=== PATIENT | female | born 1950 | race African-American/Black ===

== ENCOUNTER → 2016-03-17 | Outpatient (CLI) | payer MEDICARE, OTHER | LOC: RAD 07:44 | PROVIDERS: ATTEND Internal Medicine Gastroenterology | DX: R10.11 Right upper quadrant pain (principal) | CPT/HCPCS: 78226; A9537; Q9969 ==

== ENCOUNTER → 2016-07-04 | Outpatient (CLI) | payer MEDICARE, OTHER | LOC: OD 14:34 | PROVIDERS: ATTEND Internal Medicine | DX: M79.604 Pain in right leg (principal) ==

== ENCOUNTER → 2016-07-10 | Day surgery (SDC) | payer MEDICARE, OTHER | LOC: RAD 13:38 | PROVIDERS: ATTEND Orthopaedic Surgery | PROC: BP08ZZZ Plain Radiography of Right Shoulder (ICD-10-PCS; principal; 2016-07-10) | DX: M19.111 Post-traumatic osteoarthritis, right shoulder (principal) | CPT/HCPCS: 23350; 77002 ==

== ENCOUNTER → 2016-08-20 | Outpatient (CLI) | payer MEDICARE, OTHER ==
--- NOTE | 2016-08-20 12:54 | RADIOLOGY REPORT (SQ) ---
EXAM DESCRIPTION: CERV SP 4 OR 5 VIEWS COMPLETED DATE/TIME: 08/20/2016 12:23 pm REASON FOR STUDY: CERVICALGIA COMPARISON: 09/20/2008 NUMBER OF VIEWS: Five views. TECHNIQUE: AP, lateral, obliques and odontoid radiographic images acquired of the cervical spine. LIMITATIONS: None. FINDINGS: MINERALIZATION: Normal. ALIGNMENT: Anatomic. VERTEBRAE: Vertebral bodies of normal height. Diffuse bulky anterior osteophyte formation at C5-6, C 6-7, and C7-T1. DISCS: Mild disc space loss of height at C4-5. FORAMINA: High-grade right C3-4 and C4-5 foraminal narrowing, moderate left C4-5 foraminal narrowing from facet and uncovertebral hypertrophy LATERAL AND POSTERIOR ELEMENTS: Facets, lateral masses and spinous processes without significant find ings. HARDWARE: None in the spine. SOFT TISSUES: No masses or calcifications. Lung apices clear. OTHER: No other significant finding. IMPRESSION: Bony foraminal stenosis on the right at C3-4 and bilaterally at C4-5. Degenerative disc space loss of height at C4-5 TECHNICAL DOCUMENTATION: JOB ID: [id number]- All Rights Reserved
== END ==
LOC: RAD 11:48
PROVIDERS: ATTEND Internal Medicine
DX: M54.2 Cervicalgia (principal); M48.02 Spinal stenosis, cervical region
CPT/HCPCS: 72050

== ENCOUNTER → 2016-08-21 | Outpatient (CLI) | payer MEDICARE, OTHER ==
--- NOTE | 2016-08-21 15:28 | RADIOLOGY REPORT (SQ) ---
EXAM DESCRIPTION: KUB/ABDOMEN (SINGLE VIEW) COMPLETED DATE/TIME: 08/21/2016 2:57 pm REASON FOR STUDY: SPINAL CORD STIMULATOR GENERATOR VERIFICATION M54.12 RADICULOPATHY, CERVICAL MIAH ON M54.16 RADICULOPATHY, LUMBAR REGION COMPARISON: CT abdomen pelvis 06/05/2015 Abdominal films 01/20/2011, 12/18/2006 NUMBER OF VIEWS: One view. TECHNIQUE: Supine radiographic image of the abdomen acquired. LIMITATIONS: None. FINDINGS: BOWEL GAS PATTERN: Normal bowel gas pattern. No dilated loops. CALCIFICATIONS: No suspicious calcifications. SOFT TISSUES: No gross mass or suggestion of organomegaly. HARDWARE: clips right upper quadrant post cholecystectomy. old lower lumbar fusion hardware at l4-5. battery pack for dorsal column stimulator, leads over the t11 and t12 level. BONES: Lower lumbar fusion. OTHER: No other significant finding. IMPRESSION: Moderate stool in the colon. Spinal cord stimulator battery pack over the left gluteal region. Adjacent to the battery pack, lead s are coiled. TECHNICAL DOCUMENTATION: JOB ID: [id number] [employer]- All Rights Reserved
== END ==
LOC: RAD 13:27
PROVIDERS: ATTEND Internal Medicine
DX: M54.2 Cervicalgia (principal); M54.12 Radiculopathy, cervical region; M54.16 Radiculopathy, lumbar region
CPT/HCPCS: 74000

== ENCOUNTER → 2016-09-17 | Outpatient (CLI) | payer MEDICARE, OTHER ==
--- NOTE | 2016-09-17 13:43 | RADIOLOGY REPORT (SQ) ---
EXAM DESCRIPTION: MRI CERVICAL SPINE WITHOUT COMPLETED DATE/TIME: 09/17/2016 12:34 pm REASON FOR STUDY: RADICULOPATHY, CERVICAL REGION, RADICULOPATHY, LUMBAR REGION M54.12 RADICULOPATHY , CERVICAL REGION M54.2 CERVICALGIA COMPARISON: 03/28/2014. TECHNIQUE: Sagittal and Axial imaging includes T1, T2, STIR and gradient echo sequences. LIMITATIONS: None. FINDINGS: ALIGNMENT: Normal. VERTEBRAE: Intact. BONE MARROW: Normal. No marrow replacement or reactive changes. DISCS: Normal. No significant abnormal signal or loss of height. HARDWARE: None in the spine. CORD AND BASE OF BRAIN: Normal in size and signal intensity. SOFT TISSUES: No soft tissue masses. C1-C2: No significant spinal stenosis. C2-C3: No significant spinal stenosis or exit foraminal stenosis. C3-C4: No significant spinal stenosis or exit foraminal stenosis. C4-C5: Mild posterior disc and osteophyte and uncovertebral spurring. Facet arthropathy. No signifi cant spinal stenosis. Moderate to severe bilateral exit foraminal stenosis. C5-C6: No significant spinal stenosis or exit foraminal stenosis. C6-C7: No significant spinal stenosis or exit foraminal stenosis. C7-T1: No significant spinal stenosis or exit foraminal stenosis. UPPER THORACIC: Incompletely imaged. No significant spinal stenosis or exit foraminal stenosis. OTHER: No other significant finding. IMPRESSION: CHRONIC DEGENERATIVE CHANGES AT C4-C5 WITH MODERATE TO SEVERE BILATERAL EXIT FORAMINAL S TENOSIS. NO SIGNIFICANT SPINAL STENOSIS. SIMILAR APPEARANCE TO THE PRIOR STUDY. NO OTHER SIGNIFICA NT FINDINGS. TECHNICAL DOCUMENTATION: JOB ID: [id number] [employer]- All Rights Reserved
== END ==
LOC: RAD 10:33
PROVIDERS: ATTEND Internal Medicine
DX: M54.12 Radiculopathy, cervical region (principal); M54.2 Cervicalgia; M48.02 Spinal stenosis, cervical region
CPT/HCPCS: 72141

== ENCOUNTER → 2017-01-06 | Outpatient (CLI) | payer MEDICARE, OTHER ==
--- NOTE | 2017-01-06 18:22 | RADIOLOGY REPORT (SQ) ---
EXAM DESCRIPTION: NM LUNG VENT/PERF SCAN COMPLETED DATE/TIME: 01/06/2017 6:13 pm REASON FOR STUDY: PLEURISY R09.1 PLEURISY COMPARISON: None. RADIONUCLIDE AND DOSE: 5.4 millicuries TC-99m MAA Intravenous 30.4 millicuries TC-99m DTPA Inhaled aerosol TECHNIQUE: Eight views of the lungs acquired post ventilation of DTPA aerosol. Eight matching views of the lungs acquired following injection of MAA. LIMITATIONS: None. FINDINGS: VENTILATION: Symmetric and homogeneous distribution of DTPA aerosol during ventilatory pha se. No significant areas of photopenia. PERFUSION: Perfusion images with normal homogenous activity and no wedge-shaped or segmental defects. No ventilation-perfusion mismatches. OTHER: No other significant finding. IMPRESSION: NORMAL VENTILATION-PERFUSION LUNG SCAN. NEGATIVE FOR PULMONARY EMBOLI. TECHNICAL DOCUMENTATION: JOB ID: [id number] [employer]- All Rights Reserved
--- NOTE | 2017-01-06 18:31 | RADIOLOGY REPORT (SQ) ---
EXAM DESCRIPTION: CHEST PA/LAT COMPLETED DATE/TIME: 01/06/2017 6:19 pm REASON FOR STUDY: PLEURISY COMPARISON: 03/09/2013 EXAM PARAMETERS: NUMBER OF VIEWS: two views TECHNIQUE: Digital Frontal and Lateral radiographic views of the chest acquired. RADIATION DOSE: NA LIMITATIONS: none FINDINGS: LUNGS AND PLEURA: No opacities, masses or pneumothorax. No pleural effusion. MEDIASTINUM AND HILAR STRUCTURES: No masses or contour abnormalities. HEART AND VASCULAR STRUCTURES: Heart normal size. No evidence for failure. BONES: No acute findings. HARDWARE: Neural stimulator electrodes. OTHER: No other significant finding. IMPRESSION: NO SIGNIFICANT RADIOGRAPHIC FINDING IN THE CHEST. TECHNICAL DOCUMENTATION: JOB ID: [id number] [employer]- All Rights Reserved
== END ==
LOC: RAD 15:59
PROVIDERS: ATTEND Internal Medicine
DX: R09.1 Pleurisy (principal)
CPT/HCPCS: 71020; 78582; A9540; A9567; Q9969

== ENCOUNTER → 2017-01-08 | Outpatient (CLI) | payer MEDICARE, OTHER ==
--- NOTE | 2017-01-08 16:49 | RADIOLOGY REPORT (SQ) ---
EXAM DESCRIPTION: CT THORACIC SPINE WITHOUT COMPLETED DATE/TIME: 01/08/2017 4:06 pm REASON FOR STUDY: M54.14 THORACIC RADICULOPATHY M54.14 RADICULOPATHY, THORACIC REGION COMPARISON: MRI cervical spine 09/17/2016 PA and lateral chest 01/06/2017 TECHNIQUE: Axial images acquired through the thoracic spine without intravenous contrast. Images re viewed with lung, soft tissue and bone windows. Reconstructed coronal and sagittal MPR images review ed. Images stored on PACS. All CT scanners at this facility use dose modulation, iterative reconstruction, and/or weight based d osing when appropriate to reduce radiation dose to as low as reasonably achievable (ALARA). [facility]: Dose Right [facility]: CareDose [facility]: Dose Right [facility]: Teradose 4D [facility]: Smart [employer] RADIATION DOSE: Up-to-date CT equipment and radiation dose reduction techniques were employed. CTDIv ol: 26.4 mGy. DLP: 821 mGy-cm. mGy. LIMITATIONS: None. FINDINGS: VISUALIZED LUNGS: No acute opacities. No pneumothorax. SOFT TISSUES: No soft tissue swelling. No masses. VERTEBRAL BODIES: No fractures. No dislocation. No acute findings. DISCS: There is diffuse multilevel disc space loss of height, with anterior osteophyte formation from T2-3 through T11-12. The study was performed without intrathecal contrast. No large thoracic disc herniation is identified on soft tissue windows. ALIGNMENT: Normal. TRANSVERSE PROCESSES, POSTERIOR ELEMENTS: No fractures. No dislocation. No acute findings. HARDWARE: Neurostimulator electrodes are present dorsal epidural space from the T11 through the L1 le samuel VISUALIZED RIBS: No fractures. OTHER: Patient is likely post pain management procedure. There is air in the dorsal epidural space a t the T3 level extending out the left C3-4 neural foramen. There is air in the soft tissues between the T4 and T5 spinous processes. A small amount of contrast is present in the dorsal epidural space from the T2-3 level down to the T8-9 level. IMPRESSION: Post pain management injection with air and contrast in the dorsal thoracic epidural spa ce Multilevel disc space loss of height with anterior osteophyte formation. No high-grade bony central or foraminal encroachment. TECHNICAL DOCUMENTATION: JOB ID: [id number] Quality ID # [id number]: Final reports with documentation of one or more dose reduction techniques (e.g., Au tomated exposure control, adjustment of the mA and/or kV according to patient size, use of iterative reconstruction technique) 2010 [employer]- All Rights Reserved
== END ==
LOC: RAD 16:01
PROVIDERS: ATTEND Pain Medicine Pain Medicine
DX: M54.14 Radiculopathy, thoracic region (principal)
CPT/HCPCS: 72128

== ENCOUNTER → 2017-02-11 | Outpatient (CLI) | payer MEDICARE, OTHER ==
--- NOTE | 2017-02-11 16:20 | RADIOLOGY REPORT (SQ) ---
EXAM DESCRIPTION: PHYSIO ARTERIAL LTD COMPLETED DATE/TIME: 02/11/2017 3:19 pm REASON FOR STUDY: PVD M79.609 PAIN IN UNSPECIFIED LIMB I73.9 PERIPHERAL VASCULAR DISEASE, UNSPECIF IED COMPARISON: None. TECHNIQUE: Brachial blood pressure obtained. Pressures obtained of the peripheral vessels at the lev el of the ankle. Ankle brachial indices calculated. Continuous waveforms of the posterior tibial arteries were obtained for ABIs. Toe plethysmography was performed bilaterally. LIMITATIONS: None. FINDINGS: RIGHT MONIKA: Normal, greater than 1.0. LEFT MONIKA: Normal, greater than 1.0. Continuous waveforms along the right posterior tibial artery at the ankle are multiphasic. Continuous waveforms along the left posterior tibial artery are monophasic. On the right side, toe plethysmography demonstrates decreased amplitude and delayed upstroke of the w aveforms in the 1st through 5th digits. On the left side, plethysmography demonstrates normal amplitude and minimal if any delay in the upstr juwan of the waveforms throughout the digits. IMPRESSION: NORMAL BILATERAL ABIS. Other findings as above COMMENT: [facility] NORMAL: Greater than 1.0 MINIMAL DISEASE: 0.9 to 1.0 CLAUDICATION: 0.5 to 0.9 SEVERE ARTERIAL DISEASE: Less than 0.5 [facility] NORMAL: Greater than 1.0 (1.2 If Heavy Calcifications) NORMAL TO MILD ISCHEMIA: 0.8 to 1.0 MODERATE ISCHEMIA: 0.4 to 0.8 SEVERE ISCHEMIA: Less than 0.4 TECHNICAL DOCUMENTATION: JOB ID: [id number] [employer]- All Rights Reserved
== END ==
LOC: SP 13:49
PROVIDERS: ATTEND Podiatrist Foot Surgery
DX: I73.9 Peripheral vascular disease, unspecified (principal)
CPT/HCPCS: 93922

== ENCOUNTER 2017-02-18 22:45 | Emergency (ER) | payer MEDICARE, OTHER ==
[2017-02-18 23:15] VITALS: BP 146/66
--- NOTE | 2017-02-19 00:32 | RADIOLOGY REPORT (SQ) ---
EXAM DESCRIPTION: CHEST PA/LAT CLINICAL HISTORY: pneumonia COMPARISON: None. FINDINGS: Frontal and lateral views of the chest. The cardiomediastinal silhouette has normal size and contour. No consolidation, pneumothorax, or pleural effusion. Degenerative change of the thoracic spine. Upper abdominal soft tissues are unremarkable. Dorsal generator leads. IMPRESSION: 1. No acute pulmonary process identified.
[2017-02-19 00:59] LABS: ABSOLUTE EOSINOPHILS # (AUTO) 0.2 10^3/uL (0.0-0.6); ABSOLUTE MONOCYTES (AUTO) 1.1 10^3/uL (0.1-1.4); ABSOLUTE NEUT (AUTO) 3.2 10^3/uL (1.7-8.2); BASOPHILS % (AUTO) 0.2 % (0-2); EOSINOPHILS % (AUTO) 3.1 % (0-6); HEMATOCRIT 37.3 % (36.0-47.0); HEMOGLOBIN 12.2 g/dL (12.0-15.5); LYMPHOCYTES % (AUTO) 31.4 % (13-45); MEAN CORPUSCULAR HEMOGLOBIN 27.5 pg (27.0-33.4); MEAN CORPUSCULAR HGB CONC 32.6 g/dL (32.0-36.0); MEAN CORPUSCULAR VOLUME 84 fl (80-97); MONOCYTES % (AUTO) 16.5 % (3-13); PLATELET COUNT 227 10^3/uL (150-450); RED BLOOD COUNT 4.43 10^6/uL (3.72-5.28); RED CELL DISTRIBUTION WIDTH 15.6 % (11.5-14.0); SEGMENTED NEUTROPHILS % (AUTO) 48.8 % (42-78); TOTAL CELLS COUNTED % (AUTO) 100 %; WHITE BLOOD COUNT 6.5 10^3/uL (4.0-10.5)
[2017-02-19 01:18] LABS: ANION GAP 11 (5-19); BLOOD UREA NITROGEN 12 mg/dL (7-20); CALCIUM 9.8 mg/dL (8.4-10.2); CARBON DIOXIDE 30 mmol/L (22-30); CHLORIDE 106 mmol/L (98-107); GLUCOSE 90 mg/dL (75-110); POTASSIUM 3.9 mmol/L (3.6-5.0); SODIUM 147.3 mmol/L (137-145)
[2017-02-19] MEDS ORDERED: BENZONATATE 100 MG CAPSULE PO ONE (01:40)
--- NOTE | 2017-02-19 01:44 | ER Document Report ---
ED General - General Chief Complaint: Shortness Of Breath Stated Complaint: POSSIBLE PNEUMONIA Time Seen by Provider: 02/18/17 23:58 Notes: Patient is a 66-year-old female who presents with 3 days of cough, sputum production, loss of voice, sinus pressure, body aches, and feeling generally unwell. She saw her primary care physician today and was started on Tamiflu as well as levofloxacin for presumptive diagnosis of influenza as well as a possible pneumonia. She states that she started both these medications but has not had improvement of her symptoms. She states that she came to the emergency department because she was concerned that no chest x-ray had been performed during her office visit today. She states that the symptoms have been constant since onset, unchanged. Nothing seems to improve or worsen her symptoms. She notes multiple sick contacts over the holiday season with the same symptoms. She denies any dyspnea, syncope, but does note that her chest wall and back hurt when she coughs. TRAVEL OUTSIDE OF THE [place] IN LAST 30 DAYS: No - Related Data Allergies/Adverse Reactions: morphine [Morphine] Allergy (Mild, Verified 06/05/15 06:35) Abscess at injection site oxycodone HCl [From Percocet] Allergy (Verified 06/05/15 06:35) aspirin [Aspirin] Adverse Reaction (Unknown, Verified 06/05/15 06:35) abdominal pain Past Medical History - General Information source: Patient - Social History Smoking Status: Never Smoker Chew tobacco use (# tins/day): No Frequency of alcohol use: None Drug Abuse: None Lives with: Spouse/Significant other Family History: Reviewed & Not Pertinent Patient has suicidal ideation: No Patient has homicidal ideation: No - Past Medical History Cardiac Medical History: Reports: Hx Hypercholesterolemia, Hx Hypertension Denies: Hx Coronary Artery Disease, Hx Heart Attack Pulmonary Medical History: Reports: Hx Pneumonia Denies: Hx Asthma, Hx Bronchitis, Hx COPD, Hx Tuberculosis Neurological Medical History: Reports: Hx Migraine. Denies: Hx Cerebrovascular Accident, Hx Seizures Renal/ Medical History: Denies: Hx Peritoneal Dialysis GI Medical History: Reports: Hx Gastroesophageal Reflux Disease Musculoskeltal Medical History: Reports Hx Arthritis Psychiatric Medical History: Denies: Hx Depression Past Surgical History: Reports: Hx Appendectomy, Hx Cholecystectomy, Hx Hysterectomy, Hx Orthopedic Surgery - FOOT SURGERY, KNEE SURGERY, HIP REPLACEMENT, SHOULDER SURGERY, Hx Tonsillectomy, Hx Tubal Ligation. Denies: Hx Pacemaker - Immunizations Hx Diphtheria, Pertussis, Tetanus Vaccination: No Hx Pneumococcal Vaccination: 12/24/12 Review of Systems - Review of Systems Notes: Constitutional: Negative for fever. HENT: Negative for sore throat. Eyes: Negative for visual changes. Cardiovascular: Negative for chest pain. Respiratory: Positive for cough Gastrointestinal: Negative for abdominal pain, vomiting or diarrhea. Genitourinary: Negative for dysuria. Musculoskeletal: Negative for back pain. Skin: Negative for rash. Neurological: Negative for headaches, weakness or numbness. 10 point ROS negative except as marked above and in HPI. Physical Exam - Vital signs Vitals: Temp Pulse Resp BP Pulse Ox 98.8 F 68 22 H 146/66 H 98 02/18/17 23:14 02/18/17 23:14 02/18/17 23:14 02/18/17 23:14 02/18/17 23:14 Interpretation: Normal Notes: PHYSICAL EXAMINATION: GENERAL: Mildly uncomfortable in appearance but in no acute distress HEAD: Atraumatic, normocephalic. EYES: Pupils equal round and reactive to light, extraocular movements intact, sclera anicteric, conjunctiva are normal. ENT: nares patent, oropharynx clear without exudates. Moderately dry mucous membranes. NECK: Normal range of motion, supple without lymphadenopathy LUNGS: Breath sounds clear to auscultation bilaterally and equal. Faint expiratory wheezing in all lung jarvis. HEART: Regular rate and rhythm without murmurs ABDOMEN: Soft, nontender, normoactive bowel sounds. No guarding, no rebound. No masses appreciated. EXTREMITIES: Normal range of motion, no pitting or edema. No cyanosis. NEUROLOGICAL: No focal neurological deficits. Moves all extremities spontaneously and on command. PSYCH: Normal mood, normal affect. SKIN: Warm, Dry, normal turgor, no rashes or lesions noted. Course - Re-evaluation Re-evalutation: 02/19/17 01:39 Patient presents with a clinical history and exam most consistent with an acute viral bronchitis. Patient is overall well in appearance without tachypnea, hypoxemia, tachycardia, or difficulty with ambulation. Breath sounds are clear bilaterally. No fever. Patient does have additional signs of upper respiratory infection including nasal congestion, sore throat, and sinus pressure. Chest x-ray does not show any evidence of a pneumonia and her labs are also unremarkable without any evidence of leukocytosis or significant dehydration. Patient was placed on both levofloxacin as well as Tamiflu by her primary care doctor earlier today. I have encouraged her to discontinue Tamiflu as her symptoms have been present for more than 3 days making the effectiveness of this drug extremely low in the initial benefit of this drug is already very questionable. She will continue levofloxacin as I do not wish to dramatically alter her primary care doctor's approach. At this time will discharge with return precautions and follow-up recommendations. Verbal discharge instructions given a the bedside and opportunity for questions given. Medication warnings reviewed. Patient is in agreement with this plan and has verbalized understanding of return precautions and the need for primary care follow-up in the next 24-72 hours. - Vital Signs Vital signs: Temp Pulse Resp BP Pulse Ox 98.7 F 77 20 146/66 H 98 02/19/17 01:57 02/19/17 01:57 02/19/17 01:57 02/18/17 23:14 02/19/17 01:57 - Laboratory Result Diagrams: 02/19/17 00:46 02/19/17 00:46 Laboratory results interpreted by me: 02/19/17 02/19/17 00:46 00:46 RDW 15.6 H Monocytes % 16.5 H Sodium 147.3 H - Diagnostic Test Radiology reviewed: Image reviewed, Reports reviewed Radiology results interpreted by me: 02/19/17 01:40 Chest x-ray: No evidence for pneumonia Discharge - Discharge Clinical Impression: Bronchitis, Chest wall pain Condition: Good Disposition: HOME, SELF-CARE Additional Instructions: You were seen for symptoms most consistent with bronchitis. This can take up to 12 weeks to fully resolve. This is generally due to a viral infection. Please follow-up with your primary doctor in the next 2-3 days. Return if you develop worsening cough, vomiting, fever >100.4, pass out, begin coughing blood, or have any other symptoms that are concerning to you. Please use the medications prescribed today as directed. Prescriptions: Benzonatate [Tessalon Perles 100 mg Capsule] 100 mg PO Q8HP PRN #40 capsule PRN Reason:
== END 2017-02-19 01:57 | disposition home or self-care (01) ==
LOC: ER 22:45
DX: J40 Bronchitis, not specified as acute or chronic (principal); J02.9 Acute pharyngitis, unspecified; R09.81 Nasal congestion; R05 Cough; R07.89 Other chest pain; J34.89 Other specified disorders of nose and nasal sinuses; M54.9 Dorsalgia, unspecified; I10 Essential (primary) hypertension; Z87.01 Personal history of pneumonia (recurrent); Z88.5 Allergy status to narcotic agent
CPT/HCPCS: 99285; 36415; 85025; 80048; 71020; A9270

== ENCOUNTER → 2017-02-24 | Outpatient (CLI) | payer MEDICARE, OTHER ==
--- NOTE | 2017-02-24 13:50 | WOMENS IMAGING REPORT ---
EXAM DESCRIPTION: 3D SCREENING MAMMO BILAT COMPLETED DATE/TIME: 02/24/2017 11:21 am REASON FOR STUDY: ROUTINE SCREENING; Z12.31 Z12.31 ENCNTR SCREEN MAMMOGRAM FOR MALIGNANT NEOPLASM O F SKYLER COMPARISON: 02/21/2016 and 02/19/2015. TECHNIQUE: Standard craniocaudal and mediolateral oblique views of each breast recorded using digita l acquisition and breast tomosynthesis. LIMITATIONS: None. FINDINGS: No masses, calcifications or architectural distortion. No areas of suspicion. Read with the assistance of CAD. .[facility] R2 Cenova Version 1.3 .[facility] - R2 Cenova Version 1.3 .[facility] - R2 Cenova Version 2.4 .[facility] - R2 Cenova Version 2.4 .[facility] - R2 [employer] Mechanic Version 9.2 IMPRESSION: NORMAL MAMMOGRAM. BIRADS 1. BREAST DENSITY: b. There are scattered areas of fibroglandular density. BIRAD: 1 NEGATIVE RECOMMENDATION: ROUTINE SCREENING COMMENT: The patient has been notified of the results by letter per MQSA requirements. Additional no tification policies are in place for contacting patient with suspicious or incomplete findings. Quality ID #225: The [employer] recommends an annual screening mammogram for women aged 40 years or over. This facility utilizes a reminder system to ensure that all patients receive reminder letters, and/or direct phone calls for appointments. This includes reminders for routine scr eening mammograms, diagnostic mammograms, or other Breast Imaging Interventions when appropriate. Th is patient will be placed in the appropriate reminder system. The [employer] (ACR) has developed recommendations for screening MRI of the breast s in certain patient populations, to be used in conjunction with mammography. Breast MRI surveillanc e may be appropriate for women with more than 20% lifetime risk of developing breast cancer as deter mined by genetic testing, significant family history of the disease, or history of mantle radiation f or Hodgkins Disease. ACR Practice Guidelines 2008. DBT Technology DBT is a type of tomographic mammography. With conventional mammography, overlapping breast tissue ma y make lesions difficult to detect, even with good compression. DBT uses an x-ray tube that rotates a round the breast, taking images at different angles. These images are then combined to create thin sl ices of the breast that the radiologist can view as a 3D reconstruction. The [employer]YMEY unit can perform full-field digital mammograms (2D imaging); or DBT (3D imaging); or both, in a combination mode that quickly performs both the mammogram and the tomosynthesis scan while the breast is still compressed. PQRS 6045F: Fluoroscopic imaging is not utilized for breast tomosynthesis. TECHNICAL DOCUMENTATION: FINDING NUMBER: (1) ASSESSMENT: (1) JOB ID: [id number] [employer]- All Rights Reserved
== END ==
LOC: WI 10:03
PROVIDERS: ATTEND Obstetrics & Gynecology Gynecology
DX: Z12.31 Encounter for screening mammogram for malignant neoplasm of breast (principal)
CPT/HCPCS: 77063; G0202; 77067

== ENCOUNTER → 2017-03-24 | Outpatient (CLI) | payer MEDICARE, OTHER ==
--- NOTE | 2017-03-24 17:05 | RADIOLOGY REPORT (SQ) ---
EXAM DESCRIPTION: CT CERVICAL SPINE WITHOUT COMPLETED DATE/TIME: 03/24/2017 1:17 pm REASON FOR STUDY: M54.12 RADICULOPATHY, CERVICAL REGION M54.12 RADICULOPATHY, CERVICAL REGION COMPARISON: None. TECHNIQUE: Axial images acquired through the cervical spine without intravenous contrast. Images re viewed with lung, soft tissue and bone windows. Reconstructed coronal and sagittal MPR images review ed. Images stored on PACS. All CT scanners at this facility use dose modulation, iterative reconstruction, and/or weight based d osing when appropriate to reduce radiation dose to as low as reasonably achievable (ALARA). [facility]: Dose Right [facility]: CareDose [facility]: Dose Right [facility]: Teradose 4D [facility]: [place] RADIATION DOSE: CT Rad equipment meets quality standard of care and radiation dose reduction techniq ues were employed. CTDIvol: 20.3 mGy. DLP: 455 mGy-cm. mGy. LIMITATIONS: None. FINDINGS: ALIGNMENT: Anatomic. MINERALIZATION: Normal. VERTEBRAL BODIES: No fractures or dislocation. DISCS: Mild disc space narrowing at several levels. Most conspicuous at C4-5. Associated uncoverteb ral spurring with at least moderate foraminal narrowing bilaterally at this level. Neural foramina a re otherwise generally patent as is the central canal. FACETS, LATERAL MASSES, POSTERIOR ELEMENTS: Generally intact without bulky degenerative overgrowth. No fracture or lesion. HARDWARE: None in the spine. VISUALIZED RIBS: No fractures. LUNG APICES AND SOFT TISSUES: No significant or acute findings. OTHER: No other significant finding. IMPRESSION: 1. Cervical spondylosis, most pronounced at C4-5. TECHNICAL DOCUMENTATION: JOB ID: [id number] Quality ID # [id number]: Final reports with documentation of one or more dose reduction techniques (e.g., Au tomated exposure control, adjustment of the mA and/or kV according to patient size, use of iterative reconstruction technique) 2010 [employer]- All Rights Reserved
== END ==
LOC: RAD 13:21
PROVIDERS: ATTEND Internal Medicine
DX: M54.12 Radiculopathy, cervical region (principal); M47.892 Other spondylosis, cervical region
CPT/HCPCS: 72125

== ENCOUNTER → 2017-04-06 | Outpatient (CLI) | payer MEDICARE, OTHER ==
--- NOTE | 2017-04-06 17:01 | RADIOLOGY REPORT (SQ) ---
EXAM DESCRIPTION: HAND LEFT 2 VIEWS COMPLETED DATE/TIME: 04/06/2017 2:15 pm REASON FOR STUDY: PAIN IN LEFT HAND M79.642 PAIN IN LEFT HAND COMPARISON: None. EXAM PARAMETERS: NUMBER OF VIEWS: Three views. TECHNIQUE: AP, lateral and oblique radiographic images acquired of the left hand. LIMITATIONS: None. FINDINGS: MINERALIZATION: Normal. BONES: No acute fracture or dislocation. No worrisome bone lesions. Distal osteoarthritis of the DIP joints of the seconds 3rd and 5th digits. 1st metacarpal carpal osteoarthritis. JOINTS: No erosions. No axel-articular osteopenia. No chondrocalcinosis. SOFT TISSUES: No swelling. No calcifications. OTHER: No other significant finding. IMPRESSION: Distal osteoarthritis. 1st metacarpal carpal osteoarthritis. TECHNICAL DOCUMENTATION: JOB ID: [id number] [employer]- All Rights Reserved
== END ==
LOC: OD 13:55
PROVIDERS: ATTEND Internal Medicine
DX: M79.642 Pain in left hand (principal); M19.042 Primary osteoarthritis, left hand

== ENCOUNTER 2017-04-15 07:17 | Day surgery (SDC) | payer MEDICARE, OTHER ==
[~2017-04-15 07:17] MED LIST: CEFAZOLIN 1 GM/D5W RTU 0 GM/0 ML RTUPB IV ONE; DIPHENHYDRAMINE HCL 50 MG/ML VIAL ONE; FENTANYL CITRATE INJ/PF 100 MCG/2 ML AMPUL ONE; KETOROLAC TROMETHAMINE 60 MG/2 ML SDV ONE; LIDOCAINE 2% INJ (20 MG/ML) 20 ML MDV ONE; LIDOCAINE 2% INJ-PF (20 MG/ML) 10 ML AMPUL ONE; MIDAZOLAM 2 MG/2 ML INJ ONE; PROPOFOL INJ 200 MG/20 ML VIAL IV ONE
[2017-04-15] MEDS ORDERED: CEFAZOLIN 1 GM/D5W RTU 1 GM/50 ML RTUPB IV PRN (07:50)
[2017-04-15] MEDS ORDERED: CEFAZOLIN 1 GM/D5W RTU 1 GM/50 ML RTUPB IV ONE (07:51)
[2017-04-15] MEDS: BUPIVACAINE HCL 0.5 % INJ/PF 30 ML SDV ONE ×2 (08:07)
[2017-04-15] MEDS: POLYMYXIN B SULFATE INJ 500000 UNIT VIAL ONE ×2 (08:07)
[2017-04-15] MEDS: BACITRACIN INJ 50,000 UNIT VIAL ONE ×2 (08:07)
[2017-04-15] MEDS: NORMAL SALINE INJ/PF 0.9% 10 ML SDV ONE ×2 (08:07)
--- NOTE | 2017-04-15 10:18 | SURGICARE OPERATIVE REPORT E ---
[facility] Operative Report NAME: ADRI GARCIA AGE: 66Y DATE OF SURGERY: 04/15/2017 ROOM: PREOPERATIVE DIAGNOSES: 1. Hammertoe deformity fifth digit, right foot. 2. Contracted fifth metatarsophalangeal joint, right foot. POSTOPERATIVE DIAGNOSES: 1. Hammertoe deformity fifth digit, right foot. 2. Contracted fifth metatarsophalangeal joint, right foot. SURGICAL PROCEDURES: 1. Arthroplasty at the proximal interphalangeal joint fifth digit right foot. 2. Capsulotomy fifth metatarsophalangeal joint, right foot. SURGEON: KATIA CHURCH DPM PROCEDURE: Following induction of IV regional and local anesthesia, the right foot and leg were prepped and draped in the usual sterile manner. A pneumatic tourniquet was placed around the right ankle and inflated to 250 mmHg via Esmarch bandage. The following surgical procedures were then performed: 1. Arthroplasty at the proximal interphalangeal joint fifth digit right foot. Attention was directed to the dorsal aspect of the fifth digit of the right foot where an approximately 1.5 cm dorsal linear incision was made. The incision was deep and via sharp dissection. The extensor longus tendon was incised transversely and reflected proximally from the bone. The head of the proximal phalanx was freed from its soft tissue attachments via sharp dissection. Utilizing a double-action bone cutting forceps, the head of the proximal phalanx was osteotomized perpendicular to the long axis of the bone and removed en toto from the wound. Attention was directed to the plantar aspect of the wound where the plantar plate was isolated and sharply excised. Attention was then directed to the lateral aspect of the middle phalanx. The lateral aspect of the middle phalanx was freed from its soft tissue attachments via sharp dissection. The extensor longus tendon was freed from the dorsal aspect of the base of the middle phalanx. Utilizing a rongeur, the hypertrophied bone on the lateral aspect of the middle phalanx was removed. The area was then rasped smooth utilizing a handheld horizontal rasp. The area was then flushed with copious amounts of an antibacterial saline solution. The extensor digitorum longus tendon was sutured to the flexor tendon utilizing a simple interrupted suture of 3-0 Vicryl. The extensor digitorum longus tendon was then sutured distally and proximal and distal sections were sutured back together utilizing simple interrupted sutures of 3-0 Vicryl. The skin was then coapted and maintained utilizing horizontal mattress sutures of 5-0 nylon. 2. Capsulotomy fifth metatarsophalangeal joint right foot. An x-ray was taken to identify the location of the fifth metatarsophalangeal joint, which was then marked. An incision was made approximately 1 cm in length on the dorsal aspect of the fifth metatarsophalangeal joint. The extensor digitorum longus tendon was identified and retracted laterally. A dorsal capsulotomy was then performed via sharp dissection. This allowed the proximal phalanx to take on a more anatomically correct position. The short extensor tendon was then sharply incised, but the longus tendon was left in place. The area was then flushed with copious amounts of an antibacterial saline solution. The skin was then coapted and maintained utilizing horizontal mattress sutures of 5-0 nylon. The foot was then cleansed utilizing alcohol foam. A dry sterile dressing was then applied consisting of Jose silk, 4 x 4s, Conform, Kerlix, and Coban. The pneumatic tourniquet was released. It was noted that all digits were warm and viable. The patient was then transferred to the recovery room. DICTATING PHYSICIAN: KATIA CHURCH D.P.M. [id number] PHY#: [id number] ID: [id number] JOB#: [id number] ACCT: [id number] cc:KATIA CHURCH DPM > TOMMY
--- NOTE | 2017-04-15 10:18 | SURGICARE DISCHARGE SUMMARY E ---
[facility], [place] Discharge Summary NAME: ADRI GARCIA AGE: 66Y ADMITTED: 04/15/2017 DISCHARGED: 04/15/2017 SURGICAL PROCEDURE: 1. Arthroplasty at the proximal interphalangeal joint, 5th digit, right foot. 2. Capsulotomy 5th metatarsophalangeal joint right foot. POSTOPERATIVE DIAGNOSES: 1. Hammer toe 5th digit right foot. 2. Contracted 5th metatarsophalangeal joint, right foot. SURGEON: Conchita Braga DPM HISTORY OF PRESENT ILLNESS: Patient was admitted to [facility] with a chief complaint of a painful corn that would ulcerate, as it kept hitting on her right 5th toe. The patient desired to have this problem surgically corrected to relieve the pain and the corn that would form on her toe. She underwent the above surgical procedures without any complication and was transferred to the recovery room. DISCHARGE INSTRUCTIONS: She was discharged with an ice pack and postoperative instruction. She was discharged from [facility], [place] and given a followup appointment in the doctor's office in 1 week. DICTATING PHYSICIAN: CONCHITA BRAGA D.P.M. [id number] PHY#: [id number] ID: [id number] JOB#: [id number] ACCT: [id number] cc:CONCHITA BRAGA DPM >
--- NOTE | 2017-04-15 15:38 | RADIOLOGY REPORT (SQ) ---
EXAM DESCRIPTION: NO CHG FLUORO; FOOT RIGHT 2 VIEWS COMPLETED DATE/TIME: 04/15/2017 3:17 pm REASON FOR STUDY: RT FOOT HAMMER TOE M20.41 OTHER HAMMER TOE(S) (ACQUIRED), RIGHT FOOT COMPARISON: None. FLUOROSCOPY TIME: 1 second 2 images saved to PACS. TECHNIQUE: Intra-operative images acquired during surgical procedure to evaluate progress. NUMBER OF IMAGES: 2 LIMITATIONS: Motion artifact. FINDINGS: Images centered over lateral distal metatarsals. Surgical probe overlying 5th metatarsoph alangeal joint. IMPRESSION: IMAGE(S) OBTAINED DURING PROCEDURE. COMMENT: Quality ID [id number]: Final reports for procedures using fluoroscopy that document radiation exp osure indices, or exposure time and number of fluorographic images (if radiation exposure indices are not available) Please consult full operative report of the attending physician for description of the procedure. TECHNICAL DOCUMENTATION: JOB ID: [id number] [employer]- All Rights Reserved
== END 2017-04-15 10:01 | disposition home or self-care (01) ==
LOC: SC 07:17
PROVIDERS: ATTEND Podiatrist Foot Surgery
PROC: 0SNM0ZZ Release Right Metatarsal-Phalangeal Joint, Open Approach (ICD-10-PCS; 2017-04-15)
PROC: 0SQP0ZZ Repair Right Toe Phalangeal Joint, Open Approach (ICD-10-PCS; principal; 2017-04-15 07:30)
DX: M20.41 Other hammer toe(s) (acquired), right foot (principal); M24.574 Contracture, right foot; E78.00 Pure hypercholesterolemia, unspecified; I10 Essential (primary) hypertension; G62.9 Polyneuropathy, unspecified; Z96.653 Presence of artificial knee joint, bilateral; Z96.643 Presence of artificial hip joint, bilateral; Z88.6 Allergy status to analgesic agent
CPT/HCPCS: 73620; 28285; 28270; J2250; J3490 ×6; J0690; J1200; J1885; J3010; J2704; 01480

== ENCOUNTER 2017-04-17 18:12 | Emergency (ER) | payer MEDICARE, OTHER ==
[2017-04-17] MEDS ORDERED: HYDROCODONE/ACETAMINOPHEN 5-325 MG TABLET PO ONE (18:44)
[2017-04-17] MEDS ORDERED: HYDROMORPHONE HCL INJ/PF 2 MG/ML AMPULE IM ONE (18:47)
--- NOTE | 2017-04-17 18:48 | ER Document Report ---
ED Medical Screen (RME) - General Chief Complaint: Post Surgical Pain Stated Complaint: FOOT PAIN Time Seen by Provider: 04/17/17 18:43 Mode of Arrival: Wheelchair Information source: Patient TRAVEL OUTSIDE OF THE [place] IN LAST 30 DAYS: No - HPI Patient complains to provider of: post-op pain Onset: This morning - pt. is s/p hammer toe surgery on R foot [address] Farmer. states went back to see her earlier today due to increased pain in foot. Pain has gotten worse - Related Data Allergies/Adverse Reactions: morphine [Morphine] Allergy (Severe, Verified 04/15/17 06:58) blisters at insertion site of iv,severe nausea acetaminophen [From Percocet] Allergy (Mild, Verified 04/17/17 18:15) Generalized Itching oxycodone [From Percocet] Allergy (Mild, Verified 04/17/17 18:15) Generalized Itching aspirin [Aspirin] Adverse Reaction (Intermediate, Verified 04/15/17 06:58) abdominal pain Past Medical History - Social History Chew tobacco use (# tins/day): No Frequency of alcohol use: None Drug Abuse: None - Past Medical History Cardiac Medical History: Reports: Hx Hypercholesterolemia, Hx Hypertension - medicated Denies: Hx Coronary Artery Disease, Hx Heart Attack Pulmonary Medical History: Reports: Hx Pneumonia Denies: Hx Asthma, Hx Bronchitis, Hx COPD, Hx Tuberculosis Neurological Medical History: Reports: Hx Migraine. Denies: Hx Cerebrovascular Accident, Hx Seizures Renal/ Medical History: Denies: Hx Peritoneal Dialysis GI Medical History: Reports: Hx Gastroesophageal Reflux Disease. Denies: Hx Hepatitis, Hx Hiatal Hernia, Hx Ulcer Musculoskeltal Medical History: Reports Hx Arthritis Psychiatric Medical History: Denies: Hx Depression Infectious Medical History: Denies: Hx Hepatitis Past Surgical History: Reports: Hx Appendectomy, Hx Cholecystectomy, Hx Hysterectomy, Hx Orthopedic Surgery - FOOT SURGERY, KNEE SURGERY, HIP REPLACEMENT, SHOULDER SURGERY, Hx Tonsillectomy, Hx Tubal Ligation. Denies: Hx Mastectomy, Hx Open Heart Surgery, Hx Pacemaker - Immunizations Hx Diphtheria, Pertussis, Tetanus Vaccination: No Physical Exam - Vital signs Vitals: Temp Pulse Resp BP Pulse Ox 97.9 F 87 22 H 190/88 H 100 04/17/17 18:19 04/17/17 18:19 04/17/17 18:19 04/17/17 18:19 04/17/17 18:19 Course - Vital Signs Vital signs: Temp Pulse Resp BP Pulse Ox 97.9 F 87 22 H 190/88 H 100 04/17/17 18:19 04/17/17 18:19 04/17/17 18:19 04/17/17 18:19 04/17/17 18:19
--- NOTE | 2017-04-17 19:23 | ER Document Report ---
ED Extremity Problem, Lower - General Chief Complaint: Post Surgical Pain Stated Complaint: POST SURGICAL PAIN Time Seen by Provider: 04/17/17 18:43 Mode of Arrival: Wheelchair Notes: The patient is a 66-year-old female, past medical history hypertension, presents with pain from her postsurgical wound. She had a hammertoe removed 2 days ago by her coremaker experimental and was taking Percocet and Levasy without much relief of her symptoms. She saw her coremaker experimental this afternoon and was switched to Demerol with only mild relief of her symptoms. During the appointment this afternoon, she had a hematoma evacuated. Patient denies fevers, discharge out of the wound, numbness or tingling. TRAVEL OUTSIDE OF THE [place] IN LAST 30 DAYS: No - Related Data Allergies/Adverse Reactions: morphine [Morphine] Allergy (Severe, Verified 04/15/17 06:58) blisters at insertion site of iv,severe nausea acetaminophen [From Percocet] Allergy (Mild, Verified 04/17/17 18:15) Generalized Itching oxycodone [From Percocet] Allergy (Mild, Verified 04/17/17 18:15) Generalized Itching aspirin [Aspirin] Adverse Reaction (Intermediate, Verified 04/15/17 06:58) abdominal pain Past Medical History - General Information source: Patient - Social History Smoking Status: Former Smoker Chew tobacco use (# tins/day): No Frequency of alcohol use: None Drug Abuse: None Family History: Reviewed & Not Pertinent Patient has suicidal ideation: No Patient has homicidal ideation: No - Past Medical History Cardiac Medical History: Reports: Hx Hypercholesterolemia, Hx Hypertension - medicated Denies: Hx Coronary Artery Disease, Hx Heart Attack Pulmonary Medical History: Reports: Hx Pneumonia Denies: Hx Asthma, Hx Bronchitis, Hx COPD, Hx Tuberculosis Neurological Medical History: Reports: Hx Migraine. Denies: Hx Cerebrovascular Accident, Hx Seizures Renal/ Medical History: Denies: Hx Peritoneal Dialysis GI Medical History: Reports: Hx Gastroesophageal Reflux Disease. Denies: Hx Hepatitis, Hx Hiatal Hernia, Hx Ulcer Musculoskeltal Medical History: Reports Hx Arthritis Psychiatric Medical History: Denies: Hx Depression Infectious Medical History: Denies: Hx Hepatitis Past Surgical History: Reports: Hx Appendectomy, Hx Cholecystectomy, Hx Hysterectomy, Hx Orthopedic Surgery - FOOT SURGERY, KNEE SURGERY, HIP REPLACEMENT, SHOULDER SURGERY, Hx Tonsillectomy, Hx Tubal Ligation. Denies: Hx Mastectomy, Hx Open Heart Surgery, Hx Pacemaker - Immunizations Hx Diphtheria, Pertussis, Tetanus Vaccination: No Hx Pneumococcal Vaccination: 12/24/12 Review of Systems - Review of Systems Notes: REVIEW OF SYSTEMS: CONSTITUTIONAL: -fevers, -chills EENT: -eye pain, -difficulty swallowing, -nasal congestion CARDIOVASCULAR: -chest pain, -syncope. RESPIRATORY: -cough, -SOB GASTROINTESTINAL: -abdominal pain, -nausea, -vomiting, -diarrhea GENITOURINARY: -dysuria, -hematuria MUSCULOSKELETAL: +5th right toe pain, -back pain, -neck pain SKIN: -rash or skin lesions. HEMATOLOGIC: -easy bruising or bleeding. LYMPHATIC: -swollen, enlarged glands. NEUROLOGICAL: -altered mental status or loss of consciousness, -headache, - neurologic symptoms PSYCHIATRIC: -anxiety, -depression. ALL OTHER SYSTEMS REVIEWED AND NEGATIVE. Physical Exam - Vital signs Vitals: Temp Pulse Resp BP Pulse Ox 97.9 F 87 22 H 190/88 H 100 04/17/17 18:19 04/17/17 18:19 04/17/17 18:19 04/17/17 18:19 04/17/17 18:19 - Notes Notes: PHYSICAL EXAMINATION: GENERAL: Well-appearing, well-nourished and in no acute distress. HEAD: Atraumatic, normocephalic. EYES: Pupils equal round and reactive to light, extraocular movements intact, sclera anicteric, conjunctiva are normal. ENT: nares patent, oropharynx clear without exudates. Moist mucous membranes. NECK: Normal range of motion, supple without lymphadenopathy LUNGS: Breath sounds clear to auscultation bilaterally and equal. No wheezes rales or rhonchi. HEART: Regular rate and rhythm without murmurs ABDOMEN: Soft, nontender, normoactive bowel sounds. No guarding, no rebound. No masses appreciated. EXTREMITIES: Right 5th surgical toe wound without redness, discharge or swelling. NEUROLOGICAL: Cranial nerves grossly intact. Normal speech, normal gait. Normal sensory and motor exams. PSYCH: Normal mood, normal affect. SKIN: Warm, Dry, normal turgor, no rashes or lesions noted. Course - Re-evaluation Re-evalutation: Patient surgical wound appears well and there are no signs of a recurring hematoma or infection. X-ray did not show any concerning abnormalities. Patient already on Demerol. Instructed her to add anti-inflammatories and Tylenol. 04/17/17 20:51 PROCEDURE NOTE: Base of 5th metatarsal infiltrated with 3 mL 0.5 % Bupivicaine with complete numbness of her surgical site and relief of her pain. This was done under sterile procedure. - Vital Signs Vital signs: Temp Pulse Resp BP Pulse Ox 97.9 F 87 22 H 190/88 H 100 04/17/17 18:19 04/17/17 18:19 04/17/17 18:19 04/17/17 18:19 04/17/17 18:19 Discharge - Discharge Clinical Impression: Pain following surgery or procedure Condition: Stable Disposition: HOME, SELF-CARE Additional Instructions: There are no signs of infection or recurring hematoma today. Take the next dose of Motrin or Naprosyn tomorrow morning at 8 AM. You may take Tylenol every 4 hours and your Demerol as instructed by your coremaker experimental. Follow-up with your coremaker experimental for further evaluation and treatment. Forms: Elevated Blood Pressure Referrals: BRANDEN CROWELL MD [Primary Care Provider] - Follow up as needed
--- NOTE | 2017-04-17 19:42 | RADIOLOGY REPORT (SQ) ---
EXAM DESCRIPTION: FOOT RIGHT COMPLETE COMPLETED DATE/TIME: 04/17/2017 7:30 pm REASON FOR STUDY: R foot pain (post-op) COMPARISON: FLUOROSCOPIC IMAGES FROM 04/15/2017 NUMBER OF VIEWS: Three views. TECHNIQUE: AP, lateral and oblique radiographic images acquired of the right foot. LIMITATIONS: None. FINDINGS: MINERALIZATION: Normal. BONES: Chronic posttraumatic/ degenerative change involving the 1st metatarsal and 2nd through 4th me tatarsal bases. Stable postoperative change related to arthroplasty 5th IP joint. No definite proce dural complication identified. Stable appearance of surgical fusion involving the 2nd PIP joint. JOINTS: Stable degenerative change. SOFT TISSUES: Expected soft tissue swelling. OTHER: No other significant finding. IMPRESSION: EXPECTED POSTSURGICAL CHANGE INVOLVING THE IP JOINT OF THE 5TH TOE WITH ADDENDUM STERNAL CHRONIC POSTSURGICAL/POSTTRAUMATIC/DEGENERATIVE CHANGE ABOVE. NO DEFINITE POSTPROCEDURE COMPLICA TION. TECHNICAL DOCUMENTATION: JOB ID: [id number] [employer]- All Rights Reserved Reading location - IP/workstation name: [email or web address]
[2017-04-17] MEDS ORDERED: BUPIVACAINE HCL 0.5 % INJ/PF 30 ML SDV INJ ONE (20:24)
[2017-04-17] MEDS ORDERED: NAPROXEN 250 MG TABLET PO ONE (20:24)
[2017-04-17 21:11] VITALS: BP 137/73
== END 2017-04-17 21:12 | disposition home or self-care (01) ==
LOC: ER 18:12
DX: G89.18 Other acute postprocedural pain (principal); I10 Essential (primary) hypertension; Z98.890 Other specified postprocedural states; Z87.891 Personal history of nicotine dependence
CPT/HCPCS: 99283; 96372; 73630; J3490; A9270; J1170

== ENCOUNTER 2017-04-23 13:38 | Observation (INO) | payer MEDICARE, OTHER ==
[2017-04-23] MEDS: NORMAL SALINE 1000 ML 1,000 ML IV PRN (14:06)
[2017-04-23 15:40] LABS: A TYPE INFLUENZA AG NEGATIVE (NEGATIVE); B INFLUENZA AG NEGATIVE (NEGATIVE)
--- NOTE | 2017-04-23 16:39 | RADIOLOGY REPORT (SQ) ---
EXAM DESCRIPTION: KUB/ABDOMEN (SINGLE VIEW) COMPLETED DATE/TIME: 04/23/2017 4:27 pm REASON FOR STUDY: ABDOMINAL PAIN R10.9 UNSPECIFIED ABDOMINAL PAIN R19.7 DIARRHEA, UNSPECIFIED COMPARISON: None. NUMBER OF VIEWS: One view. TECHNIQUE: Supine radiographic image of the abdomen acquired. LIMITATIONS: None. FINDINGS: BOWEL GAS PATTERN: Normal bowel gas pattern. No dilated loops. CALCIFICATIONS: No suspicious calcifications. SOFT TISSUES: No gross mass or suggestion of organomegaly. HARDWARE: Clips in the upper abdomen. Hardware in the lower lumbar spine. Spinal stimulator device with electrodes. Bilateral hip prosthesis. BONES: No acute fracture. No worrisome bone lesions. OTHER: No other significant finding. IMPRESSION: NO RADIOGRAPHIC EVIDENCE FOR ACUTE ABDOMINAL DISEASE. TECHNICAL DOCUMENTATION: JOB ID: [id number] 1996 [employer]- All Rights Reserved Reading location - IP/workstation name: [email or web address]
--- NOTE | 2017-04-23 16:39 | RADIOLOGY REPORT (SQ) ---
EXAM DESCRIPTION: CHEST PA/LAT COMPLETED DATE/TIME: 04/23/2017 4:27 pm REASON FOR STUDY: FEVER, BODY CHILLS COMPARISON: 02/19/2017. EXAM PARAMETERS: NUMBER OF VIEWS: two views TECHNIQUE: Digital Frontal and Lateral radiographic views of the chest acquired. RADIATION DOSE: NA LIMITATIONS: none FINDINGS: LUNGS AND PLEURA: No opacities, masses or pneumothorax. No pleural effusion. MEDIASTINUM AND HILAR STRUCTURES: No masses or contour abnormalities. HEART AND VASCULAR STRUCTURES: Heart normal size. No evidence for failure. BONES: No acute findings. Degenerative changes in the spine. HARDWARE: None in the chest. Clips in the upper abdomen. Spinal stimulator electrodes. OTHER: No other significant finding. IMPRESSION: NO SIGNIFICANT RADIOGRAPHIC FINDING IN THE CHEST. TECHNICAL DOCUMENTATION: JOB ID: [id number] [employer]- All Rights Reserved Reading location - IP/workstation name: [email or web address]
[2017-04-23 16:42] LABS: HEMATOCRIT 44.6 % (36.0-47.0); HEMOGLOBIN 14.7 g/dL (12.0-15.5); MEAN CORPUSCULAR HEMOGLOBIN 27.8 pg (27.0-33.4); MEAN CORPUSCULAR HGB CONC 33.1 g/dL (32.0-36.0); MEAN CORPUSCULAR VOLUME 84 fl (80-97); PLATELET COUNT 344 10^3/uL (150-450); RED BLOOD COUNT 5.31 10^6/uL (3.72-5.28); WHITE BLOOD COUNT 10.3 10^3/uL (4.0-10.5)
[2017-04-23 17:04] LABS: ALANINE AMINOTRANSFERASE 65 U/L (9-52); ALKALINE PHOSPHATASE 126 U/L (38-126); ANION GAP 15 (5-19); ASPARTATE AMINO TRANSFERASE 25 U/L (14-36); BILIRUBIN,DIRECT 0.4 mg/dL (0.0-0.4); BILIRUBIN,TOTAL 0.5 mg/dL (0.2-1.3); BLOOD UREA NITROGEN 12 mg/dL (7-20); CALCIUM 10.5 mg/dL (8.4-10.2); CARBON DIOXIDE 23 mmol/L (22-30); CHLORIDE 105 mmol/L (98-107); GLUCOSE 96 mg/dL (75-110); POTASSIUM 4.1 mmol/L (3.6-5.0); TOTAL PROTEIN 8.5 g/dL (6.3-8.2)
[2017-04-23 17:19] LABS: FREE T4 (FREE THYROXINE) 1.16 ng/dL (0.78-2.19)
[2017-04-23 17:33] LABS: THYROID STIMULATING HORMONE 0.79 uIU/mL (0.47-4.68)
[2017-04-23] MEDS ORDERED: MECLIZINE HCL 25 MG TABLET PO PRN (19:13)
[2017-04-23] MEDS ORDERED: HYDROXYZINE PAMOATE 25 MG CAPSULE PO PRN (19:13)
[2017-04-23] MEDS ORDERED: (PENDING PHARMACY ID) (Linaclotide 145 MCG) PO SCH (20:00)
[2017-04-23] MEDS ORDERED: (PENDING PHARMACY ID) (Zaleplon [Sonata] 10 MG) PO SCH ×2 (20:00→22:00)
[2017-04-23] MEDS ORDERED: (PENDING PHARMACY ID) (Tapentadol Hcl [Nucynta] 100 MG) PO SCH (20:00)
[2017-04-23] MEDS: OXYCODONE-ACETAMINOPHEN 5-325 MG TABLET PO PRN (21:36)
[2017-04-23] MEDS: DIPHENHYDRAMINE HCL 50 MG CAPSULE PO PRN (21:37)
[2017-04-24] MEDS: DIPHENHYDRAMINE HCL 50 MG CAPSULE PO PRN ×2 (05:41→21:42)
[2017-04-24] MEDS: OXYCODONE-ACETAMINOPHEN 5-325 MG TABLET PO PRN ×2 (05:41→21:42)
[2017-04-24] MEDS: NORMAL SALINE 1000 ML 1,000 ML IV PRN ×3 (05:43→21:42)
[2017-04-24] MEDS: LANSOPRAZOLE 30 MG TAB.RAP.DR PO SCH (05:44)
[2017-04-24] MEDS: LOSARTAN POTASSIUM 50 MG TABLET PO SCH (09:13)
[2017-04-24] MEDS: PREGABALIN 50 MG CAPSULE PO SCH (09:14)
[2017-04-24] MEDS: OMEGA-3 ACID ETHYL ESTERS 1 GM CAPSULE PO SCH (09:22)
[2017-04-24] MEDS ORDERED: (PENDING PHARMACY ID) (Pitavastatin Calcium [Livalo] 2 MG) PO SCH (10:00)
[2017-04-24] MEDS ORDERED: (PENDING PHARMACY ID) (Esomeprazole Mag Trihydrate [Nexium] 40 MG) PO SCH (10:00)
[2017-04-24] MEDS ORDERED: (PENDING PHARMACY ID) (Tapentadol Hcl [Nucynta] 100 MG) PO SCH (10:00)
[2017-04-24] MEDS ORDERED: (PENDING PHARMACY ID) (Telmisartan [Micardis 80 Mg Tablet] 80 MG) PO SCH (10:00)
[2017-04-24] MEDS ORDERED: EPA PO SCH (10:00)
[2017-04-24] MEDS ORDERED: FISH OIL PO SCH (10:00)
[2017-04-24] MEDS ORDERED: DHA PO SCH (10:00)
[2017-04-24] MEDS ORDERED: (PENDING PHARMACY ID) (Linaclotide 145 MCG) PO SCH (10:00)
[2017-04-24] MEDS ORDERED: ATORVASTATIN CALCIUM 10 MG TABLET PO SCH ×2 (10:00→21:00)
[2017-04-24] MEDS ORDERED: ONDANSETRON HCL INJ/PF 4 MG/2 ML SDV IV PRN (12:33)
[2017-04-24] MEDS ORDERED: ONDANSETRON HCL INJ/PF 4 MG/2 ML SDV ONE (13:12)
[2017-04-24] MEDS ORDERED: ZOLPIDEM TARTRATE 5 MG TABLET PO PRN (19:08)
--- NOTE | 2017-04-24 20:30 | PDOC H&P ---
History of Present Illness Admission Date/PCP: 04/23/17 13:38 BRANDEN CROWELL MD History of Present Illness: ADRI GARCIA is a 66 year old female, She came to the office for evaluation of diarrhea vomiting generalized body aches for the last couple of days. She stated that she is not able to keep any food down, she recently had a foot procedure done, she was prescribed Demerol by the diesel engine tester, I thought Demerol is no longer available a prescription because of his potential side effects which includes but not limited to increased body temperature generalized malaise. The apparent cause of her symptoms was not clear in the office ,because she was not able to keep any food in the stomach with the potential for dehydration she was admitted directly from the office to the hospital for evaluation and management of her symptoms. The blood that was done including hemogram, comprehensive metabolic panel was all normal she was admitted essentially for hydration. The most likely proximate cause of her symptom is the medication Demerol that she is presently taking for the control pain. She was advised to stop the medication Past Medical History Cardiac Medical History: Reports: Hyperlipidema, Hypertension - medicated Pulmonary Medical History: Reports: Pneumonia Neurological Medical History: Reports: Migraine GI Medical History: Reports: Gastroesophageal Reflux Disease Musculoskeltal Medical History: Reports: Arthritis Past Surgical History Past Surgical History: Reports: Appendectomy, Cholecystectomy, Hysterectomy, Orthopedic Surgery - FOOT SURGERY, KNEE SURGERY, HIP REPLACEMENT, SHOULDER SURGERY, Tonsillectomy, Tubal Ligation Social History Smoking Status: Never Smoker Frequency of Alcohol Use: None Hx Recreational Drug Use: No Drugs: None Hx Prescription Drug Abuse: No Family History Family History: Reviewed & Not Pertinent Parental Family History Reviewed: Yes Children Family History Reviewed: Yes Sibling(s) Family History Reviewed.: Yes Medication/Allergy Home Medications: Diphenhydramine HCl [Benadryl 50 mg Capsule] 50 mg PO Q6HP PRN 04/23/17 Esomeprazole Mag Trihydrate [Nexium] 40 mg PO DAILY 04/23/17 Fish Oil/Dha/Epa [Fish Oil 1,200 mg Fish Oil] 1 cap PO DAILY 04/23/17 Hydroxyzine Pamoate [Vistaril 25 mg Capsule] 25 mg PO DAILYP PRN 04/23/17 Linaclotide [Linzess 145 Mcg Capsule] 145 mcg PO DAILY 04/23/17 Meclizine HCl [Antivert 25 mg Tablet] 25 mg PO TIDP PRN 04/23/17 Oxycodone HCl/Acetaminophen [Oxycodone-Acetaminophen 5-325] 1 tab PO Q6HP PRN Pantoprazole Sodium [Protonix] 40 mg PO DAILY 04/23/17 Pitavastatin Calcium [Livalo] 2 mg PO DAILY 04/23/17 Pregabalin [Lyrica] 50 mg PO DAILY 04/23/17 Tapentadol HCl [Nucynta] 100 mg PO DAILY 04/23/17 Telmisartan [Micardis 80 mg Tablet] 80 mg PO DAILY 04/23/17 Zaleplon [Sonata] 10 mg PO QHS 04/23/17 Allergies/Adverse Reactions: morphine [Morphine] Allergy (Severe, Verified 04/15/17 06:58) blisters at insertion site of iv,severe nausea acetaminophen [From Percocet] Allergy (Mild, Verified 04/17/17 18:15) Generalized Itching oxycodone [From Percocet] Allergy (Mild, Verified 04/17/17 18:15) Generalized Itching aspirin [Aspirin] Adverse Reaction (Intermediate, Verified 04/15/17 06:58) abdominal pain Review of Systems Constitutional: ABSENT: chills, fever(s), headache(s), weight gain, weight loss Eyes: ABSENT: visual disturbances Ears: ABSENT: hearing changes Cardiovascular: ABSENT: chest pain, dyspnea on exertion, edema, orthropnea, palpitations Respiratory: ABSENT: cough, hemoptysis Gastrointestinal: PRESENT: diarrhea, vomiting Genitourinary: ABSENT: dysuria, hematuria Musculoskeletal: ABSENT: joint swelling Integumentary: ABSENT: rash, wounds Neurological: ABSENT: abnormal gait, abnormal speech, confusion, dizziness, focal weakness, syncope Psychiatric: ABSENT: anxiety, depression, homidical ideation, suicidal ideation Endocrine: ABSENT: cold intolerance, heat intolerance, menstrual abnormalities, polydipsia, polyuria Hematologic/Lymphatic: ABSENT: easy bleeding, easy bruising, lymphadenopathy Physical Exam Vital Signs: Temp Pulse Resp BP Pulse Ox 98.2 F 67 17 148/67 H 99 04/24/17 15:46 04/24/17 15:46 04/24/17 15:46 04/24/17 15:46 04/24/17 15:46 Intake & Output 04/23/17 04/24/17 04/25/17 06:59 06:59 06:59 Intake Total 2229 266 Output Total 650 Balance 2229 -384 Weight 88.451 kg 88.451 kg General appearance: PRESENT: no acute distress, well-developed, well-nourished Head exam: PRESENT: atraumatic, normocephalic Eye exam: PRESENT: conjunctiva pink, EOMI, PERRLA Ear exam: PRESENT: normal external ear exam Neck exam: PRESENT: full ROM Respiratory exam: PRESENT: clear to auscultation uyen Cardiovascular exam: PRESENT: RRR, +S1, +S2 Vascular exam: PRESENT: normal capillary refill GI/Abdominal exam: PRESENT: normal bowel sounds, soft Rectal exam: PRESENT: deferred Neurological exam: PRESENT: alert, awake, oriented to person, oriented to place , oriented to time, oriented to situation, CN II-XII grossly intact Psychiatric exam: PRESENT: appropriate affect, normal mood Skin exam: PRESENT: dry, intact, warm Results Laboratory Results: 04/23/17 16:05 04/23/17 16:05 Impressions: Chest X-Ray 04/23/17 00:00 IMPRESSION: NO SIGNIFICANT RADIOGRAPHIC FINDING IN THE CHEST. KUB X-Ray 04/23/17 00:00 IMPRESSION: NO RADIOGRAPHIC EVIDENCE FOR ACUTE ABDOMINAL DISEASE. Assessment & Plan - Diagnosis (1) Gastroenteritis Is this a current diagnosis for this admission?: Yes Plan: Patient was admitted for observation and management with IV fluid to prevent dehydration because of persistent vomiting and not able to keep any food in the stomach
--- NOTE | 2017-04-24 20:35 | PDOC DISCHARGE SUMMARY ---
General - Admit/Disc Date/PCP Admission Date/Primary Care Provider: 04/23/17 13:38 BRANDEN CROWELL MD Discharge Date: 04/24/17 - Discharge Diagnosis (1) Gastroenteritis Is this a current diagnosis for this admission?: Yes - Additional Information Discharge Activity: Activity As Tolerated Home Medications: Diphenhydramine HCl [Benadryl 50 mg Capsule] 50 mg PO Q6HP PRN 04/23/17 Esomeprazole Mag Trihydrate [Nexium] 40 mg PO DAILY 04/23/17 Fish Oil/Dha/Epa [Fish Oil 1,200 mg Fish Oil] 1 cap PO DAILY 04/23/17 Hydroxyzine Pamoate [Vistaril 25 mg Capsule] 25 mg PO DAILYP PRN 04/23/17 Linaclotide [Linzess 145 Mcg Capsule] 145 mcg PO DAILY 04/23/17 Meclizine HCl [Antivert 25 mg Tablet] 25 mg PO TIDP PRN 04/23/17 Oxycodone HCl/Acetaminophen [Oxycodone-Acetaminophen 5-325] 1 tab PO Q6HP PRN Pantoprazole Sodium [Protonix] 40 mg PO DAILY 04/23/17 Pitavastatin Calcium [Livalo] 2 mg PO DAILY 04/23/17 Pregabalin [Lyrica] 50 mg PO DAILY 04/23/17 Tapentadol HCl [Nucynta] 100 mg PO DAILY 04/23/17 Telmisartan [Micardis 80 mg Tablet] 80 mg PO DAILY 04/23/17 Zaleplon [Sonata] 10 mg PO QHS 04/23/17 History of Present Illness History of Present Illness: ADRI GARCIA is a 66 year old female, She came to the office for evaluation of diarrhea vomiting generalized body aches for the last couple of days. She stated that she is not able to keep any food down, she recently had a foot procedure done, she was prescribed Demerol by the shirrer, I thought Demerol is no longer available a prescription because of his potential side effects which includes but not limited to increased body temperature generalized malaise. The apparent cause of her symptoms was not clear in the office ,because she was not able to keep any food in the stomach with the potential for dehydration she was admitted directly from the office to the hospital for evaluation and management of her symptoms. The blood that was done including hemogram, comprehensive metabolic panel was all normal she was admitted essentially for hydration. The most likely proximate cause of her symptom is the medication Demerol that she is presently taking for the control pain. She was advised to stop the medication Hospital Course Hospital Course: She was admitted for the management of gastroenteritis the potential for dehydration due to inability to keep any food down. She was treated with IV fluid, the blood work was negative there was no diarrhea experienced in the hospital though she said she had diarrhea at home. It was felt that the cause of the gastroenteritis is Demerol, the medication that was prescribed by the shirrer Physical Exam Vital Signs: Temp Pulse Resp BP Pulse Ox 98.2 F 67 17 148/67 H 99 04/24/17 15:46 04/24/17 15:46 04/24/17 15:46 04/24/17 15:46 04/24/17 15:46 Intake & Output 04/23/17 04/24/17 04/25/17 06:59 06:59 06:59 Intake Total 2229 266 Output Total 650 Balance 2229 -384 Weight 88.451 kg 88.451 kg General appearance: PRESENT: no acute distress, well-developed, well-nourished Head exam: PRESENT: atraumatic, normocephalic Eye exam: PRESENT: conjunctiva pink, EOMI, PERRLA. ABSENT: scleral icterus Ear exam: PRESENT: normal external ear exam Mouth exam: PRESENT: moist, tongue midline Neck exam: PRESENT: full ROM Respiratory exam: PRESENT: clear to auscultation uyen Cardiovascular exam: PRESENT: RRR, +S1, +S2 Pulses: PRESENT: normal dorsalis pedis pul, +2 pedal pulses bilateral Vascular exam: PRESENT: normal capillary refill GI/Abdominal exam: PRESENT: normal bowel sounds, soft Rectal exam: PRESENT: deferred Neurological exam: PRESENT: alert, awake, oriented to person, oriented to place , oriented to time, oriented to situation, CN II-XII grossly intact. ABSENT: motor sensory deficit Psychiatric exam: PRESENT: appropriate affect, normal mood Skin exam: PRESENT: dry, intact, warm Results Laboratory Results: 04/23/17 16:05 04/23/17 16:05 Impressions: Chest X-Ray 04/23/17 00:00 IMPRESSION: NO SIGNIFICANT RADIOGRAPHIC FINDING IN THE CHEST. KUB X-Ray 04/23/17 00:00 IMPRESSION: NO RADIOGRAPHIC EVIDENCE FOR ACUTE ABDOMINAL DISEASE. Qualifiers - * PATEINT BEING DISCHARGED WITH ANY OF THE FOLLOWING DIAGNOSIS?: No VTE patient discharged on overlapping Therapy?: Yes
[2017-04-25] MEDS: LANSOPRAZOLE 30 MG TAB.RAP.DR PO SCH (05:36)
[2017-04-25] MEDS: OMEGA-3 ACID ETHYL ESTERS 1 GM CAPSULE PO SCH (10:14)
[2017-04-25] MEDS: PREGABALIN 50 MG CAPSULE PO SCH (10:16)
[2017-04-25] MEDS: LOSARTAN POTASSIUM 50 MG TABLET PO SCH (10:16)
[2017-04-25 10:41] VITALS: BP 107/63
== END 2017-04-25 11:00 | disposition home or self-care (01) ==
LOC: 5 13:38
PROVIDERS: ADMIT Internal Medicine; ATTEND Internal Medicine
DX: K52.9 Noninfective gastroenteritis and colitis, unspecified (principal); K21.9 Gastro-esophageal reflux disease without esophagitis; E78.5 Hyperlipidemia, unspecified; R52 Pain, unspecified; M19.90 Unspecified osteoarthritis, unspecified site; I10 Essential (primary) hypertension; Z90.710 Acquired absence of both cervix and uterus; Z79.899 Other long term (current) drug therapy; Z98.890 Other specified postprocedural states; Z90.49 Acquired absence of other specified parts of digestive tract
CPT/HCPCS: 36415; 84439; 84443; 85027; 80076; 80048; 87804; 71046; 74018; A9270 ×10; J2405; J7030 ×2; J3490

== ENCOUNTER 2017-06-04 14:21 | Emergency (ER) | payer MEDICARE, OTHER ==
--- NOTE | 2017-06-04 15:07 | ER Document Report ---
ED Medical Screen (RME) - General Chief Complaint: Back Pain Stated Complaint: BACK AND HIP PAIN Time Seen by Provider: 06/04/17 14:58 Notes: 66-year-old female patient sees Dr. Villarreal for pain management, has a spinal stimulator. She reports Thursday she was picking up some toddlers which is not unusual for her. Thursday evening she developed pain in her low back and going down the groin bilaterally. She reports it was getting worse so she should went to her pain management doctor yesterday. She saw an assistant general manager and received a shot of Toradol and a shot of steroids. She reports pain is been getting worse since then. I have greeted and performed a rapid initial assessment of this patient. A comprehensive ED assessment and evaluation of the patient, analysis of test results and completion of the medical decision making process will be conducted by additional ED providers. TRAVEL OUTSIDE OF THE [place] IN LAST 30 DAYS: No - Related Data Allergies/Adverse Reactions: morphine [Morphine] Allergy (Severe, Verified 06/04/17 14:22) blisters at insertion site of iv,severe nausea oxycodone [From Percocet] Allergy (Mild, Verified 06/04/17 14:22) Generalized Itching aspirin [Aspirin] Adverse Reaction (Intermediate, Verified 06/04/17 14:22) abdominal pain Past Medical History - Social History Chew tobacco use (# tins/day): No Drug Abuse: None - Past Medical History Cardiac Medical History: Reports: Hx Hypercholesterolemia, Hx Hypertension - medicated Pulmonary Medical History: Reports: Hx Pneumonia Denies: Hx Asthma, Hx Bronchitis, Hx COPD, Hx Tuberculosis Neurological Medical History: Reports: Hx Migraine. Denies: Hx Cerebrovascular Accident, Hx Seizures Renal/ Medical History: Denies: Hx Peritoneal Dialysis GI Medical History: Reports: Hx Gastroesophageal Reflux Disease. Denies: Hx Hepatitis, Hx Hiatal Hernia, Hx Ulcer Musculoskeltal Medical History: Reports Hx Arthritis Psychiatric Medical History: Denies: Hx Depression Infectious Medical History: Denies: Hx Hepatitis Past Surgical History: Reports: Hx Appendectomy, Hx Cholecystectomy, Hx Hysterectomy, Hx Orthopedic Surgery - FOOT SURGERY, KNEE SURGERY, HIP REPLACEMENT, SHOULDER SURGERY, Hx Tonsillectomy, Hx Tubal Ligation. Denies: Hx Mastectomy, Hx Open Heart Surgery, Hx Pacemaker - Immunizations Hx Diphtheria, Pertussis, Tetanus Vaccination: No History of Influenza Vaccine for 11/2016 - 04/2017 Season: Yes Influenza Administration Date for 11/2016 - 04/2017 Season: 12/24/16 Physical Exam - Vital signs Vitals: Temp Pulse Resp BP Pulse Ox 98.0 F 66 16 154/77 H 97 06/04/17 14:25 06/04/17 14:25 06/04/17 14:25 06/04/17 14:25 06/04/17 14:25 Course - Vital Signs Vital signs: Temp Pulse Resp BP Pulse Ox 98.0 F 66 16 154/77 H 97 06/04/17 14:25 06/04/17 14:25 06/04/17 14:51 06/04/17 14:25 06/04/17 14:25 Doctor's Discharge - Discharge Referrals: BRANDEN CROWELL MD [Primary Care Provider] - Follow up as needed
[2017-06-04 15:36] LABS: APPEARANCE,URINE CLEAR; BILIRUBIN,URINE NEGATIVE (NEGATIVE); COLOR,URINE YELLOW; GLUCOSE, URINE NEGATIVE (NEGATIVE); KETONES,URINE NEGATIVE (NEGATIVE); LEUKOCYTE ESTERASE,URINE TRACE (NEGATIVE); NITRITE,URINE NEGATIVE (NEGATIVE); PROTEIN,URINE NEGATIVE (NEGATIVE); URINE SPECIFIC GRAVITY 1.017
--- NOTE | 2017-06-04 16:05 | ER Document Report ---
ED General Pain - General Chief Complaint: Back Pain Stated Complaint: BACK AND HIP PAIN Time Seen by Provider: 06/04/17 14:58 Mode of Arrival: Ambulatory Information source: Patient Notes: 66-year-old female with history of bilateral hip replacements, back surgery, bilateral knee replacements is complaining of exacerbation of her chronic low back pain that radiates to both sides of her groin. The pain is in the same location and the radiation is same as when she has these acute episodes every 6 months. She thought she would be able to see her doctor today to get a pain shot.. The lidocaine patches and Nucynta have not relieved the pain. She did not take hydrocodone. There is no saddle anesthesia or radiculopathy. No nausea vomiting or diarrhea. No chest pain or shortness of breath. No fever or chills. No IV drug use. She saw her chronic pain management yesterday and was given a shot of Toradol and steroids which did not help so she came to the emergency room today to get further treatment for pain. TRAVEL OUTSIDE OF THE [place] IN LAST 30 DAYS: No - Related Data Allergies/Adverse Reactions: morphine [Morphine] Allergy (Severe, Verified 06/04/17 14:22) blisters at insertion site of iv,severe nausea oxycodone [From Percocet] Allergy (Mild, Verified 06/04/17 14:22) Generalized Itching aspirin [Aspirin] Adverse Reaction (Intermediate, Verified 06/04/17 14:22) abdominal pain Past Medical History - General Information source: Patient - Social History Smoking Status: Never Smoker Chew tobacco use (# tins/day): No Frequency of alcohol use: None Drug Abuse: None Lives with: Spouse/Significant other Family History: Reviewed & Not Pertinent Patient has suicidal ideation: No Patient has homicidal ideation: No - Past Medical History Cardiac Medical History: Reports: Hx Hypercholesterolemia, Hx Hypertension - medicated Pulmonary Medical History: Reports: Hx Pneumonia Neurological Medical History: Reports: Hx Migraine Renal/ Medical History: Denies: Hx Peritoneal Dialysis GI Medical History: Reports: Hx Gastroesophageal Reflux Disease Musculoskeltal Medical History: Reports Hx Arthritis Psychiatric Medical History: Denies: Hx Depression Past Surgical History: Reports: Hx Appendectomy, Hx Cholecystectomy, Hx Hysterectomy, Hx Orthopedic Surgery - FOOT SURGERY, KNEE SURGERY, HIP REPLACEMENT, SHOULDER SURGERY, Hx Tonsillectomy, Hx Tubal Ligation - Immunizations Hx Diphtheria, Pertussis, Tetanus Vaccination: No Hx Pneumococcal Vaccination: 12/24/12 Review of Systems - Review of Systems Constitutional: No symptoms reported EENT: No symptoms reported Cardiovascular: No symptoms reported Respiratory: No symptoms reported Gastrointestinal: No symptoms reported Genitourinary: No symptoms reported Female Genitourinary: No symptoms reported Musculoskeletal: See HPI Skin: No symptoms reported Hematologic/Lymphatic: No symptoms reported Neurological/Psychological: No symptoms reported Physical Exam - Vital signs Vitals: Temp Pulse Resp BP Pulse Ox 98.0 F 66 16 154/77 H 97 06/04/17 14:25 06/04/17 14:25 06/04/17 14:25 06/04/17 14:25 06/04/17 14:25 Interpretation: Normal - General General appearance: Appears well, Alert, Anxious Notes: Rocking and rubbing her anterior thighs - HEENT Head: Normocephalic, Atraumatic Eyes: Normal Conjunctiva: Normal Pupils: PERRL Neck: Supple. No: Lymphadenopathy - Respiratory Respiratory status: No respiratory distress Chest status: Nontender Breath sounds: Normal Chest palpation: Normal - Cardiovascular Rhythm: Regular Heart sounds: Normal auscultation Murmur: No - Abdominal Inspection: Normal Distension: No distension Bowel sounds: Normal Tenderness: Nontender. No: Tender Organomegaly: No organomegaly. No: Hepatomegaly, Splenomegaly Notes: point tender bilateral anterior iliac spines muscular insertion locations. - Back Back: Normal, Tender - upper bilateral lumbar paraspianl mucslces. No: Deformity/step-off, CVA tenderness - Extremities General upper extremity: Normal inspection, Nontender, Normal color, Normal ROM , Normal temperature General lower extremity: Normal inspection, Nontender, Normal color, Normal ROM , Normal temperature, Normal weight bearing. No: Kike's sign - Neurological Neuro grossly intact: Yes Cognition: Normal Orientation: AAOx4 Letitia Coma Scale Eye Opening: Spontaneous Camino Coma Scale Verbal: Oriented [place] Coma Scale Motor: Obeys Commands Letitia Coma Scale Total: 15 Speech: Normal Motor strength normal: LUE, RUE, LLE, RLE Sensory: Normal - Psychological Associated symptoms: Normal affect, Normal mood - Skin Skin Temperature: Warm Skin Moisture: Dry Skin Color: Normal Skin irregularity: negative: Rash Course - Re-evaluation Re-evalutation: 06/04/17 18:17 pt does not feel better, squirming in the chair, states that when she presses her upper abdomen now, it hurts through to the back "don't you think I need a scan or something? or at least more pain mediation?" Labs - wbc10.6, chem normal , ua 2 wbc, 1 rbc, no bacteria. 06/04/17 18:[address] Vance we will get a IV contrast the CT of the chest abdomen and pelvis. And I told the patient this. need to start a IV and we need to check a lipase. 06/04/17 20:08 They are unable to get an IV and patient does not want to be attempted for any IV sticks I did verify this with Dr. Vance. He states that is okay to get a noncontrasted CT of the chest abdomen and pelvis, if negative, pt can be discharged home. Lipase is normal. 06/04/17 21:00 CT scan of the chest abdomen and pelvis are negative, the aorta is normal, the hardware is fine. Vitals are stable I will discharge home and she can take her hydrocodone follow-up with her doctor. - Vital Signs Vital signs: Temp Pulse Resp BP Pulse Ox 98.4 F 67 16 149/69 H 98 06/04/17 20:59 06/04/17 20:59 06/04/17 20:59 06/04/17 20:59 06/04/17 20:59 - Laboratory Result Diagrams: 06/04/17 16:20 06/04/17 16:20 Laboratory results interpreted by me: 06/04/17 06/04/17 15:07 16:20 WBC 10.6 H RDW 16.3 H Urine Urobilinogen 2.0 H Ur Leukocyte Esterase TRACE H Discharge - Discharge Clinical Impression: Exacerbation of chronic back pain, bilateral hip pelvis pain, Upper abdominal pain Condition: Good Disposition: HOME, SELF-CARE Instructions: Low Back Pain ([facility]), Pain Medication Injection ([facility]), Warm Packs ([facility]) Additional Instructions: Take your hydrocodone that you have at home 5 mg. IT is an opiate which is similar to the hydromorphone 1mg that I gave you in the ER. When you have this bad flare that is why you have the hydrocodone and it will help with the pain more than the Nucynta. see your pain global engineering manager tomorrow and let them know that you got the injection in the ER Referrals: BRANDEN CROWELL MD [Primary Care Provider] - Follow up as needed ALEN VERNON PA-C [NO LOCAL MD] - Follow up tomorrow
[2017-06-04 16:30] LABS: ABSOLUTE BASOPHILS # (AUTO) 0.1 10^3/uL (0.0-0.2); ABSOLUTE EOSINOPHILS # (AUTO) 0.1 10^3/uL (0.0-0.6); ABSOLUTE LYMPHOCYTES (AUTO) 2.5 10^3/uL (0.5-4.7); ABSOLUTE MONOCYTES (AUTO) 0.7 10^3/uL (0.1-1.4); ABSOLUTE NEUT (AUTO) 7.3 10^3/uL (1.7-8.2); BASOPHILS % (AUTO) 0.7 % (0-2); EOSINOPHILS % (AUTO) 0.6 % (0-6); HEMATOCRIT 39.7 % (36.0-47.0); HEMOGLOBIN 12.8 g/dL (12.0-15.5); LYMPHOCYTES % (AUTO) 23.4 % (13-45); MEAN CORPUSCULAR HEMOGLOBIN 27.5 pg (27.0-33.4); MEAN CORPUSCULAR HGB CONC 32.2 g/dL (32.0-36.0); MEAN CORPUSCULAR VOLUME 86 fl (80-97); MONOCYTES % (AUTO) 6.9 % (3-13); PLATELET COUNT 209 10^3/uL (150-450); RED BLOOD COUNT 4.64 10^6/uL (3.72-5.28); RED CELL DISTRIBUTION WIDTH 16.3 % (11.5-14.0); SEGMENTED NEUTROPHILS % (AUTO) 68.4 % (42-78); TOTAL CELLS COUNTED % (AUTO) 100 %; WHITE BLOOD COUNT 10.6 10^3/uL (4.0-10.5)
[2017-06-04 16:47] LABS: ALANINE AMINOTRANSFERASE 38 U/L (9-52); ALBUMIN 4.3 g/dL (3.5-5.0); ALKALINE PHOSPHATASE 90 U/L (38-126); ANION GAP 11 (5-19); ASPARTATE AMINO TRANSFERASE 22 U/L (14-36); BILIRUBIN,DIRECT 0.3 mg/dL (0.0-0.4); BILIRUBIN,TOTAL 0.3 mg/dL (0.2-1.3); BLOOD UREA NITROGEN 16 mg/dL (7-20); CALCIUM 9.9 mg/dL (8.4-10.2); CARBON DIOXIDE 29 mmol/L (22-30); CHLORIDE 104 mmol/L (98-107); GLUCOSE 88 mg/dL (75-110); SODIUM 143.7 mmol/L (137-145); TOTAL PROTEIN 7.3 g/dL (6.3-8.2)
[2017-06-04] MEDS ORDERED: HYDROMORPHONE HCL INJ/PF 2 MG/ML AMPULE IM ONE ×2 (17:27→20:05)
[2017-06-04] MEDS ORDERED: HYDROMORPHONE HCL INJ/PF 2 MG/ML AMPULE IV ONE (18:17)
[2017-06-04] MEDS ORDERED: ONDANSETRON HCL INJ/PF 4 MG/2 ML SDV IV ONE (18:17)
[2017-06-04] MEDS ORDERED: ONDANSETRON 4 MG TAB.RAPDIS PO ONE (20:06)
--- NOTE | 2017-06-04 20:54 | RADIOLOGY REPORT (SQ) ---
EXAM DESCRIPTION: CT CHEST WITHOUT; CT ABD/PELVIS NO ORAL OR IV COMPLETED DATE/TIME: 06/04/2017 8:33 pm REASON FOR STUDY: abd, back pain, into groin COMPARISON: None. TECHNIQUE: CT scan of the chest performed without intravenous contrast using helical scanning techni que. Images reviewed with lung, soft tissue and bone windows. Reconstructed coronal and sagittal MPR images reviewed. All images stored on PACS. All CT scanners at this facility use dose modulation, iterative reconstruction, and/or weight based d osing when appropriate to reduce radiation dose to as low as reasonably achievable (ALARA). [facility]: Dose Right [facility]: CareDose [facility]: Dose Right [facility]: LumiGrow [facility]: Radius RADIATION DOSE: CT Rad equipment meets quality standard of care and radiation dose reduction techniq ues were employed. CTDIvol: 15.1 mGy. DLP: 954 mGy-cm. mGy. LIMITATIONS: None. FINDINGS: AXILLAE: No adenopathy. CHEST WALL: No masses. No subcutaneous air. LUNGS: No nodules or masses. No pneumothorax. No infiltrates. PLEURA: No effusions. There are a few left anterior pleural calcifications. THYROID: No masses or significant asymmetry. HILAR AND MEDIASTINAL STRUCTURES: No identified masses or abnormal nodes. AORTA AND GREAT VESSELS: No aneurysm. HEART: No pericardial effusion. HARDWARE AND LIFELINES: None. BONES: No acute finding. OTHER: No other significant finding. IMPRESSION: No acute findings. COMPARISON: None. TECHNIQUE: CT scan of the abdomen and pelvis performed without intravenous contrast and withoutoral contrast using helical scanning technique with dynamic intravenous contrast injection. Images review ed with lung, soft tissue and bone windows. Reconstructed coronal and sagittal MPR images reviewed. All images stored on PACS. All CT scanners at this facility use dose modulation, iterative reconstruction, and/or weight based d osing when appropriate to reduce radiation dose to as low as reasonably achievable (ALARA). [facility]: Dose Right [facility]: SureCare [facility]: Dose Right [facility]: Drifty 4D [facility]: Radius RADIATION DOSE: CT Rad equipment meets quality standard of care and radiation dose reduction techniq ues were employed. CTDIvol: 15.1 mGy. DLP: 954 mGy-cm.mGy. LIMITATIONS: None. FINDINGS: LIVER: Normal size. No masses. No dilated ducts. SPLEEN: Normal size. No focal lesions. PANCREAS: No masses. No significant calcifications. No adjacent inflammation or peripancreatic flui d collections. Pancreatic duct not dilated. GALLBLADDER: Surgically absent. ADRENAL GLANDS: No significant masses or asymmetry. RIGHT KIDNEY AND URETER: No solid masses. Assessment limited by lack of IV contrast. No significant c alcification. No hydronephrosis or hydroureter. LEFT KIDNEY AND URETER: No solid masses. Assessment limited by lack of IV contrast. No significant ca lcification. No hydronephrosis or hydroureter. AORTA AND VESSELS: No aneurysm. RETROPERITONEUM: No retroperitoneal adenopathy, hemorrhage or masses. APPENDIX: Normal. LARGE AND SMALL BOWEL: No dilatation. Colonic diverticulosis. No masses. No wall thickening. ABDOMINAL WALL: No hernia or masses. PERITONEAL CAVITY: No free air. No free fluid. No peritoneal implants or masses. PELVIS: No free fluid identified. Metallic scattered artifact limits evaluation. BONES: No acute findings. OTHER: Posterior lumbar fusion hardware and intraspinal nerve stimulator. Bilateral total hip arthro plasty. IMPRESSION: No acute findings. TECHNICAL DOCUMENTATION: JOB ID: [id number] Quality ID # [id number]: Final reports with documentation of one or more dose reduction techniques (e.g., Au tomated exposure control, adjustment of the mA and/or kV according to patient size, use of iterative reconstruction technique) 2010 [employer]- All Rights Reserved Reading location - IP/workstation name: [email or web address]
--- NOTE | 2017-06-04 20:54 | RADIOLOGY REPORT (SQ) ---
EXAM DESCRIPTION: CT CHEST WITHOUT; CT ABD/PELVIS NO ORAL OR IV COMPLETED DATE/TIME: 06/04/2017 8:33 pm REASON FOR STUDY: abd, back pain, into groin COMPARISON: None. TECHNIQUE: CT scan of the chest performed without intravenous contrast using helical scanning techni que. Images reviewed with lung, soft tissue and bone windows. Reconstructed coronal and sagittal MPR images reviewed. All images stored on PACS. All CT scanners at this facility use dose modulation, iterative reconstruction, and/or weight based d osing when appropriate to reduce radiation dose to as low as reasonably achievable (ALARA). [facility]: Dose Right [facility]: CareDose [facility]: Dose Right [facility]: PromoteU [facility]: [place] RADIATION DOSE: CT Rad equipment meets quality standard of care and radiation dose reduction techniq ues were employed. CTDIvol: 15.1 mGy. DLP: 954 mGy-cm. mGy. LIMITATIONS: None. FINDINGS: AXILLAE: No adenopathy. CHEST WALL: No masses. No subcutaneous air. LUNGS: No nodules or masses. No pneumothorax. No infiltrates. PLEURA: No effusions. There are a few left anterior pleural calcifications. THYROID: No masses or significant asymmetry. HILAR AND MEDIASTINAL STRUCTURES: No identified masses or abnormal nodes. AORTA AND GREAT VESSELS: No aneurysm. HEART: No pericardial effusion. HARDWARE AND LIFELINES: None. BONES: No acute finding. OTHER: No other significant finding. IMPRESSION: No acute findings. COMPARISON: None. TECHNIQUE: CT scan of the abdomen and pelvis performed without intravenous contrast and withoutoral contrast using helical scanning technique with dynamic intravenous contrast injection. Images review ed with lung, soft tissue and bone windows. Reconstructed coronal and sagittal MPR images reviewed. All images stored on PACS. All CT scanners at this facility use dose modulation, iterative reconstruction, and/or weight based d osing when appropriate to reduce radiation dose to as low as reasonably achievable (ALARA). [facility]: Dose Right [facility]: SureCare [facility]: Dose Right [facility]: Freeze Tag 4D [facility]: [place] RADIATION DOSE: CT Rad equipment meets quality standard of care and radiation dose reduction techniq ues were employed. CTDIvol: 15.1 mGy. DLP: 954 mGy-cm.mGy. LIMITATIONS: None. FINDINGS: LIVER: Normal size. No masses. No dilated ducts. SPLEEN: Normal size. No focal lesions. PANCREAS: No masses. No significant calcifications. No adjacent inflammation or peripancreatic flui d collections. Pancreatic duct not dilated. GALLBLADDER: Surgically absent. ADRENAL GLANDS: No significant masses or asymmetry. RIGHT KIDNEY AND URETER: No solid masses. Assessment limited by lack of IV contrast. No significant c alcification. No hydronephrosis or hydroureter. LEFT KIDNEY AND URETER: No solid masses. Assessment limited by lack of IV contrast. No significant ca lcification. No hydronephrosis or hydroureter. AORTA AND VESSELS: No aneurysm. RETROPERITONEUM: No retroperitoneal adenopathy, hemorrhage or masses. APPENDIX: Normal. LARGE AND SMALL BOWEL: No dilatation. Colonic diverticulosis. No masses. No wall thickening. ABDOMINAL WALL: No hernia or masses. PERITONEAL CAVITY: No free air. No free fluid. No peritoneal implants or masses. PELVIS: No free fluid identified. Metallic scattered artifact limits evaluation. BONES: No acute findings. OTHER: Posterior lumbar fusion hardware and intraspinal nerve stimulator. Bilateral total hip arthro plasty. IMPRESSION: No acute findings. TECHNICAL DOCUMENTATION: JOB ID: [id number] Quality ID # [id number]: Final reports with documentation of one or more dose reduction techniques (e.g., Au tomated exposure control, adjustment of the mA and/or kV according to patient size, use of iterative reconstruction technique) 2010 [employer]- All Rights Reserved Reading location - IP/workstation name: [email or web address]
[2017-06-04 21:00] VITALS: BP 149/69
== END 2017-06-04 21:10 | disposition home or self-care (01) ==
LOC: ER 14:21
DX: M54.5 Low back pain (principal); M54.9 Dorsalgia, unspecified; G89.29 Other chronic pain; M25.551 Pain in right hip; M25.552 Pain in left hip; R10.2 Pelvic and perineal pain; R10.10 Upper abdominal pain, unspecified; Z96.643 Presence of artificial hip joint, bilateral; Z98.890 Other specified postprocedural states; Z96.653 Presence of artificial knee joint, bilateral; Z79.899 Other long term (current) drug therapy; I10 Essential (primary) hypertension
CPT/HCPCS: 99284; 96372; 36415; 83690; 85025; 80053; 81001; 71250; 74176; A9270; J1170; S0119

== ENCOUNTER 2017-10-08 09:07 | Day surgery (SDC) | payer MEDICARE, OTHER ==
[~2017-10-08 09:07] MED LIST changes: -CEFAZOLIN 1 GM/D5W RTU 0 GM/0 ML RTUPB IV ONE; +CHONDR SU A NA/HYALUR INTRAOC KIT (SURGICARE) ONE; -DIPHENHYDRAMINE HCL 50 MG/ML VIAL ONE; +EPINEPHRINE INJ/PF 1 MG/1 ML AMPULE ONE; -FENTANYL CITRATE INJ/PF 100 MCG/2 ML AMPUL ONE; +KETOROLAC TROMETHAMINE 0.45% 4 DROP/0.4 ML DROPERETTE OD PRN; -KETOROLAC TROMETHAMINE 60 MG/2 ML SDV ONE; +LIDOCAINE 1% INJ-PF (10 MG/ML) 30 ML SDV ONE; -LIDOCAINE 2% INJ (20 MG/ML) 20 ML MDV ONE; -LIDOCAINE 2% INJ-PF (20 MG/ML) 10 ML AMPUL ONE; -MIDAZOLAM 2 MG/2 ML INJ ONE; -PROPOFOL INJ 200 MG/20 ML VIAL IV ONE
[2017-10-08] MEDS: TETRACAINE HCL 0.5% OPH SOLN 2 ML OD PRN ×3 (10:07→10:39)
[2017-10-08] MEDS: TROPICAMIDE 1% OPH SOLN 3 ML OD PRN ×3 (10:07→10:25)
[2017-10-08] MEDS: CYCLOPENTOLATE 0.2%/PHENYLEPHRINE 1% OPH SOLN 2 ML OD PRN ×3 (10:07→10:25)
[2017-10-08] MEDS: BESIFLOXACIN HCL 0.6% OPH SUSP 5 ML BOTTLE OD PRN ×3 (10:08→10:12)
[2017-10-08] MEDS ORDERED: MIDAZOLAM 2 MG/2 ML INJ ONE (10:12)
[2017-10-08] MEDS ORDERED: FENTANYL CITRATE INJ/PF 100 MCG/2 ML AMPUL ONE (10:13)
--- NOTE | 2017-10-08 20:41 | [facility] OPERATIVE REPORT E ---
[facility] Operative Report NAME: ADRI GARCIA AGE: 67Y DATE OF SURGERY: 10/08/2017 ROOM: PREOPERATIVE DIAGNOSIS: CATARACT, RIGHT EYE. POSTOPERATIVE DIAGNOSIS: CATARACT, RIGHT EYE. OPERATION: Cataract extraction with insertion of an IOL of the right eye. SURGEON: MIRYAM CRUZ M.D. ANESTHESIA: Topical. PROCEDURE: After obtaining appropriate consent, the patient's right eye was prepped and draped in sterile fashion as well as the surgeon in a sterile manner and cataract surgery was started. First a paracentesis blade was used to make a side-port incision. Viscoelastic was used to inflate the anterior chamber. Next a 2.4 mm incision was made with a 2.4 mm blade, clear corneal temporally. A continuous capsulorrhexis was made using a cystotome and Utrata forceps. Following this hydrodissection was carried out to make the lens fully loose and mobile and it was rotated 90 degrees. Following this, a [id number]-[id number] technique was used to phacoemulsify the lens with a CDE of 5.29. The remaining cortex was removed with irrigation/aspiration. Provisc was instilled into the capsular bag to inflate the bag. A SN60WF, 22.0 diopter lens was placed. The remaining viscoelastic material was removed with irrigation/aspiration. Following this, the incision was found to be watertight. Besivance was instilled into the eye and a protective shield was placed over the eye. The patient returned to the postoperative recovery in stable condition. DICTATING PHYSICIAN: MIRYAM CRUZ M.D. [id number] PHY#: [id number] ID: [id number] JOB#: [id number] ACCT: [id number] cc:MIRYAM CRUZ M.D. >
--- NOTE | 2017-10-08 20:46 | DISCHARGE SUMMARY E ---
Discharge Summary NAME: ADRI GARCIA : 1950 AGE: 67Y ADMITTED: 10/08/2017 DISCHARGED: 10/08/2017 FINAL DIAGNOSIS: Cataract, right eye. HOSPITAL COURSE: This is a 67-year-old female who underwent cataract extraction of the right eye. She underwent surgery because she was having difficulty seeing words on the television. DISCHARGE INSTRUCTIONS: She should be on a regular diet. No bending at her waist, no heavy lifting. She should use her Besivance, Ilevro and Durezol at 3:00 p.m. and 8:00 p.m. Sleep with a rigid shield. I will see her for a 1-day postoperative tomorrow. DICTATING PHYSICIAN: MIRYAM CRUZ M.D. [id number] PHY#: [id number] ID: [id number] JOB#: [id number] ACCT: [id number] cc:MIRYAM CRUZ M.D. >
== END 2017-10-08 11:40 | disposition home or self-care (01) ==
LOC: SC 09:07
PROVIDERS: ATTEND Internal Medicine
DX: H25.813 Combined forms of age-related cataract, bilateral (principal); H04.123 Dry eye syndrome of bilateral lacrimal glands; H01.002 Unspecified blepharitis right lower eyelid; H01.005 Unspecified blepharitis left lower eyelid; I10 Essential (primary) hypertension; E78.00 Pure hypercholesterolemia, unspecified; M19.90 Unspecified osteoarthritis, unspecified site; Z87.891 Personal history of nicotine dependence; Z88.5 Allergy status to narcotic agent; Z79.899 Other long term (current) drug therapy
CPT/HCPCS: 66984; V2632; J2250; J3490 ×2; A9270; J0171; J3010; 142

== ENCOUNTER 2017-11-11 10:11 | Emergency (ER) | payer MEDICARE, OTHER ==
[2017-11-11 10:16] VITALS: BP 150/69
[2017-11-11] MEDS ORDERED: TETRACAINE HCL 0.5% OPH SOLN 4 ML OD ONE (10:38)
[2017-11-11] MEDS ORDERED: TOBRAMYCIN SULFATE/DEXAMETH OPH OINTMENT 3.5 GM OS ONE (10:46)
[2017-11-11] MEDS ORDERED: HYDROCODONE/ACETAMINOPHEN 5-325 MG TABLET PO ONE (10:47)
--- NOTE | 2017-11-11 10:53 | ER Document Report ---
ED Eye Complaint - General Chief Complaint: Eye Pain Stated Complaint: EYE PAIN Time Seen by Provider: 11/11/17 10:37 Information source: Patient Notes: Chief complaint: Right thigh pain History of complain:( obtained from----patient) 67 years old female with a history of right eye cataract surgery nearly a month ago, presents today with 2 day history of right eye pain and redness and tearing. Has not been taking any medications to the eyes. No fever chills or injuries. Onset: Gradual Duration: 2 days Severity: Moderate to severe Quality: Sharp Context: Unknown Exacerbating factor and relieving factors: Blinking REVIEW OF SYSTEMS: CONSTITUTIONAL : Denies fever, chills, or sweats. Denies recent illness. EENT: Denies eye, ear, throat, or mouth pain or symptoms. Denies nasal or sinus congestion or discharge. Denies throat, tongue, or mouth swelling or difficulty swallowing. CARDIOVASCULAR: Denies chest pain. Denies palpitations or racing or irregular heart beat. Denies ankle edema. RESPIRATORY: Denies cough, cold, or chest congestion. Denies shortness of breath, difficulty breathing, or wheezing. GASTROINTESTINAL: Denies distention. Denies nausea, vomiting, or diarrhea. Denies blood in vomitus, stools, or per rectum. Denies black, tarry stools. Denies constipation. GENITOURINARY: Denies difficulty urinating, painful urination, burning, frequency, blood in urine, or discharge. FEMALE GENITOURINARY: Denies vaginal bleeding, heavy or abnormal periods, irregular periods. Denies vaginal discharge or odor. MUSCULOSKELETAL: Denies back or neck pain or stiffness. Denies joint pain or swelling. SKIN: Denies rash, lesions or sores. HEMATOLOGIC : Denies easy bruising or bleeding. LYMPHATIC: Denies swollen, enlarged glands. NEUROLOGICAL: Denies confusion or altered mental status. Denies passing out or loss of consciousness. Denies dizziness or lightheadedness. Denies headache. Denies weakness or paralysis or loss of use of either side. Denies problems with gait or speech. Denies sensory loss, numbness, or tingling. Denies seizures. PSYCHIATRIC: Denies anxiety or stress. Denies depression, suicidal ideation, or homicidal ideation. ALL OTHER SYSTEMS REVIEWED AND NEGATIVE. PHYSICAL EXAMINATION: GENERAL: Well-appearing, well-nourished and in no acute distress. HEAD: Atraumatic, normocephalic. EYES: Examination of the right eye shows erythema and tearing. Surgical scar on the right side 9:00 noted. Well-healed. Pupils were equal reactive to light. No hyphema noted. No iritis. No redness in the right is noted. Left eye examination is normal ENT: Nares patent, oropharynx clear without exudates. Moist mucous membranes. NECK: Normal range of motion, supple without lymphadenopathy LUNGS: Breath sounds clear to auscultation bilaterally and equal. No wheezes rales or rhonchi. HEART: Regular rate and rhythm without murmurs ABDOMEN: Soft, nontender, nondistended abdomen. No guarding, no rebound. No masses appreciated. Examination of genitals-deferred Musculoskeletal: Normal range of motion, no pitting or edema. No cyanosis. NEUROLOGICAL: Cranial nerves grossly intact. Normal speech, normal gait. Normal sensory, motor exams PSYCH: Normal mood, normal affect. SKIN: Warm, Dry, normal turgor, no rashes or lesions noted. Dictation was performed using [employer] voice recognition software TRAVEL OUTSIDE OF THE [place] IN LAST 30 DAYS: No - HPI Notes: Dictated - Related Data Allergies/Adverse Reactions: morphine [Morphine] Allergy (Severe, Verified 11/11/17 10:12) blisters at insertion site of iv,severe nausea oxycodone [From Percocet] Allergy (Mild, Verified 11/11/17 10:12) Generalized Itching aspirin [Aspirin] Adverse Reaction (Intermediate, Verified 11/11/17 10:12) abdominal pain Past Medical History - Social History Smoking Status: Never Smoker Frequency of alcohol use: Rare Drug Abuse: None Lives with: Family Family History: Reviewed & Not Pertinent Patient has suicidal ideation: No Patient has homicidal ideation: No - Past Medical History Cardiac Medical History: Reports: Hx Hypercholesterolemia, Hx Hypertension - medicated Denies: Hx Heart Attack Pulmonary Medical History: Reports: Hx Pneumonia Denies: Hx Asthma, Hx Bronchitis, Hx COPD, Hx Tuberculosis Neurological Medical History: Reports: Hx Migraine. Denies: Hx Cerebrovascular Accident, Hx Seizures Renal/ Medical History: Denies: Hx Peritoneal Dialysis GI Medical History: Reports: Hx Gastroesophageal Reflux Disease, Hx Hiatal Hernia. Denies: Hx Hepatitis, Hx Ulcer Musculoskeletal Medical History: Reports Hx Arthritis Psychiatric Medical History: Denies: Hx Depression Infectious Medical History: Denies: Hx Hepatitis Past Surgical History: Reports: Hx Appendectomy, Hx Cholecystectomy, Hx Genitourinary Surgery - Bladder tact, Hx Hysterectomy, Hx Neurologic Surgery - Back, Hx Orthopedic Surgery - Bilat foot; Bilat shoulder; Bilat knee; Bilat hip , Hx Tonsillectomy, Hx Tubal Ligation. Denies: Hx Mastectomy, Hx Open Heart Surgery, Hx Pacemaker - Immunizations Hx Diphtheria, Pertussis, Tetanus Vaccination: No Hx Pneumococcal Vaccination: 12/24/12 Review of Systems - Review of Systems Notes: Dictated Physical Exam - Vital signs Vitals: Temp Pulse Resp BP Pulse Ox 98.2 F 71 14 150/69 H 98 11/11/17 10:15 11/11/17 10:15 11/11/17 10:15 11/11/17 10:15 11/11/17 10:15 - Notes Notes: Dictated Course - Vital Signs Vital signs: Temp Pulse Resp BP Pulse Ox 98.2 F 71 14 150/69 H 98 11/11/17 10:15 11/11/17 10:15 11/11/17 10:15 11/11/17 10:15 11/11/17 10:15 Discharge - Discharge Clinical Impression: Conjunctivitis Qualifiers: Conjunctivitis type: acute Acute conjunctivitis type: bacterial Laterality: right Qualified Code(s): H10.31 - Unspecified acute conjunctivitis, right eye Condition: Fair Disposition: HOME, SELF-CARE Instructions: Conjunctivitis ([facility]) Prescriptions: Hydrocodone/Acetaminophen [Hydrocodon-Acetaminophen 5-325] 1 each PO DAILY #20 tablet Tobramycin Sulf/Dexamethasone [Tobradex Eye Drops] 5 ml OP Q4 #1 drops.susp Referrals: BRANDEN CROWELL MD [Primary Care Provider] - Follow up as needed
== END 2017-11-11 11:10 | disposition home or self-care (01) ==
LOC: ER 10:11
DX: H10.31 Unspecified acute conjunctivitis, right eye (principal); H57.11 Ocular pain, right eye
CPT/HCPCS: 99283; J3490 ×2; A9270

== ENCOUNTER → 2017-11-17 | Outpatient (CLI) | payer MEDICARE, OTHER ==
[2017-11-17 13:37] LABS: C-REACTIVE PROTEIN 14.5 mg/L (<10.0); URIC ACID 4.4 mg/dL (2.5-7.5)
[2017-11-19 07:03] LABS: CYCLIC CITRUL PEPTIDE IGG/A AB 5 units (0-19)
== END ==
LOC: LAB 12:39
PROVIDERS: ATTEND Orthopaedic Surgery
DX: M79.645 Pain in left finger(s) (principal)
CPT/HCPCS: 36415; 84550; 85652; 86038; 86140; 86200; 86430

== ENCOUNTER → 2018-02-11 | Outpatient (CLI) | payer MEDICARE, OTHER ==
[2018-02-11 11:26] LABS: ABSOLUTE EOSINOPHILS # (AUTO) 0.1 10^3/uL (0.0-0.6); ABSOLUTE LYMPHOCYTES (AUTO) 2.1 10^3/uL (0.5-4.7); ABSOLUTE MONOCYTES (AUTO) 0.6 10^3/uL (0.1-1.4); ABSOLUTE NEUT (AUTO) 5.3 10^3/uL (1.7-8.2); BASOPHILS % (AUTO) 0.3 % (0-2); EOSINOPHILS % (AUTO) 1.1 % (0-6); HEMATOCRIT 39.9 % (36.0-47.0); HEMOGLOBIN 12.9 g/dL (12.0-15.5); LYMPHOCYTES % (AUTO) 26.2 % (13-45); MEAN CORPUSCULAR HEMOGLOBIN 26.8 pg (27.0-33.4); MEAN CORPUSCULAR HGB CONC 32.4 g/dL (32.0-36.0); MEAN CORPUSCULAR VOLUME 83 fl (80-97); MONOCYTES % (AUTO) 7.7 % (3-13); PLATELET COUNT 288 10^3/uL (150-450); RED BLOOD COUNT 4.81 10^6/uL (3.72-5.28); RED CELL DISTRIBUTION WIDTH 15.8 % (11.5-14.0); SEGMENTED NEUTROPHILS % (AUTO) 64.7 % (42-78); TOTAL CELLS COUNTED % (AUTO) 100 %; WHITE BLOOD COUNT 8.1 10^3/uL (4.0-10.5)
[2018-02-11 11:55] LABS: ALANINE AMINOTRANSFERASE 30 U/L (9-52); ALBUMIN 4.3 g/dL (3.5-5.0); ALKALINE PHOSPHATASE 100 U/L (38-126); ANION GAP 11 (5-19); ASPARTATE AMINO TRANSFERASE 29 U/L (14-36); BILIRUBIN,DIRECT 0.2 mg/dL (0.0-0.4); BILIRUBIN,TOTAL 0.3 mg/dL (0.2-1.3); BLOOD UREA NITROGEN 12 mg/dL (7-20); CALCIUM 10.1 mg/dL (8.4-10.2); CARBON DIOXIDE 29 mmol/L (22-30); CHLORIDE 105 mmol/L (98-107); CHOLESTEROL 123.85 mg/dL (0-200); GLUCOSE 109 mg/dL (75-110); POTASSIUM 4.7 mmol/L (3.6-5.0); SODIUM 144.9 mmol/L (137-145); TOTAL PROTEIN 7.3 g/dL (6.3-8.2); TRIGLYCERIDES 95 mg/dL (<150); URIC ACID 4.4 mg/dL (2.5-7.5)
[2018-02-11 12:06] LABS: FREE T4 (FREE THYROXINE) 1.04 ng/dL (0.78-2.19)
[2018-02-11 12:12] LABS: DIRECT LDL 83 mg/dL (<100)
[2018-02-11 12:20] LABS: THYROID STIMULATING HORMONE 0.68 uIU/mL (0.47-4.68)
== END ==
LOC: OD 10:22
PROVIDERS: ATTEND Internal Medicine
DX: I10 Essential (primary) hypertension (principal)
CPT/HCPCS: 36415; 80053; 80061; 84439; 84443; 84550; 85025

== ENCOUNTER → 2018-03-04 | Outpatient (CLI) | payer MEDICARE, OTHER ==
--- NOTE | 2018-03-04 12:10 | WOMENS IMAGING REPORT ---
EXAM DESCRIPTION: 3D SCREENING MAMMO BILAT COMPLETED DATE/TIME: 03/04/2018 10:56 am REASON FOR STUDY: ROUTINE SCREENING MAMMOGRAM Z12.31 Z12.31 ENCNTR SCREEN MAMMOGRAM FOR MALIGNANT N EOPLASM OF [place]YLER COMPARISON: [id number] TECHNIQUE: Standard craniocaudal and mediolateral oblique views of each breast recorded using digita l acquisition and breast tomosynthesis. LIMITATIONS: None. FINDINGS: Findings present which are benign by mammographic criteria. No suspicious masses, calcifi cations or architectural distortion. Pertinent benign findings: Stable calcifications. Read with the assistance of CAD. .[facility] - R2 Cenova Version 1.3 .[facility] - R2 Cenova Version 1.3 .[facility] - R2 Cenova Version 2.4 .[facility] - R2 Cenova Version 2.4 .[facility] - R2 Ssis [employer] Developer Version 9.2 Benign mammographic findings may include one or more of the following: Smooth masses, popcorn/rim/co arse calcifications, asymmetries, post-procedure changes, and lesions with long-standing stability. IMPRESSION: BENIGN MAMMOGRAPHIC FINDINGS. BIRADS 2 BREAST DENSITY: b. There are scattered areas of fibroglandular density. BIRAD: 2 BENIGN FINDING(S) RECOMMENDATION: RECOMMENDATION: ROUTINE SCREENING COMMENT: The patient has been notified of the results by letter per SA requirements. Additional no tification policies are in place for contacting patient with suspicious or incomplete findings. Quality ID #[id number]: The [employer] recommends an annual screening mammogram for women aged 40 years or over. This facility utilizes a reminder system to ensure that all patients receive reminder letters, and/or direct phone calls for appointments. This includes reminders for routine scr eening mammograms, diagnostic mammograms, or other Breast Imaging Interventions when appropriate. Th is patient will be placed in the appropriate reminder system. The [employer] (ACR) has developed recommendations for screening MRI of the breast s in certain patient populations, to be used in conjunction with mammography. Breast MRI surveillanc e may be appropriate for women with more than 20% lifetime risk of developing breast cancer as deter mined by genetic testing, significant family history of the disease, or history of mantle radiation f or Hodgkins Disease. ACR Practice Guidelines 2008. DBT Technology DBT is a type of tomographic mammography. With conventional mammography, overlapping breast tissue ma y make lesions difficult to detect, even with good compression. DBT uses an x-ray tube that rotates a round the breast, taking images at different angles. These images are then combined to create thin sl ices of the breast that the radiologist can view as a 3D reconstruction. The [employer] unit can perform full-field digital mammograms (2D imaging); or DBT (3D imaging); or both, in a combination mode that quickly performs both the mammogram and the tomosynthesis scan while the breast is still compressed. PQRS 6045F: Fluoroscopic imaging is not utilized for breast tomosynthesis. TECHNICAL DOCUMENTATION: FINDING NUMBER: (1) ASSESSMENT: (1) JOB ID: [id number] [employer]- All Rights Reserved Reading location - IP/workstation name: [email or web address]
== END ==
LOC: WI 10:43
PROVIDERS: ATTEND Obstetrics & Gynecology Gynecology
DX: Z12.31 Encounter for screening mammogram for malignant neoplasm of breast (principal)
CPT/HCPCS: 77063; 77067

== ENCOUNTER 2018-04-07 04:51 | Emergency (ER) | payer MEDICARE, OTHER ==
[2018-04-07] MEDS ORDERED: ONDANSETRON HCL INJ/PF 4 MG/2 ML SDV IV ONE (05:12)
[2018-04-07] MEDS ORDERED: NORMAL SALINE 1000 ML 1,000 ML IV ONE (05:12)
--- NOTE | 2018-04-07 05:13 | ER Document Report ---
ED Medical Screen (RME) - General Chief Complaint: Nausea/Vomiting Stated Complaint: NAUSEA/VOMITING Time Seen by Provider: 04/07/18 05:07 Primary Care Provider: JOSUE CERVANTES MD [Primary Care Provider] - Follow up as needed Notes: 67-year-old female with chief complaint of vomiting multiple times, multiple episodes of diarrhea, and generalized abdominal pain that began at 9 PM. Denies fever, chest pain, difficulty breathing. History includes hysterectomy, appendectomy, irritable bowel, and Costilla use for back pain as needed. TRAVEL OUTSIDE OF THE [place] IN LAST 30 DAYS: No - Related Data Allergies/Adverse Reactions: morphine [Morphine] Allergy (Severe, Verified 11/11/17 10:12) blisters at insertion site of iv,severe nausea oxycodone [From Percocet] Allergy (Mild, Verified 11/11/17 10:12) Generalized Itching aspirin [Aspirin] Adverse Reaction (Intermediate, Verified 11/11/17 10:12) abdominal pain Past Medical History - Past Medical History Cardiac Medical History: Reports: Hx Hypercholesterolemia, Hx Hypertension - medicated Denies: Hx Heart Attack Pulmonary Medical History: Reports: Hx Pneumonia Denies: Hx Asthma, Hx Bronchitis, Hx COPD, Hx Tuberculosis Neurological Medical History: Reports: Hx Migraine. Denies: Hx Cerebrovascular Accident, Hx Seizures Renal/ Medical History: Denies: Hx Peritoneal Dialysis GI Medical History: Reports: Hx Gastroesophageal Reflux Disease, Hx Hiatal Hernia. Denies: Hx Hepatitis, Hx Ulcer Musculoskeltal Medical History: Reports Hx Arthritis Psychiatric Medical History: Denies: Hx Depression Infectious Medical History: Denies: Hx Hepatitis Past Surgical History: Reports: Hx Appendectomy, Hx Cholecystectomy, Hx G enitourinary Surgery - Bladder tact, Hx Hysterectomy, Hx Neurologic Surgery - Back, Hx Orthopedic Surgery - Bilat foot; Bilat shoulder; Bilat knee; Bilat hip, Hx Tonsillectomy, Hx Tubal Ligation. Denies: Hx Mastectomy, Hx Open Heart Surgery, Hx Pacemaker - Immunizations Hx Diphtheria, Pertussis, Tetanus Vaccination: No History of Influenza Vaccine for 11/2016 - 04/2017 Season: Yes Influenza Administration Date for 11/2016 - 04/2017 Season: 12/24/16 Physical Exam - Vital signs Vitals: Temp Pulse Resp BP Pulse Ox 98.7 F 85 14 139/70 H 100 04/07/18 04:52 04/07/18 04:52 04/07/18 04:52 04/07/18 04:52 04/07/18 04:52 - Abdominal Tenderness: Tender - Generalized abdominal tenderness, slightly worse in the general upper abdomen, nonspecific, no guarding Course - Vital Signs Vital signs: Temp Pulse Resp BP Pulse Ox 98.7 F 85 14 139/70 H 100 04/07/18 04:52 04/07/18 04:52 04/07/18 04:52 04/07/18 04:52 04/07/18 04:52 Doctor's Discharge - Discharge Referrals: JOSUE CERVANTES MD [Primary Care Provider] - Follow up as needed
[2018-04-07 05:53] LABS: ABSOLUTE BASOPHILS # (AUTO) 0.1 10^3/uL (0.0-0.2); ABSOLUTE LYMPHOCYTES (AUTO) 0.8 10^3/uL (0.5-4.7); ABSOLUTE MONOCYTES (AUTO) 0.7 10^3/uL (0.1-1.4); ABSOLUTE NEUT (AUTO) 13.1 10^3/uL (1.7-8.2); BASOPHILS % (AUTO) 0.5 % (0-2); EOSINOPHILS % (AUTO) 0.2 % (0-6); HEMATOCRIT 42.1 % (36.0-47.0); HEMOGLOBIN 13.9 g/dL (12.0-15.5); LYMPHOCYTES % (AUTO) 5.6 % (13-45); MEAN CORPUSCULAR HEMOGLOBIN 27.1 pg (27.0-33.4); MEAN CORPUSCULAR HGB CONC 32.9 g/dL (32.0-36.0); MEAN CORPUSCULAR VOLUME 82 fl (80-97); MONOCYTES % (AUTO) 4.6 % (3-13); PLATELET COUNT 258 10^3/uL (150-450); RED BLOOD COUNT 5.12 10^6/uL (3.72-5.28); RED CELL DISTRIBUTION WIDTH 16.4 % (11.5-14.0); SEGMENTED NEUTROPHILS % (AUTO) 89.1 % (42-78); TOTAL CELLS COUNTED % (AUTO) 100 %; WHITE BLOOD COUNT 14.7 10^3/uL (4.0-10.5)
[2018-04-07 06:10] LABS: ALANINE AMINOTRANSFERASE 21 U/L (9-52); ALBUMIN 4.8 g/dL (3.5-5.0); ALKALINE PHOSPHATASE 109 U/L (38-126); ANION GAP 14 (5-19); ASPARTATE AMINO TRANSFERASE 21 U/L (14-36); BILIRUBIN,DIRECT 0.2 mg/dL (0.0-0.4); BILIRUBIN,TOTAL 0.5 mg/dL (0.2-1.3); BLOOD UREA NITROGEN 18 mg/dL (7-20); CALCIUM 9.8 mg/dL (8.4-10.2); CARBON DIOXIDE 27 mmol/L (22-30); CHLORIDE 105 mmol/L (98-107); GLUCOSE 130 mg/dL (75-110); LIPASE 57.5 U/L (23-300); POTASSIUM 4.3 mmol/L (3.6-5.0); SODIUM 145.5 mmol/L (137-145); TOTAL PROTEIN 7.9 g/dL (6.3-8.2)
[2018-04-07] MEDS ORDERED: DICYCLOMINE HCL INJ 20 MG/2 ML AMPULE IM ONE (06:46)
[2018-04-07] MEDS ORDERED: ACETAMINOPHEN 325 MG TABLET PO ONE (06:47)
[2018-04-07] MEDS ORDERED: PROMETHAZINE HCL INJ 25 MG/1 ML VIAL IV ONE (06:47)
--- NOTE | 2018-04-07 06:51 | ER Document Report ---
ED General - General Chief Complaint: Nausea/Vomiting Stated Complaint: NAUSEA/VOMITING Time Seen by Provider: 04/07/18 05:07 Primary Care Provider: JOSUE CERVANTES MD [Primary Care Provider] - Follow up as needed TRAVEL OUTSIDE OF THE [place] IN LAST 30 DAYS: No - HPI Notes: Patient is a 67-year-old female that presents to the emergency department for chief complaint of nausea vomiting and abdominal pain. Patient reports around 9 PM last night she started having vomiting and diarrhea. She states that she has had on comfortable amounts of both since onset. She reports intermittent abdominal cramping that is worse in the left upper quadrant. The cramping is intermittent with no aggravating or relieving factors. She has not taken any medication at home. She denies eating any new foods or having a sick contacts. She denies being on any antibiotic medications. Patient denies any fevers, chills, chest pain, shortness of breath and syncope. Past Medical History: IBS Past Surgical History: Hysterectomy, appendectomy Social History: Denies drugs alcohol and tobacco Family History: Reviewed and noncontributory for presenting illness Allergies: Reviewed, see documented allergy list. REVIEW OF SYSTEMS: CONSTITUTIONAL : No fever No chills No diaphoresis No recent illness EENT: No vision changes No congestion No sore throat CARDIOVASCULAR: No chest pain No palpitations RESPIRATORY: No shortness of breath No cough No difficulty breathing GASTROINTESTINAL: abdominal pain nausea vomiting diarrhea GENITOURINARY: No dysuria No hematuria No difficulty urinating MUSCULOSKELETAL: No back pain No leg pain No arm pain SKIN: No rashes No lesions LYMPHATIC: No swollen, enlarged glands. NEUROLOGICAL: No lightheadedness No headache No weakness No paresthesias PSYCHIATRIC: No anxiety No depression PHYSICAL EXAMINATION: Vital signs reviewed, nursing noted reviewed. GENERAL: Ill-appearing, well-nourished and in no acute distress. HEAD: Atraumatic, normocephalic. EYES: Eyes appear normal, extraocular movements intact, sclera anicteric, conjunctiva are normal. ENT: nares patent, oropharynx clear without exudates. Moist mucous membranes. NECK: Normal range of motion, supple without lymphadenopathy LUNGS: Breath sounds clear to auscultation bilaterally and equal. No wheezes rales or rhonchi. HEART: Regular rate and rhythm without murmurs ABDOMEN: Soft, mild diffuse tenderness, normoactive bowel sounds. No rebound, guarding, or rigidity. No masses appreciated. EXTREMITIES: Nontender, good range of motion, no pitting or edema. NEUROLOGICAL: No focal neurological deficits. Moves all extremities spontaneously Motor and sensory grossly intact on exam. PSYCH: Normal mood, normal affect. SKIN: Warm, Dry, normal turgor, no rashes or lesions noted on exposed skin - Related Data Allergies/Adverse Reactions: morphine [Morphine] Allergy (Severe, Verified 11/11/17 10:12) blisters at insertion site of iv,severe nausea oxycodone [From Percocet] Allergy (Mild, Verified 11/11/17 10:12) Generalized Itching aspirin [Aspirin] Adverse Reaction (Intermediate, Verified 11/11/17 10:12) abdominal pain Past Medical History - Social History Smoking Status: Never Smoker Chew tobacco use (# tins/day): No Frequency of alcohol use: None Drug Abuse: None Family History: Reviewed & Not Pertinent Patient has suicidal ideation: No Patient has homicidal ideation: No - Past Medical History Cardiac Medical History: Reports: Hx Hypercholesterolemia, Hx Hypertension - medicated Denies: Hx Heart Attack Pulmonary Medical History: Reports: Hx Pneumonia Denies: Hx Asthma, Hx Bronchitis, Hx COPD, Hx Tuberculosis Neurological Medical History: Reports: Hx Migraine. Denies: Hx Cerebrovascular Accident, Hx Seizures Renal/ Medical History: Denies: Hx Peritoneal Dialysis GI Medical History: Reports: Hx Gastroesophageal Reflux Disease, Hx Hiatal Hernia. Denies: Hx Hepatitis, Hx Ulcer Musculoskeletal Medical History: Reports Hx Arthritis Psychiatric Medical History: Denies: Hx Depression Infectious Medical History: Denies: Hx Hepatitis Past Surgical History: Reports: Hx Appendectomy, Hx Cholecystectomy, Hx Genitourinary Surgery - Bladder tact, Hx Hysterectomy, Hx Neurologic Surgery - Back, Hx Orthopedic Surgery - Bilat foot; Bilat shoulder; Bilat knee; Bilat hip, Hx Tonsillectomy, Hx Tubal Ligation. Denies: Hx Mastectomy, Hx Open Heart Surgery, Hx Pacemaker - Immunizations Hx Diphtheria, Pertussis, Tetanus Vaccination: No Hx Pneumococcal Vaccination: 12/24/12 Physical Exam - Vital signs Vitals: Temp Pulse Resp BP Pulse Ox 98.7 F 85 14 139/70 H 100 04/07/18 04:52 04/07/18 04:52 04/07/18 04:52 04/07/18 04:52 04/07/18 04:52 Course - Re-evaluation Re-evalutation: 04/07/18 06:49 Vitals reviewed. Nursing notes reviewed. Patient is ill-appearing but hemodyn amically stable. She received Zofran which she states is not helping with her nausea. She denies having any active emesis or diarrhea since being in the emergency room. She will be ordered Tylenol, Bentyl, and Phenergan for further symptomatic management. Her lab work shows a mild leukocytosis but is otherwise unremarkable 04/07/18 08:07 Patient reevaluated and is still having abdominal pain. At this time she was ordered a dose of fentanyl. Patient has not yet received her CT scan because of issues with IV access. I placed an ultrasound-guided peripheral line and patient should be going to CT soon. 04/07/18 09:16 Patient reevaluated and has had some symptomatic improvement. Her CT scan shows fluid-filled colon consistent with her diarrheal illness there is no other acute abnormality found on CT. Patient has not had any diarrhea or vomiting in the ED. She will be discharged home with Zofran and Bentyl for symptomatic management. She will return for any new or worsening symptoms. She is stable at discharge. Laboratory 04/07/18 04/07/18 05:35 05:35 WBC 14.7 H RBC 5.12 Hgb 13.9 Hct 42.1 MCV 82 MCH 27.1 MCHC 32.9 RDW 16.4 H Plt Count 258 Seg Neutrophils % 89.1 H Lymphocytes % 5.6 L Monocytes % 4.6 Eosinophils % 0.2 Basophils % 0.5 Absolute Neutrophils 13.1 H Absolute Lymphocytes 0.8 Absolute Monocytes 0.7 Absolute Eosinophils 0.0 Absolute Basophils 0.1 Sodium 145.5 H Potassium 4.3 Chloride 105 Carbon Dioxide 27 Anion Gap 14 BUN 18 Creatinine 0.51 L Est GFR ( Amer) > 60 Est GFR (Non-Af Amer) > 60 Glucose 130 H Calcium 9.8 Total Bilirubin 0.5 Direct Bilirubin 0.2 Neonat Total Bilirubin Not Reportable Neonat Direct Bilirubin Not Reportable Neonat Indirect Bili Not Reportable AST 21 ALT 21 Alkaline Phosphatase 109 Total Protein 7.9 Albumin 4.8 Lipase 57.5 Abdomen/Pelvis CT 04/07/18 06:51 IMPRESSION: The small bowel and colon are diffusely fluid-filled to the rectum, suggestive of diarrheal illness. No other CT findings to explain left upper quadrant abdominal pain. - Vital Signs Vital signs: Temp Pulse Resp BP Pulse Ox 98.7 F 85 14 139/70 H 100 04/07/18 04:52 04/07/18 04:52 04/07/18 04:52 04/07/18 04:52 04/07/18 04:52 - Laboratory Result Diagrams: 04/07/18 05:35 04/07/18 05:35 Laboratory results interpreted by me: 04/07/18 04/07/18 05:35 05:35 WBC 14.7 H RDW 16.4 H Seg Neutrophils % 89.1 H Lymphocytes % 5.6 L Absolute Neutrophils 13.1 H Sodium 145.5 H Creatinine 0.51 L Glucose 130 H Procedures - Additional Procedures IV insertion Time performed: 08:08 Additional Procedures: IV insertion - Ultrasound assisted peripheral IV placement. Linear ultrasound probe used for visualization. A 20-gauge IV placed just proximal to left AC. Good blood flow and easy flush with normal saline. Secured in place with tape. Patient tolerated well. One attempt. Discharge - Discharge Clinical Impression: Abdominal pain Qualifiers: Abdominal location: generalized Qualified Code(s): R10.84 - Generalized abdominal pain Diarrhea Qualifiers: Diarrhea type: unspecified type Qualified Code(s): R19.7 - Diarrhea, unspecified Nausea and vomiting Qualifiers: Vomiting type: unspecified Vomiting Intractability: non-intractable Qualified Code(s): R11.2 - Nausea with vomiting, unspecified Condition: Stable Disposition: HOME, SELF-CARE Instructions: Abdominal Pain ([facility]), Gastroenteritis (adult) ([facility]) Additional Instructions: Please return to the emergency department if you have any worsening, or concern of your symptoms. Please return to the emergency department if you develop chest pain, difficulty breathing, severe abdominal pain, or ongoing vomiting. Please follow-up with your primary care physician in 2-3 days and any other recommended physicians. If prescribed, take all medications as directed. If you have any questions or concerns do not hesitate to return the emergency department for evaluation. Prescriptions: Dicyclomine HCl [Bentyl 20 mg Tablet] 20 mg PO TID #30 tablet Ondansetron [Zofran Odt 4 mg Tablet] 1 tab PO Q4H PRN #15 tab.rapdis PRN Reason: For Nausea/Vomiting Referrals: CERVANTES,JOSUE, MD [Primary Care Provider] - Follow up in 3-5 days
[2018-04-07] MEDS ORDERED: FENTANYL CITRATE INJ/PF 100 MCG/2 ML AMPUL IV ONE (08:06)
--- NOTE | 2018-04-07 09:07 | RADIOLOGY REPORT (SQ) ---
EXAM DESCRIPTION: CT ABD/PELVIS WITH IV ONLY COMPLETED DATE/TIME: 04/07/2018 8:49 am REASON FOR STUDY: LUQ pain COMPARISON: 06/04/2017 TECHNIQUE: CT scan of the abdomen and pelvis performed using helical scanning technique with dynamic intravenous contrast injection. No oral contrast. Images reviewed with lung, soft tissue, and bone windows. Reconstructed coronal and sagittal MPR images reviewed. Delayed images for evaluation of the urinary system also acquired. All images stored on PACS. All CT scanners at this facility use dose modulation, iterative reconstruction, and/or weight based d osing when appropriate to reduce radiation dose to as low as reasonably achievable (ALARA). [facility]: Dose Right [facility]: CareDose [facility]: Dose Right [facility]: Teradose 4D [facility]: Parachute CONTRAST TYPE AND DOSE: contrast/concentration: Isovue 350.00 mg/ml; Total Contrast Delivered: 100.0 ml; Total Saline Delivered: 70.0 ml RENAL FUNCTION: GFR > 60. RADIATION DOSE: CT Rad equipment meets quality standard of care and radiation dose reduction techniq ues were employed. CTDIvol: NaN - NaN mGy. DLP: 0 mGy-cm.. LIMITATIONS: None. FINDINGS: LOWER CHEST: Redemonstrated calcified pleural plaque of the left upper lobe, partially emily ged on this examination. No nodules or infiltrates. LIVER: Normal size. No masses. No dilated ducts. SPLEEN: Normal size. No focal lesions. PANCREAS: No masses. No significant calcifications. No adjacent inflammation or peripancreatic fluid collections. Pancreatic duct not dilated. GALLBLADDER: Surgically absent. ADRENAL GLANDS: No significant masses or asymmetry. RIGHT KIDNEY AND URETER: No solid masses. No significant calcifications. No hydronephrosis or hyd roureter. LEFT KIDNEY AND URETER: No solid masses. No significant calcifications. No hydronephrosis or hydr oureter. AORTA AND VESSELS: No aneurysm. No dissection. Renal arteries, SMA, celiac without stenosis. RETROPERITONEUM: No retroperitoneal adenopathy, hemorrhage or masses. BOWEL AND PERITONEAL CAVITY: No masses or inflammatory changes. No free fluid or peritoneal masses. The small bowel and colon are diffusely fluid-filled to the rectum. Occasional sigmoid diverticula. APPENDIX: Not clearly visualized. PELVIS: No mass. No free fluid. Normal bladder. ABDOMINAL WALL: No masses. No hernias. BONES: Status post bilateral hip total arthroplasty. Status post posterior lumbar fusion of L5-S1 OTHER: Spinal stimulator. IMPRESSION: The small bowel and colon are diffusely fluid-filled to the rectum, suggestive of diarrh eal illness. No other CT findings to explain left upper quadrant abdominal pain. TECHNICAL DOCUMENTATION: JOB ID: [id number] Quality ID # [id number]: Final reports with documentation of one or more dose reduction techniques (e.g., Au tomated exposure control, adjustment of the mA and/or kV according to patient size, use of iterative reconstruction technique) 2010 [employer]- All Rights Reserved Reading location - IP/workstation name: [email or web address]
[2018-04-07 09:44] VITALS: BP 128/85
== END 2018-04-07 09:44 | disposition home or self-care (01) ==
LOC: ER 04:51
DX: R10.84 Generalized abdominal pain (principal); R11.2 Nausea with vomiting, unspecified; R19.7 Diarrhea, unspecified; R10.9 Unspecified abdominal pain; R10.12 Left upper quadrant pain; I10 Essential (primary) hypertension; Z79.899 Other long term (current) drug therapy
CPT/HCPCS: 99284; 96372; 96361; 96374; 96375; 36415; 83690; 85025; 80053; 74177; A9270; J0500; J3010; J2550; J2405; J7030

== ENCOUNTER 2018-05-18 05:38 | Day surgery (SDC) | payer MEDICARE, OTHER ==
[2018-05-11 10:05] LABS: HEMATOCRIT 40.1 % (36.0-47.0); HEMOGLOBIN 13.3 g/dL (12.0-15.5); MEAN CORPUSCULAR HEMOGLOBIN 27.8 pg (27.0-33.4); MEAN CORPUSCULAR HGB CONC 33.2 g/dL (32.0-36.0); MEAN CORPUSCULAR VOLUME 84 fl (80-97); PLATELET COUNT 244 10^3/uL (150-450); RED BLOOD COUNT 4.79 10^6/uL (3.72-5.28); RED CELL DISTRIBUTION WIDTH 16.2 % (11.5-14.0); WHITE BLOOD COUNT 7.5 10^3/uL (4.0-10.5)
[2018-05-11 10:06] LABS: APPEARANCE,URINE CLEAR; BILIRUBIN,URINE NEGATIVE (NEGATIVE); COLOR,URINE YELLOW; GLUCOSE, URINE NEGATIVE (NEGATIVE); KETONES,URINE NEGATIVE (NEGATIVE); LEUKOCYTE ESTERASE,URINE NEGATIVE (NEGATIVE); NITRITE,URINE NEGATIVE (NEGATIVE); PROTEIN,URINE NEGATIVE (NEGATIVE); URINE SPECIFIC GRAVITY 1.013; UROBILINOGEN,URINE NEGATIVE mg/dL (<2.0)
[2018-05-11 10:33] LABS: ANION GAP 13 (5-19); BLOOD UREA NITROGEN 11 mg/dL (7-20); CALCIUM 10.3 mg/dL (8.4-10.2); CARBON DIOXIDE 29 mmol/L (22-30); CHLORIDE 102 mmol/L (98-107); GLUCOSE 103 mg/dL (75-110); POTASSIUM 4.3 mmol/L (3.6-5.0); SODIUM 143.5 mmol/L (137-145)
--- NOTE | 2018-05-11 10:37 | RADIOLOGY REPORT (SQ) ---
EXAM DESCRIPTION: CHEST PA/LATERAL COMPLETED DATE/TIME: 05/11/2018 10:13 am REASON FOR STUDY: PRE-OP COMPARISON: 04/23/2017 and 02/19/2017 EXAM PARAMETERS: NUMBER OF VIEWS: two views TECHNIQUE: Digital Frontal and Lateral radiographic views of the chest acquired. RADIATION DOSE: NA LIMITATIONS: none FINDINGS: LUNGS AND PLEURA: Stable small calcified nodule left mid lung zone. No acute pulmonary c onsolidation. No pneumothorax or pleural effusion. MEDIASTINUM AND HILAR STRUCTURES: No masses or contour abnormalities. HEART AND VASCULAR STRUCTURES: Heart normal size. No evidence for failure. BONES: The osseous structures are stable in appearance. HARDWARE: Neurostimulator catheter, unchanged finding. OTHER: No other significant finding. IMPRESSION: 1. No significant interval changes since the prior examination dated 04/23/2017. No acut e findings. TECHNICAL DOCUMENTATION: JOB ID: [id number] [employer]- All Rights Reserved Reading location - IP/workstation name: [email or web address]
--- NOTE | 2018-05-11 17:05 | EKG REPORT ---
SEVERITY:- ABNORMAL ECG - SINUS RHYTHM LEFT VENTRICULAR HYPERTROPHY : Confirmed by: Lovely Jack 11-May-2018 17:03:46
[~2018-05-18 05:38] MED LIST changes: +CEFAZOLIN 2 GM/D5W RTU 2 GM/50 ML RTUPB IV PRN; +CEFAZOLIN INJ 1 GM VIAL IV PRN; -CHONDR SU A NA/HYALUR INTRAOC KIT (SURGICARE) ONE; -EPINEPHRINE INJ/PF 1 MG/1 ML AMPULE ONE; -KETOROLAC TROMETHAMINE 0.45% 4 DROP/0.4 ML DROPERETTE OD PRN; +LACTATED RINGERS 1000 ML IV PRN; +LIDOCAINE 0.5% INJ-PF (5 MG/ML) 50 ML SDV SUBCUT PRN; -LIDOCAINE 1% INJ-PF (10 MG/ML) 30 ML SDV ONE
[2018-05-18] MEDS ORDERED: CEFAZOLIN 2 GM/D5W RTU 2 GM/50 ML RTUPB IV ONE (05:43)
[2018-05-18] MEDS ORDERED: FENTANYL CITRATE INJ/PF 100 MCG/2 ML AMPUL ONE ×2 (06:22→09:14)
[2018-05-18] MEDS ORDERED: PROPOFOL INJ 200 MG/20 ML VIAL IV ONE ×2 (06:23→09:14)
[2018-05-18] MEDS ORDERED: MIDAZOLAM 2 MG/2 ML INJ ONE (06:23)
[2018-05-18] MEDS ORDERED: LIDOCAINE 0.5% INJ-PF (5 MG/ML) 50 ML SDV ONE (06:24)
[2018-05-18] MEDS ORDERED: LIDOCAINE 1% INJ-PF (10 MG/ML) 30 ML SDV ONE (07:07)
[2018-05-18] MEDS ORDERED: ONDANSETRON HCL INJ/PF 4 MG/2 ML SDV IV PRN ×2 (07:59→09:00)
[2018-05-18] MEDS ORDERED: MEPERIDINE HCL/PF INJ 25 MG/1 ML DISP.SYRIN IV PRN (07:59)
[2018-05-18] MEDS ORDERED: PROMETHAZINE HCL INJ 25 MG/1 ML VIAL IV PRN ×2 (07:59)
[2018-05-18] MEDS ORDERED: DIPHENHYDRAMINE HCL 50 MG/ML VIAL IV PRN (07:59)
[2018-05-18] MEDS ORDERED: FENTANYL CITRATE INJ/PF 100 MCG/2 ML AMPUL IV PRN ×3 (07:59)
[2018-05-18] MEDS ORDERED: HYDROCODONE/ACETAMINOPHEN 5-325 MG TABLET PO PRN (09:00)
--- NOTE | 2018-05-18 09:02 | Operative Report ---
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 Patient noted deformity and pain at that point we discussed treatment options including operative versus nonoperative intervention after discussing risks and benefits and postoperative outcomes patient verbalized understanding consented for surgical procedure. Procedure In Detail: Patient was seen and evaluated in the preoperative holding area. The LEFT upper extremity was initialized and marked. Patient received 2g of Ancef IV for bacterial prophylaxis. Patient was taken back to the operative room where transferred to the operative table and placed under general anesthesia. Once they were adequately anesthetized a surgical team debriefing was performed ensuring all instrumentation was available, the surgical procedure was discussed with possible concerns reviewed. Digital block was performed with 10 cc of 1% lidocaine without epinephrine. The upper extremity was prepped with chlorhexidine and alcohol and draped in a sterile fashion. A timeout was done identifying correct patient, procedure and extremity everyone in attendance agree with this and verbalized no concerns. Digital tourniquet was placed. Transverse skin incision was made over the DIP joint. Flaps were elevated proximally and distally. Extensor tendon was then incised to expose the DIP joint. Osteophytes dorsally were removed. Eburnated cartilage was debrided until normal-appearing cancellus bone was exposed. Once adequately debrided proximally distally to optimize union of the arthrodesis wound was copiously ir rigated with normal saline. DIP joint was then reduced and a K wire for the micro Acutrak screw was placed along the distal pulp crossing the DIP joint. C-arm fluoroscopy AP and lateral were obtained confirming adequate compression of the arthrodesis site and alignment. The tract for the screw was then drilled and the appropriate size mini Acutrak screw was placed providing compression at the arthrodesis site. C- arm fluoroscopy was obtained confirming appropriate placement of the screw without disruption of the dorsal cortex. Adequate alignment on AP and lateral views were noted on radiographs. Wound was then copiously irrigated with normal saline. Any any remaining defect was then packed with residual cancellus bone. Extensor mechanism was closed with 3-0 Vicryl suture. Skin was closed with interrupted 4-0 nylon suture. Wound was dressed with Xeroform 4 x 4's and patient placed in a volar splint involving the DIP joint leaving the PIP joint free. Sponge counts, instrument counts, needle counts were correct. Patient was then awoken from anesthesia. Transferred from the operating room table to the operating room stretcher. There was no intraoperative complications patient tolerated procedure well stable to PACU. Postop plan: Patient will follow in the office in 2 weeks at which point we will obtain radiographs and set her up for occupational therapy to be fitted for a thermoplastic splint protecting the DIP joint.
[2018-05-18] MEDS: FENTANYL CITRATE INJ/PF 100 MCG/2 ML AMPUL ONE ×2 (09:13→09:18)
[2018-05-18] MEDS: HYDROMORPHONE HCL INJ/PF 2 MG/ML AMPULE ONE ×2 (09:21→10:10)
--- NOTE | 2018-05-18 09:26 | RADIOLOGY REPORT (SQ) ---
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 FLUOROSCOPY TIME: 1 minutes 34 seconds Spot images saved to PACS. TECHNIQUE: Intra-operative images acquired during surgical procedure to evaluate progress. NUMBER OF IMAGES: 4 LIMITATIONS: None. FINDINGS: Fluoroscopy was provided for intraoperative procedure. Please refer to the operative repo rt for further discussion. IMPRESSION: IMAGE(S) OBTAINED DURING PROCEDURE. COMMENT: Quality ID 145: Final reports for procedures using fluoroscopy that document radiation exp osure indices, or exposure time and number of fluorographic images (if radiation exposure indices are not available) Please consult full operative report of the attending physician for description of the procedure. TECHNICAL DOCUMENTATION: JOB ID: [id number] [employer]- All Rights Reserved Reading location - IP/workstation name: [email or web address]
--- NOTE | 2018-05-18 09:26 | RADIOLOGY REPORT (SQ) ---
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 FLUOROSCOPY TIME: 1 minutes 34 seconds Spot images saved to PACS. TECHNIQUE: Intra-operative images acquired during surgical procedure to evaluate progress. NUMBER OF IMAGES: 4 LIMITATIONS: None. FINDINGS: Fluoroscopy was provided for intraoperative procedure. Please refer to the operative repo rt for further discussion. IMPRESSION: IMAGE(S) OBTAINED DURING PROCEDURE. COMMENT: Quality ID 145: Final reports for procedures using fluoroscopy that document radiation exp osure indices, or exposure time and number of fluorographic images (if radiation exposure indices are not available) Please consult full operative report of the attending physician for description of the procedure. TECHNICAL DOCUMENTATION: JOB ID: [id number] [employer]- All Rights Reserved Reading location - IP/workstation name: [email or web address]
[2018-05-18] MEDS ORDERED: DIPHENHYDRAMINE HCL 50 MG/ML VIAL ONE (09:32)
[2018-05-18] MEDS ORDERED: KETOROLAC TROMETHAMINE INJ/PF 30 MG/1 ML SDV ONE (10:10)
[2018-05-18] MEDS ORDERED: ACETAMINOPHEN 1,000 MG/100 ML RTUPB IV ONE (10:10)
[2018-05-18] MEDS ORDERED: HYDROCODONE/ACETAMINOPHEN 5-325 MG TABLET ONE (10:53)
[2018-05-18 11:55] VITALS: BP 175/87
--- NOTE | 2018-05-20 16:49 | Discharge Summary ---
Discharge Summary (SDC) - Discharge Final Diagnosis: Left index distal interphalangeal arthritis Date of Surgery: 05/18/18 Discharge Date: 05/18/18 Condition: Good Treatment or Instructions: Schedule Follow Up w/ Dr. Miguel Lennon @ [facility] for Surgery to be seen in 10-14 days or as scheduled [place]: [place]: [place]: May remove dressing on postop day #3, keep incision covered and dry. Ice and elevate May begin finger range of motion attempting to make full fist. Stool softener of choice when on pain medication. USE OF HYAF-JWP-LEIFFUE IBUPROFEN: Ibuprofen (Advil, Nuprin, Medipren, Motrin IB) is a medication for fever and pain control. In addition, it has anti- inflammatory effects which may be beneficial, especially in the treatment of injuries. It's best to take ibuprofen with food. Persons with ulcer disease or allergy to aspirin should notify their physician of this before taking ibuprofen. Ibuprofen can be given every four to six hours, for a total of four doses daily. Age Pain or fever dose Antiinflammatory dose 6-8 yr 200 mg (1 tab) 200 mg (1 tab) 9-11 yr 200 mg (1 tab) 200-400 mg (1-2 tab) 11-14 yr 200-400 mg (1-2 tab) 400 mg (2 tab) 15-adult 400 mg (2 tab) 600 mg (3 tab) ORAL NARCOTIC MEDICATION: You have been given a prescription for pain control. This medication is a narcotic. It's best taken with food, as nausea can result if taken on an empty stomach. Don't operate machinery or drive within six hours of taking this medication. Do not combine this medicine with alcohol, or with any medication which can cause sedation (such as cold tablets or sleeping pills) unless you get permission from the physician. Narcotics tend to cause constipation. If possible, drink plenty of fluids and eat a diet high in fiber and fruits. Please be aware that prescription narcotics also have the potential for abuse. People become addicted to these medications because of the general sense of wellbeing that they induce. This feeling along with a significant reduction in tension, anxiety, and aggression provides a stimulating seductive quality to these drugs. Once your pain is under control, we encourage you to discard your unused narcotics. Prescriptions: Hydrocodone/Acetaminophen [[place] 5-325 mg Tablet] 1 tab PO Q6 PRN #25 tablet PRN Reason: Referrals: BRANDEN CROWELL MD [Primary Care Provider] - Discharge Diet: As Tolerated Respiratory Treatments at Home: Deep Breathing/Coughing Discharge Activity: No Lifting Over 10 Pounds, No Lifting/Push/Pulling Report the Following to Your Physician Immediately: Fever over 101 Degrees, Unusual Bleeding, Redness, Swelling, Warmth, Increased Soreness
== END 2018-05-18 11:57 | disposition home or self-care (01) ==
LOC: OROUT 05:38
PROVIDERS: ATTEND Orthopaedic Surgery
DX: M15.1 Heberden's nodes (with arthropathy) (principal); I10 Essential (primary) hypertension; E78.00 Pure hypercholesterolemia, unspecified; G62.9 Polyneuropathy, unspecified; K21.9 Gastro-esophageal reflux disease without esophagitis; Z01.818 Encounter for other preprocedural examination
CPT/HCPCS: 93010; 93005; 36415; 85027; 80048; 81001; 71046; 73140; 26860; C1713; C1769; J2250; J1200; J3010; J3490 ×2; J1885; J1170; J2704; J0690; J0131; A9270; 01830

== ENCOUNTER → 2018-06-29 | Outpatient (CLI) | payer MEDICARE, OTHER ==
--- NOTE | 2018-06-29 16:17 | XCELERA REPORT ---
[address] [facility] [place] [address] Lower Extremity Venous Evaluation Procedure: Color flow and duplex imaging of the veins of the right lower extremity as well as the left Common Femoral vein. Right Sided Venous Evaluation Normal vessel filling wall to wall, compression and augmentation as well as Colour flow down to the infrageniculate veins. Left Sided Venous Evaluation The left common femoral vein is fully compressible. Spontaneous and phasic flow is present in the left common femoral vein. Interpretation Summary No duplex evidence of DVT or obstruction in the right lower extremity nor in the left Common Femoral vein. Name: ADRI GARCIA Noemi Age: 67 yrs Gender: Female : 1950 Patient Status: Outpatient Patient Location: Study Date: 06/29/2018 03:04 PM Reason For Study: RLE SWELLING Ordering Physician: BRANDEN CROWELL Performed By: Yvrose Church : BRANDEN CROWELL > Shayne Phillips
== END ==
LOC: SP 14:51
PROVIDERS: ATTEND Internal Medicine
DX: R22.41 Localized swelling, mass and lump, right lower limb (principal)
CPT/HCPCS: 93971

== ENCOUNTER → 2018-08-11 | Outpatient (CLI) | payer MEDICARE, OTHER ==
[2018-08-11 12:43] LABS: ABSOLUTE EOSINOPHILS # (AUTO) 0.1 10^3/uL (0.0-0.6); ABSOLUTE LYMPHOCYTES (AUTO) 1.9 10^3/uL (0.5-4.7); ABSOLUTE NEUT (AUTO) 7.8 10^3/uL (1.7-8.2); BASOPHILS % (AUTO) 0.2 % (0-2); EOSINOPHILS % (AUTO) 0.7 % (0-6); HEMATOCRIT 38.6 % (36.0-47.0); HEMOGLOBIN 12.4 g/dL (12.0-15.5); LYMPHOCYTES % (AUTO) 17.5 % (13-45); MEAN CORPUSCULAR HEMOGLOBIN 27.2 pg (27.0-33.4); MEAN CORPUSCULAR HGB CONC 32.3 g/dL (32.0-36.0); MEAN CORPUSCULAR VOLUME 84 fl (80-97); MONOCYTES % (AUTO) 9.1 % (3-13); PLATELET COUNT 226 10^3/uL (150-450); RED BLOOD COUNT 4.57 10^6/uL (3.72-5.28); RED CELL DISTRIBUTION WIDTH 15.4 % (11.5-14.0); SEGMENTED NEUTROPHILS % (AUTO) 72.5 % (42-78); TOTAL CELLS COUNTED % (AUTO) 100 %; WHITE BLOOD COUNT 10.8 10^3/uL (4.0-10.5)
[2018-08-11 13:11] LABS: ALANINE AMINOTRANSFERASE 29 U/L (9-52); ALBUMIN 4.4 g/dL (3.5-5.0); ALKALINE PHOSPHATASE 102 U/L (38-126); ANION GAP 8 (5-19); ASPARTATE AMINO TRANSFERASE 19 U/L (14-36); BILIRUBIN,DIRECT 0.2 mg/dL (0.0-0.4); BILIRUBIN,TOTAL 0.5 mg/dL (0.2-1.3); BLOOD UREA NITROGEN 10 mg/dL (7-20); C-REACTIVE PROTEIN 43.9 mg/L (<10.0); CALCIUM 9.9 mg/dL (8.4-10.2); CARBON DIOXIDE 31 mmol/L (22-30); CHLORIDE 102 mmol/L (98-107); GLUCOSE 105 mg/dL (75-110); POTASSIUM 4.6 mmol/L (3.6-5.0); SODIUM 141.3 mmol/L (137-145); TOTAL PROTEIN 7.5 g/dL (6.3-8.2); URIC ACID 4.2 mg/dL (2.5-7.5)
[2018-08-11 13:18] LABS: ERYTHROCYTE SEDIMENTATION RATE 36 mm/hr (0-30)
== END ==
LOC: OD 11:49
PROVIDERS: ATTEND Family Medicine
DX: M25.50 Pain in unspecified joint (principal)
CPT/HCPCS: 36415; 80053; 84550; 85025; 85652; 86140

== ENCOUNTER 2018-12-14 15:17 | Inpatient (IN) | payer MEDICARE, OTHER ==
[2018-12-14] MEDS ORDERED: NORMAL SALINE 1000 ML 1,000 ML IV ONE (15:38)
--- NOTE | 2018-12-14 15:42 | ER Document Report ---
ED Medical Screen (RME) - General Chief Complaint: Lower Abdominal Pain Stated Complaint: LEFT LOWER QUADRANT PAIN/DIRECT ADMIT Time Seen by Provider: 12/14/18 15:33 Primary Care Provider: BRANDEN CROWELL MD [Primary Care Provider] - Follow up as needed Notes: Patient is a 68-year-old female who presents emergency department with a chief complaint of left lower quadrant abdominal pain. Last week she was sent to a CT of the abdomen pelvis with no contrast and they found she had diverticulosis and renal calculi. Patient states that she continues to have pain. She was seen by her primary care provider again was referred to the emergency department for a CT of the abdomen pelvis with contrast. Patient is on [place] for chronic pain. Patient states that she sometimes gets constipated. Yesterday she had a bowel movement, but states that she was straining. Exam: Left lower quadrant abdomen very tender. I have greeted and performed a rapid initial assessment of this patient. A comprehensive ED assessment and evaluation of the patient, analysis of test results and completion of medical decision making process will be conducted by an additional ED providers. TRAVEL OUTSIDE OF THE [place] IN LAST 30 DAYS: No - Related Data Allergies/Adverse Reactions: morphine [Morphine] Allergy (Severe, Verified 12/14/18 15:29) blisters at insertion site of iv,severe nausea aspirin [Aspirin] Adverse Reaction (Intermediate, Verified 12/14/18 15:29) abdominal pain oxycodone [From Percocet] Adverse Reaction (Mild, Verified 12/14/18 15:29) Generalized Itching Past Medical History - Social History Chew tobacco use (# tins/day): No Frequency of alcohol use: None Drug Abuse: None - Past Medical History Cardiac Medical History: Reports: Hx Hypercholesterolemia, Hx Hypertension - medicated Denies: Hx Coronary Artery Disease, Hx Heart Attack Pulmonary Medical History: Reports: Hx Pneumonia Denies: Hx Asthma, Hx Bronchitis, Hx COPD, Hx Tuberculosis Neurological Medical History: Reports: Hx Migraine. Denies: Hx Cerebrovascular Accident, Hx Seizures Renal/ Medical History: Denies: Hx Peritoneal Dialysis GI Medical History: Reports: Hx Gastroesophageal Reflux Disease, Hx Hiatal Hernia. Denies: Hx Hepatitis, Hx Ulcer Musculoskeltal Medical History: Reports Hx Arthritis Psychiatric Medical History: Denies: Hx Depression Infectious Medical History: Denies: Hx Hepatitis Past Surgical History: Reports: Hx Appendectomy, Hx Cholecystectomy, Hx Genitourinary Surgery - Bladder tact, Hx Hysterectomy, Hx Neurologic Surgery - Back, Hx Orthopedic Surgery - Bilat foot; Bilat shoulder; Bilat knee; Bilat hip, Hx Tonsillectomy, Hx Tubal Ligation. Denies: Hx Mastectomy, Hx Open Heart Surgery, Hx Pacemaker - Immunizations Hx Diphtheria, Pertussis, Tetanus Vaccination: No Physical Exam - Vital signs Vitals: Temp Pulse Resp BP 98.0 F 78 18 147/64 H 12/14/18 15:28 12/14/18 15:28 12/14/18 15:28 12/14/18 15:28 Course - Vital Signs Vital signs: Temp Pulse Resp BP Pulse Ox 98.0 F 78 18 147/64 H 12/14/18 15:28 12/14/18 15:28 12/14/18 15:28 12/14/18 15:28 Doctor's Discharge - Discharge Referrals: BRANDEN CROWELL MD [Primary Care Provider] - Follow up as needed
[2018-12-14 16:11] LABS: ABSOLUTE BASOPHILS # (AUTO) 0.1 10^3/uL (0.0-0.2); ABSOLUTE EOSINOPHILS # (AUTO) 0.1 10^3/uL (0.0-0.6); ABSOLUTE LYMPHOCYTES (AUTO) 2.5 10^3/uL (0.5-4.7); ABSOLUTE NEUT (AUTO) 8.7 10^3/uL (1.7-8.2); BASOPHILS % (AUTO) 0.4 % (0-2); EOSINOPHILS % (AUTO) 0.5 % (0-6); HEMATOCRIT 40.6 % (36.0-47.0); HEMOGLOBIN 13.2 g/dL (12.0-15.5); LYMPHOCYTES % (AUTO) 20.5 % (13-45); MEAN CORPUSCULAR HEMOGLOBIN 27.2 pg (27.0-33.4); MEAN CORPUSCULAR HGB CONC 32.5 g/dL (32.0-36.0); MEAN CORPUSCULAR VOLUME 84 fl (80-97); MONOCYTES % (AUTO) 7.9 % (3-13); PLATELET COUNT 243 10^3/uL (150-450); RED BLOOD COUNT 4.86 10^6/uL (3.72-5.28); RED CELL DISTRIBUTION WIDTH 15.6 % (11.5-14.0); SEGMENTED NEUTROPHILS % (AUTO) 70.7 % (42-78); TOTAL CELLS COUNTED % (AUTO) 100 %; WHITE BLOOD COUNT 12.4 10^3/uL (4.0-10.5)
[2018-12-14 16:34] LABS: ALBUMIN 4.5 g/dL (3.5-5.0); ALKALINE PHOSPHATASE 120 U/L (38-126); ANION GAP 14 (5-19); ASPARTATE AMINO TRANSFERASE 29 U/L (14-36); BILIRUBIN,DIRECT 0.1 mg/dL (0.0-0.4); BILIRUBIN,TOTAL 0.5 mg/dL (0.2-1.3); BLOOD UREA NITROGEN 12 mg/dL (7-20); CALCIUM 10.2 mg/dL (8.4-10.2); CARBON DIOXIDE 26 mmol/L (22-30); CHLORIDE 104 mmol/L (98-107); GLUCOSE 120 mg/dL (75-110); POTASSIUM 4.2 mmol/L (3.6-5.0)
[2018-12-14 17:15] LABS: APPEARANCE,URINE CLEAR; BILIRUBIN,URINE NEGATIVE (NEGATIVE); COLOR,URINE STRAW; GLUCOSE, URINE NEGATIVE (NEGATIVE); KETONES,URINE NEGATIVE (NEGATIVE); LEUKOCYTE ESTERASE,URINE NEGATIVE (NEGATIVE); NITRITE,URINE NEGATIVE (NEGATIVE); PROTEIN,URINE NEGATIVE (NEGATIVE); UROBILINOGEN,URINE NEGATIVE mg/dL (<2.0)
--- NOTE | 2018-12-14 17:28 | RADIOLOGY REPORT (SQ) ---
EXAM DESCRIPTION: CT ABD/PELVIS WITH IV ONLY COMPLETED DATE/TIME: 12/14/2018 5:01 pm REASON FOR STUDY: LLQ abd pain COMPARISON: None. TECHNIQUE: CT scan of the abdomen and pelvis performed using helical scanning technique with dynamic intravenous contrast injection. No oral contrast. Images reviewed with lung, soft tissue, and bone windows. Reconstructed coronal and sagittal MPR images reviewed. Delayed images for evaluation of the urinary system also acquired. All images stored on PACS. All CT scanners at this facility use dose modulation, iterative reconstruction, and/or weight based d osing when appropriate to reduce radiation dose to as low as reasonably achievable (ALARA). [facility]: Dose Right [facility]: CareDose [facility]: Dose Right [facility]: Teradose 4D [facility]: [employer] CONTRAST TYPE AND DOSE: 100 mL Omnipaque 350- low osmolar. RENAL FUNCTION: BUN 12 creatinine 0.62 RADIATION DOSE: . LIMITATIONS: None. FINDINGS: LOWER CHEST: No significant findings. No nodules or infiltrates. LIVER: Normal size. No masses. No dilated ducts. SPLEEN: Normal size. No focal lesions. PANCREAS: No masses. No significant calcifications. No adjacent inflammation or peripancreatic fluid collections. Pancreatic duct not dilated. GALLBLADDER: Surgically absent. ADRENAL GLANDS: No significant masses or asymmetry. RIGHT KIDNEY AND URETER: No solid masses. No significant calcifications. No hydronephrosis or hyd roureter. LEFT KIDNEY AND URETER: No solid masses. No significant calcifications. No hydronephrosis or hydr oureter. AORTA AND VESSELS: No aneurysm. No dissection. Renal arteries, SMA, celiac without stenosis. RETROPERITONEUM: No retroperitoneal adenopathy, hemorrhage or masses. BOWEL AND PERITONEAL CAVITY: No masses or inflammatory changes. No free fluid or peritoneal masses. APPENDIX: Surgically absent. PELVIS: No pelvic mass or fluid collection. Evaluation of the lower pelvis is limited by artifact fr om bilateral hip prostheses. ABDOMINAL WALL: No masses. No hernias. BONES: Posterior rods at L5-S1 with screws through the pedicles. OTHER: A neurostimulator is present. IMPRESSION: NO SIGNIFICANT OR ACUTE FINDING IN THE ABDOMEN OR PELVIS ON CT SCAN WITH IV CONTRAST. TECHNICAL DOCUMENTATION: JOB ID: [id number] Quality ID # [id number]: Final reports with documentation of one or more dose reduction techniques (e.g., Au tomated exposure control, adjustment of the mA and/or kV according to patient size, use of iterative reconstruction technique) 2010 [employer]- All Rights Reserved Reading location - IP/workstation name: [email or web address]
[2018-12-14] MEDS ORDERED: HYDROMORPHONE HCL INJ/PF 2 MG/ML AMPULE ONE (18:28)
[2018-12-14] MEDS: HYDROMORPHONE HCL INJ/PF 2 MG/ML AMPULE IV PRN (18:35)
[2018-12-14] MEDS: NORMAL SALINE 1000 ML 1,000 ML IV PRN (18:36)
--- NOTE | 2018-12-14 20:43 | PDOC H&P ---
History of Present Illness Admission Date/PCP: 12/14/18 16:29 BRANDEN CROWELL MD History of Present Illness: ADRI GARCIA is a 68 year old female she came to the office for evaluation of left flank pain with radiation to the groin, that was last week I suspected kidney stone, I ordered CAT scan for kidney stone protocol, it was negative, she was still treated empirically for kidney stone because the presentation was consistent with renal colic due to kidney stone. She came to the office today complaining of severe pain in the left abdomen, she said she could no longer jean pierre e it anymore, on examination in the office she was very tender, she was admitted directly from outpatient to the hospital, a CT scan of the abdomen and pelvis with IV contrast was obtained it was negative there was no acute pathology. I am not exactly sure what is causing her pain so far evaluation is showing no particular etiology. Past Medical History Cardiac Medical History: Reports: Hyperlipidema, Hypertension Pulmonary Medical History: Reports: Asthma, Bronchitis, Pneumonia Neurological Medical History: Reports: Migraine GI Medical History: Reports: Gastroesophageal Reflux Disease, Hiatal Hernia Musculoskeltal Medical History: Reports: Arthritis Past Surgical History Past Surgical History: Reports: Appendectomy, Cholecystectomy, Hysterectomy, Orthopedic Surgery - Bilat foot; Bilat shoulder; Bilat knee; Bilat hip, Tonsillectomy, Tubal Ligation Social History Smoking Status: Never Smoker Electronic Cigarette use?: No Frequency of Alcohol Use: None Hx Recreational Drug Use: No Drugs: None Hx Prescription Drug Abuse: No Family History Family History: Reviewed & Not Pertinent Parental Family History Reviewed: Yes Children Family History Reviewed: Yes Sibling(s) Family History Reviewed.: Yes Medication/Allergy Home Medications: Telmisartan [Micardis 80 mg Tablet] 80 mg PO DAILY 04/23/17 Diclofenac Sodium [Voltaren] 1 applic TP BID 10/02/17 Methylnaltrexone [place] [Relistor Inj/Pf 12 mg/0.6 ml Kit] 12 mg SUBCUT Q2D 05/17/18 Atorvastatin Calcium [Lipitor 20 mg Tablet] 20 mg PO QHS 12/14/18 Dexlansoprazole [Dexilant 60 mg Capsule] 60 mg PO DAILY 12/14/18 Hydrocodone/Acetaminophen [Corry 7.5-325 mg Tablet] 1 tab PO BIDP PRN 12/14/18 Hydromorphone HCl [Dilaudid] 4 mg PO Q4H 12/14/18 Lidocaine [Lidoderm 5% (700 mg) Transdermal Patch] 1 patch TP DAILY 12/14/18 Polyethylene Glycol 3350 [Gentlelax] 1 dose PO DAILY 12/14/18 Pregabalin [Lyrica 75 mg Capsule] 75 mg PO QID 12/14/18 Zaleplon 5 mg PO QHS 12/14/18 Allergies/Adverse Reactions: morphine [Morphine] Allergy (Severe, Verified 12/14/18 15:29) blisters at insertion site of iv,severe nausea aspirin [Aspirin] Adverse Reaction (Intermediate, Verified 12/14/18 15:29) abdominal pain oxycodone [From Percocet] Adverse Reaction (Mild, Verified 12/14/18 15:29) Generalized Itching Review of Systems Constitutional: ABSENT: chills, fever(s), headache(s), weight gain, weight loss Eyes: ABSENT: visual disturbances Ears: ABSENT: hearing changes Cardiovascular: ABSENT: chest pain, dyspnea on exertion, edema, orthropnea, palpitations Respiratory: ABSENT: cough, hemoptysis Gastrointestinal: PRESENT: abdominal pain. ABSENT: constipation, diarrhea, hematemesis, hematochezia, nausea, vomiting Genitourinary: ABSENT: dysuria, hematuria Musculoskeletal: ABSENT: joint swelling Integumentary: ABSENT: rash, wounds Neurological: ABSENT: abnormal gait, abnormal speech, confusion, dizziness, focal weakness, syncope Psychiatric: ABSENT: anxiety, depression, homidical ideation, suicidal ideation Endocrine: ABSENT: cold intolerance, heat intolerance, menstrual abnormalities, polydipsia, polyuria Hematologic/Lymphatic: ABSENT: easy bleeding, easy bruising, lymphadenopathy Physical Exam Vital Signs: Temp Pulse Resp BP Pulse Ox 98.4 F 66 18 152/72 H 100 12/14/18 18:22 12/14/18 18:22 12/14/18 18:22 12/14/18 18:22 12/14/18 18:22 Intake & Output 12/13/18 12/14/18 12/15/18 06:59 06:59 06:59 Weight 91.6 kg General appearance: PRESENT: no acute distress, well-developed, well-nourished Head exam: PRESENT: atraumatic, normocephalic Eye exam: PRESENT: conjunctiva pink, EOMI, PERRLA Ear exam: PRESENT: normal external ear exam Mouth exam: PRESENT: moist, tongue midline Neck exam: PRESENT: full ROM Respiratory exam: PRESENT: clear to auscultation uyen Cardiovascular exam: PRESENT: RRR, +S1, +S2 Pulses: PRESENT: normal dorsalis pedis pul, +2 pedal pulses bilateral Vascular exam: PRESENT: normal capillary refill GI/Abdominal exam: PRESENT: normal bowel sounds, soft, tenderness Rectal exam: PRESENT: deferred Neurological exam: PRESENT: alert, awake, oriented to person, oriented to place, oriented to time, oriented to situation, CN II-XII grossly intact Psychiatric exam: PRESENT: appropriate affect, normal mood Skin exam: PRESENT: dry, intact, warm. ABSENT: cyanosis, rash Results Laboratory Results: 12/14/18 16:07 12/14/18 16:07 12/14/18 12/14/18 12/14/18 16:07 16:07 16:07 WBC 12.4 H RBC 4.86 Hgb 13.2 Hct 40.6 MCV 84 MCH 27.2 MCHC 32.5 RDW 15.6 H Plt Count 243 Seg Neutrophils % 70.7 Sodium 143.7 Potassium 4.2 Chloride 104 Carbon Dioxide 26 Anion Gap 14 BUN 12 Creatinine 0.62 Est GFR ( Amer) > 60 Glucose 120 H Calcium 10.2 Total Bilirubin 0.5 AST 29 Alkaline Phosphatase 120 Total Protein 8.0 Albumin 4.5 Amylase 61 Lipase 94.2 Urine Color Urine Appearance Urine pH Ur Specific [place] Urine Protein Urine Glucose (UA) Urine Ketones Urine Blood Urine Nitrite Ur Leukocyte Esterase Urine WBC (Auto) Urine RBC (Auto) 12/14/18 16:45 WBC RBC Hgb Hct MCV MCH MCHC RDW Plt Count Seg Neutrophils % Sodium Potassium Chloride Carbon Dioxide Anion Gap BUN Creatinine Est GFR ( Amer) Glucose Calcium Total Bilirubin AST Alkaline Phosphatase Total Protein Albumin Amylase Lipase Urine Color STRAW Urine Appearance CLEAR Urine pH 7.0 Ur Specific [place] 1.010 Urine Protein NEGATIVE Urine Glucose (UA) NEGATIVE Urine Ketones NEGATIVE Urine Blood NEGATIVE Urine Nitrite NEGATIVE Ur Leukocyte Esterase NEGATIVE Urine WBC (Auto) 1 Urine RBC (Auto) 1 Impressions: Abdomen/Pelvis CT 12/14/18 15:38 IMPRESSION: NO SIGNIFICANT OR ACUTE FINDING IN THE ABDOMEN OR PELVIS ON CT SCAN WITH IV CONTRAST. Assessment & Plan - Diagnosis (1) Left lower quadrant abdominal pain Is this a current diagnosis for this admission?: Yes Plan: She is admitted for the evaluation of abdominal pain
[2018-12-14] MEDS ORDERED: METHYLNALTREXONE BROMIDE SUBCUT SCH (20:45)
[2018-12-14] MEDS ORDERED: [UNRECOGNIZED DRUG - OTHER] SUBCUT SCH (20:45)
[2018-12-14] MEDS ORDERED: POLYETHYLENE GLYCOL PO SCH (20:45)
[2018-12-14] MEDS ORDERED: (PENDING PHARMACY ID) (Telmisartan [Micardis 80 Mg Tablet] 80 MG) PO SCH (20:45)
[2018-12-14] MEDS: LOSARTAN POTASSIUM 50 MG TABLET PO SCH (21:46)
[2018-12-14] MEDS: PANTOPRAZOLE SODIUM 40 MG TABLET.DR PO SCH (21:46)
[2018-12-14] MEDS: POLYETHYLENE GLYCOL 3350 POWDER 17 GM/1 PACKET PO SCH (21:47)
[2018-12-15] MEDS: HYDROMORPHONE HCL INJ/PF 2 MG/ML AMPULE IV PRN ×5 (00:38→21:10)
[2018-12-15] MEDS: DIPHENHYDRAMINE HCL 50 MG/ML VIAL IV PRN ×4 (00:39→21:10)
[2018-12-15] MEDS: PREGABALIN 75 MG CAPSULE PO SCH ×4 (00:39→11:33)
[2018-12-15] MEDS: NORMAL SALINE 1000 ML 1,000 ML IV PRN ×2 (05:14→21:10)
[2018-12-15] MEDS ORDERED: INFLUENZA QUAD (6MOS+) 2019-20 VAC 0.5 ML SYR IM ONE (08:00)
[2018-12-15] MEDS: PANTOPRAZOLE SODIUM 40 MG TABLET.DR PO SCH (10:04)
[2018-12-15] MEDS: POLYETHYLENE GLYCOL 3350 POWDER 17 GM/1 PACKET PO SCH (10:05)
[2018-12-15] MEDS: LOSARTAN POTASSIUM 50 MG TABLET PO SCH (10:05)
[2018-12-15] MEDS: LIDOCAINE 5% (700 MG) TRANSDERMAL ADH..PATCH TP SCH (15:02)
--- NOTE | 2018-12-15 16:37 | PDOC PROGRESS REPORT ---
Subjective Progress Note for:: 12/15/18 Subjective:: Patient seen by the bedside she has severe pain involving the left flank with dermatomal distribution, there is no rash but the presentation and the pattern of this pain is consistent with herpes neuralgia. Mild touch of the skin of the flank induces severe pain. Patient is already on Lyrica for chronic back pain, the CT scan of the abdomen and pelvis did not demonstrate any pathology. She will empirically be treated with intravenous acyclovir at 10 mg/kg IV every 8 for 10 days hopefully we can convert this to p.o. if she responds to treatment in 2 to 5 days Reason For Visit: SEVERE LEFT LOWER ABDOMINAL PAIN Physical Exam Vital Signs: Temp Pulse Resp BP Pulse Ox 98.9 F 74 15 146/54 H 95 12/15/18 07:52 12/15/18 14:00 12/15/18 07:52 12/15/18 07:52 12/15/18 07:52 Intake & Output 12/14/18 12/15/18 12/16/18 06:59 06:59 06:59 Intake Total 1630 480 Balance 1630 480 Weight 94.6 kg Results Laboratory Results: 12/14/18 16:07 12/14/18 16:07 12/14/18 12/14/18 12/14/18 16:07 16:07 16:45 Sodium 143.7 Potassium 4.2 Chloride 104 Carbon Dioxide 26 Anion Gap 14 BUN 12 Creatinine 0.62 Est GFR ( Amer) > 60 Glucose 120 H Calcium 10.2 Total Bilirubin 0.5 AST 29 Alkaline Phosphatase 120 Total Protein 8.0 Albumin 4.5 Amylase 61 Lipase 94.2 Urine Color STRAW Urine Appearance CLEAR Urine pH 7.0 Ur Specific [place] 1.010 Urine Protein NEGATIVE Urine Glucose (UA) NEGATIVE Urine Ketones NEGATIVE Urine Blood NEGATIVE Urine Nitrite NEGATIVE Ur Leukocyte Esterase NEGATIVE Urine WBC (Auto) 1 Urine RBC (Auto) 1 12/14/18 21:35 Creatine Kinase 44 Impressions: Abdomen/Pelvis CT 12/14/18 15:38 IMPRESSION: NO SIGNIFICANT OR ACUTE FINDING IN THE ABDOMEN OR PELVIS ON CT SCAN WITH IV CONTRAST. Assessment & Plan - Diagnosis (1) Left lower quadrant abdominal pain Is this a current diagnosis for this admission?: Yes (2) Shingles (herpes zoster) polyneuropathy Is this a current diagnosis for this admission?: Yes Plan: The syndrome is consistent with shingles polyneuropathy, she has severe pain in the flank with dermatomal distribution there is no rash on inspection of the skin she has some erythema of the skin that follows dermatomal distribution there is no obvious blisterlike lesion, she is also very irritative there is severe paresthesia, light touch induces severe pain, she will empirically be treated with IV acyclovir, will increased Lyrica to 150 mg every 8 hours, apply lidocaine patch - Time Time Spent with patient: 35 or more minutes
[2018-12-15] MEDS: ACYCLOVIR SODIUM 750 MG in NORMAL SALINE 250 ML IV SCH (17:59)
[2018-12-15] MEDS: METHYLPREDNISOLONE INJ 40 MG/1 ML SDV IV SCH ×2 (17:59→21:10)
[2018-12-15] MEDS: PREGABALIN 100 MG CAPSULE PO SCH (21:09)
[2018-12-15] MEDS ORDERED: LIDOCAINE 5% (700 MG) TRANSDERMAL ADH..PATCH TP SCH (22:00)
[2018-12-16] MEDS: ACYCLOVIR SODIUM 750 MG in NORMAL SALINE 250 ML IV SCH ×3 (02:54→17:14)
[2018-12-16] MEDS: DIPHENHYDRAMINE HCL 50 MG/ML VIAL IV PRN ×3 (06:41→21:11)
[2018-12-16] MEDS: METHYLPREDNISOLONE INJ 40 MG/1 ML SDV IV SCH ×3 (06:41→21:11)
[2018-12-16] MEDS: HYDROMORPHONE HCL INJ/PF 2 MG/ML AMPULE IV PRN ×3 (06:42→21:11)
[2018-12-16] MEDS: NORMAL SALINE 1000 ML 1,000 ML IV PRN ×2 (06:54→23:10)
[2018-12-16] MEDS: PREGABALIN 100 MG CAPSULE PO SCH ×2 (10:12→21:12)
[2018-12-16] MEDS: POLYETHYLENE GLYCOL 3350 POWDER 17 GM/1 PACKET PO SCH (10:12)
[2018-12-16] MEDS: LOSARTAN POTASSIUM 50 MG TABLET PO SCH (10:12)
[2018-12-16] MEDS: PANTOPRAZOLE SODIUM 40 MG TABLET.DR PO SCH ×2 (10:12→10:16)
[2018-12-16] MEDS: LIDOCAINE 5% (700 MG) TRANSDERMAL ADH..PATCH TP SCH ×2 (10:42→11:20)
--- NOTE | 2018-12-16 19:55 | PDOC PROGRESS REPORT ---
Subjective Progress Note for:: 12/16/18 Subjective:: Patient was admitted when she presented with pain in the left flank with dermatomal distribution, there is no rash I have a high index of suspicion for shingles polyneuropathy, she is empirically being treated for shingles polyneuropathy with intravenous acyclovir, Lyrica, and Solu-Medrol patient felt somewhat better though she still has pain but not as intense as it was when she came to the hospital. She will continue same treatment for now for the next few days the CAT scan of the abdomen and pelvis with IV contrast was negative Reason For Visit: SEVERE LEFT LOWER ABDOMINAL PAIN Physical Exam Vital Signs: Temp Pulse Resp BP Pulse Ox 97.5 F 77 17 138/66 H 93 12/16/18 15:39 12/16/18 19:00 12/16/18 15:39 12/16/18 15:39 12/16/18 15:39 Intake & Output 12/15/18 12/16/18 12/17/18 06:59 06:59 06:59 Intake Total 1630 5243 1250 Balance 1630 5243 1250 Weight 94.6 kg 95.6 kg General appearance: PRESENT: no acute distress Eye exam: PRESENT: PERRLA Respiratory exam: PRESENT: clear to auscultation uyen Cardiovascular exam: PRESENT: +S1, +S2 GI/Abdominal exam: PRESENT: soft Results Laboratory Results: 12/14/18 16:07 12/14/18 16:07 12/14/18 21:35 Creatine Kinase 44 Impressions: Abdomen/Pelvis CT 12/14/18 15:38 IMPRESSION: NO SIGNIFICANT OR ACUTE FINDING IN THE ABDOMEN OR PELVIS ON CT SCAN WITH IV CONTRAST. Assessment & Plan - Diagnosis (1) Left lower quadrant abdominal pain Is this a current diagnosis for this admission?: Yes (2) Shingles (herpes zoster) polyneuropathy Is this a current diagnosis for this admission?: Yes Plan: The syndrome is consistent with shingles polyneuropathy, she has severe pain in the flank with dermatomal distribution there is no rash on inspection of the skin she has some erythema of the skin that follows dermatomal distribution th ere is no obvious blisterlike lesion, she is also very irritative there is severe paresthesia, light touch induces severe pain, she will empirically be treated with IV acyclovir, will increased Lyrica to 300mg mg every 12 hours, apply lidocaine patchI explained the plan of care for the patient - Time Time Spent with patient: 35 or more minutes
[2018-12-16] MEDS: PHARMACY COMMUNICATION ORDER MC SCH (23:10)
[2018-12-17] MEDS: ACYCLOVIR SODIUM 750 MG in NORMAL SALINE 250 ML IV SCH ×3 (02:23→18:14)
[2018-12-17] MEDS: METHYLPREDNISOLONE INJ 40 MG/1 ML SDV IV SCH ×3 (05:21→21:13)
[2018-12-17] MEDS: LOSARTAN POTASSIUM 50 MG TABLET PO SCH (09:38)
[2018-12-17] MEDS: PANTOPRAZOLE SODIUM 40 MG TABLET.DR PO SCH (09:38)
[2018-12-17] MEDS: PREGABALIN 100 MG CAPSULE PO SCH ×2 (09:38→21:14)
[2018-12-17] MEDS: LIDOCAINE 5% (700 MG) TRANSDERMAL ADH..PATCH TP SCH (09:38)
[2018-12-17] MEDS: POLYETHYLENE GLYCOL 3350 POWDER 17 GM/1 PACKET PO SCH (09:39)
[2018-12-17] MEDS ORDERED: LIDOCAINE 5% (700 MG) TRANSDERMAL ADH..PATCH TP SCH (10:00)
[2018-12-17] MEDS: HYDROMORPHONE HCL INJ/PF 2 MG/ML AMPULE IV PRN ×3 (11:03→21:13)
[2018-12-17] MEDS: DIPHENHYDRAMINE HCL 50 MG/ML VIAL IV PRN ×3 (11:07→21:13)
[2018-12-17 18:26] LABS: ALBUMIN 4.2 g/dL (3.5-5.0); ALKALINE PHOSPHATASE 130 U/L (38-126); ANION GAP 14 (5-19); ASPARTATE AMINO TRANSFERASE 23 U/L (14-36); BILIRUBIN,DIRECT 0.2 mg/dL (0.0-0.4); BILIRUBIN,TOTAL 0.2 mg/dL (0.2-1.3); BLOOD UREA NITROGEN 13 mg/dL (7-20); CALCIUM 9.8 mg/dL (8.4-10.2); CARBON DIOXIDE 23 mmol/L (22-30); CHLORIDE 111 mmol/L (98-107); GLUCOSE 183 mg/dL (75-110); POTASSIUM 4.1 mmol/L (3.6-5.0); TOTAL PROTEIN 7.4 g/dL (6.3-8.2)
--- NOTE | 2018-12-17 19:58 | PDOC PROGRESS REPORT ---
Subjective Progress Note for:: 12/17/18 Subjective:: Patient was seen by the bedside, she says she was doing well until today when she had pain in the flank again. The present working diagnosis is shingles polyneuropathy Reason For Visit: SHINGLES POLYNEUROPATHY Physical Exam Vital Signs: Temp Pulse Resp BP Pulse Ox 98.2 F 66 16 172/72 H 100 12/17/18 19:38 12/17/18 19:21 12/17/18 19:38 12/17/18 19:38 12/17/18 19:38 Intake & Output 12/16/18 12/17/18 12/18/18 06:59 06:59 06:59 Intake Total 5243 3015 1073 Balance 5243 3015 1073 Weight 95.6 kg General appearance: PRESENT: no acute distress Eye exam: PRESENT: PERRLA Respiratory exam: PRESENT: clear to auscultation uyen Cardiovascular exam: PRESENT: +S1, +S2 GI/Abdominal exam: PRESENT: soft Neurological exam: PRESENT: alert, CN II-XII grossly intact Results Laboratory Results: 12/17/18 18:00 12/17/18 18:00 12/17/18 12/17/18 18:00 18:00 WBC Cancelled RBC Cancelled Hgb Cancelled Hct Cancelled MCV Cancelled MCH Cancelled MCHC Cancelled RDW Cancelled Plt Count Cancelled Seg Neutrophils % Cancelled Sodium 147.9 H Potassium 4.1 Chloride 111 H Carbon Dioxide 23 Anion Gap 14 BUN 13 Creatinine 0.60 Est GFR ( Amer) > 60 Glucose 183 H Calcium 9.8 Total Bilirubin 0.2 AST 23 Alkaline Phosphatase 130 H Total Protein 7.4 Albumin 4.2 12/14/18 21:35 Creatine Kinase 44 Impressions: Abdomen/Pelvis CT 12/14/18 15:38 IMPRESSION: NO SIGNIFICANT OR ACUTE FINDING IN THE ABDOMEN OR PELVIS ON CT SCAN WITH IV CONTRAST. Assessment & Plan - Diagnosis (1) Left lower quadrant abdominal pain Is this a current diagnosis for this admission?: Yes (2) Shingles (herpes zoster) polyneuropathy Is this a current diagnosis for this admission?: Yes Plan: Continue present line of management, I had a long discussion with the patient and her spouse about my suspicion and treatment plan - Time Time Spent with patient: 35 or more minutes
[2018-12-17] MEDS: PHARMACY COMMUNICATION ORDER MC SCH (21:14)
[2018-12-18] MEDS: ACYCLOVIR SODIUM 750 MG in NORMAL SALINE 250 ML IV SCH ×2 (01:11→11:55)
[2018-12-18] MEDS: DIPHENHYDRAMINE HCL 50 MG/ML VIAL IV PRN ×4 (03:04→21:28)
[2018-12-18] MEDS: HYDROMORPHONE HCL INJ/PF 2 MG/ML AMPULE IV PRN ×4 (03:04→21:27)
[2018-12-18 05:20] LABS: HEMATOCRIT 35.3 % (36.0-47.0); HEMOGLOBIN 11.1 g/dL (12.0-15.5); MEAN CORPUSCULAR HEMOGLOBIN 26.6 pg (27.0-33.4); MEAN CORPUSCULAR HGB CONC 31.5 g/dL (32.0-36.0); MEAN CORPUSCULAR VOLUME 84 fl (80-97); PLATELET COUNT 273 10^3/uL (150-450); RED BLOOD COUNT 4.18 10^6/uL (3.72-5.28); WHITE BLOOD COUNT 18.2 10^3/uL (4.0-10.5)
[2018-12-18 05:33] LABS: ALBUMIN 3.5 g/dL (3.5-5.0); ALKALINE PHOSPHATASE 103 U/L (38-126); ANION GAP 9 (5-19); ASPARTATE AMINO TRANSFERASE 22 U/L (14-36); BLOOD UREA NITROGEN 11 mg/dL (7-20); CALCIUM 8.9 mg/dL (8.4-10.2); CARBON DIOXIDE 25 mmol/L (22-30); CHLORIDE 110 mmol/L (98-107); GLUCOSE 170 mg/dL (75-110); POTASSIUM 4.1 mmol/L (3.6-5.0); TOTAL PROTEIN 6.2 g/dL (6.3-8.2)
[2018-12-18] MEDS: METHYLPREDNISOLONE INJ 40 MG/1 ML SDV IV SCH ×4 (05:33→21:28)
[2018-12-18 05:55] LABS: BILIRUBIN,TOTAL < 0.1 mg/dL (0.2-1.3)
[2018-12-18 06:08] LABS: ABSOLUTE MONOCYTES # (MANUAL) 0.7 10^3/uL (0.1-1.4); ANISOCYTOSIS SLIGHT; BAND NEUTROPHILS % (MANUAL) 7 % (3-5); BASOPHILS % (MANUAL) 0 % (0-2); EOSINOPHILS % (MANUAL) 0 % (0-6); LYMPHOCYTES % (MANUAL) 11 % (13-45); MONOCYTES % (MANUAL) 4 % (3-13); SEGMENTED NEUTROPHILS % (MAN) 78 % (42-78); TOTAL CELLS COUNTED 100
[2018-12-18 06:09] LABS: PLATELET COMMENT ADEQUATE
[2018-12-18] MEDS: PANTOPRAZOLE SODIUM 40 MG TABLET.DR PO SCH (10:29)
[2018-12-18] MEDS: PREGABALIN 100 MG CAPSULE PO SCH ×2 (10:29→21:27)
[2018-12-18] MEDS: LOSARTAN POTASSIUM 50 MG TABLET PO SCH (10:29)
[2018-12-18] MEDS: POLYETHYLENE GLYCOL 3350 POWDER 17 GM/1 PACKET PO SCH (10:30)
[2018-12-18] MEDS: LIDOCAINE 5% (700 MG) TRANSDERMAL ADH..PATCH TP SCH (10:30)
--- NOTE | 2018-12-18 15:56 | PDOC PROGRESS REPORT ---
Subjective Progress Note for:: 12/18/18 Subjective:: Patient seen by the bedside, the pain is improved some, I spoke to [facility] about possible transfer to tertiary care, the physician does not see a need for transfer at this time. CAT scan of the thoracic and lumbar spine is ordered CT lumbar spine demonstrated multilevel degenerative disc disease at L3-L4, L4- L5 there is degenerated circumferential bulging disc with vacuum disc phenomenon, facet arthropathy and hypertrophy, at L4-L5 changes of a degenerated circumferential bulging disc. Minimal degenerative anterolisthesis of L4 on L5. Facet arthropathy and hypertrophy, narrowing of the spinal canal at the disc level secondary to facet arthropathy. L5-S1 pedicle screws and rods from prior fusion at L5-S1. The thoracic spine demonstrated increased dorsal kyphosis Reason For Visit: SHINGLES POLYNEUROPATHY Physical Exam Vital Signs: Temp Pulse Resp BP Pulse Ox 98.5 F 63 17 170/69 H 95 12/18/18 11:29 12/18/18 14:00 12/18/18 11:29 12/18/18 11:29 12/18/18 11:29 Intake & Output 12/17/18 12/18/18 12/19/18 06:59 06:59 06:59 Intake Total 3015 2053 485 Balance 3015 2053 485 General appearance: PRESENT: no acute distress Eye exam: PRESENT: PERRLA Cardiovascular exam: PRESENT: +S1, +S2 GI/Abdominal exam: PRESENT: soft Neurological exam: PRESENT: alert Results Laboratory Results: 12/18/18 04:55 12/18/18 04:55 12/17/18 12/17/18 12/18/18 18:00 18:00 04:55 WBC Cancelled 18.2 H RBC Cancelled 4.18 Hgb Cancelled 11.1 L Hct Cancelled 35.3 L MCV Cancelled 84 MCH Cancelled 26.6 L MCHC Cancelled 31.5 L RDW Cancelled 15.0 H Plt Count Cancelled 273 Seg Neutrophils % Cancelled Not Reportable Sodium 147.9 H Potassium 4.1 Chloride 111 H Carbon Dioxide 23 Anion Gap 14 BUN 13 Creatinine 0.60 Est GFR ( Amer) > 60 Glucose 183 H Calcium 9.8 Total Bilirubin 0.2 AST 23 Alkaline Phosphatase 130 H Total Protein 7.4 Albumin 4.2 12/18/18 04:55 WBC RBC Hgb Hct MCV MCH MCHC RDW Plt Count Seg Neutrophils % Sodium 144.4 Potassium 4.1 Chloride 110 H Carbon Dioxide 25 Anion Gap 9 BUN 11 Creatinine 0.53 Est GFR ( Amer) > 60 Glucose 170 H Calcium 8.9 Total Bilirubin < 0.1 L AST 22 Alkaline Phosphatase 103 Total Protein 6.2 L Albumin 3.5 12/14/18 21:35 Creatine Kinase 44 Impressions: Abdomen/Pelvis CT 12/14/18 15:38 IMPRESSION: NO SIGNIFICANT OR ACUTE FINDING IN THE ABDOMEN OR PELVIS ON CT SCAN WITH IV CONTRAST. Assessment & Plan - Diagnosis (1) Shingles (herpes zoster) polyneuropathy Is this a current diagnosis for this admission?: Yes Plan: , Discontinue IV acyclovir, start p.o. (2) Lumbar canal stenosis Qualifiers: Neurogenic claudication status: with neurogenic claudication Qualified Co de(s): M48.062 - Spinal stenosis, lumbar region with neurogenic claudication Is this a current diagnosis for this admission?: Yes - Time Time Spent with patient: 35 or more minutes Level of Care: IMCU Medications reviewed and adjusted accordingly: Yes Anticipated discharge: Home
--- NOTE | 2018-12-18 16:08 | RADIOLOGY REPORT (SQ) ---
EXAM DESCRIPTION: CT THORACIC SPINE WITHOUT COMPLETED DATE/TIME: 12/18/2018 3:30 pm REASON FOR STUDY: thoracic spine neuropathy D50.8 OTHER IRON DEFICIENCY ANEMIAS COMPARISON: None. TECHNIQUE: Axial images acquired through the thoracic spine without intravenous contrast. Images re viewed with lung, soft tissue and bone windows. Reconstructed coronal and sagittal MPR images review ed. Images stored on PACS. All CT scanners at this facility use dose modulation, iterative reconstruction, and/or weight based d osing when appropriate to reduce radiation dose to as low as reasonably achievable (ALARA). [facility]: Dose Right [facility]: CareDose [facility]: Dose Right [facility]: Teradose 4D [facility]: [employer] RADIATION DOSE: mGy. LIMITATIONS: None. FINDINGS: VISUALIZED LUNGS: No acute opacities. No pneumothorax. SOFT TISSUES: No soft tissue swelling. No masses. VERTEBRAL BODIES: No fractures. No dislocation. No acute findings. DISCS: Multilevel degenerative disc disease with osteophytes and disc space narrowing. ALIGNMENT: Increased dorsal kyphosis. TRANSVERSE PROCESSES, POSTERIOR ELEMENTS: No fractures. No dislocation. No acute findings. HARDWARE: Neurostimulator tip midthoracic in epidural space. VISUALIZED RIBS: No fractures. OTHER: No other significant finding. IMPRESSION: Degenerative changes. Increased dorsal kyphosis. TECHNICAL DOCUMENTATION: JOB ID: [id number] Quality ID # [id number]: Final reports with documentation of one or more dose reduction techniques (e.g., Au tomated exposure control, adjustment of the mA and/or kV according to patient size, use of iterative reconstruction technique) 2010 [employer]- All Rights Reserved Reading location - IP/workstation name: [email or web address]
--- NOTE | 2018-12-18 16:24 | RADIOLOGY REPORT (SQ) ---
EXAM DESCRIPTION: CT LUMBAR SPINE WITHOUT COMPLETED DATE/TIME: 12/18/2018 3:30 pm REASON FOR STUDY: radiculopathy D50.8 OTHER IRON DEFICIENCY ANEMIAS COMPARISON: None. TECHNIQUE: Axial images acquired through the lumbar spine without intravenous contrast. Images revi ewed with lung, soft tissue and bone windows. Reconstructed coronal and sagittal MPR images reviewe d. All images stored on PACS. All CT scanners at this facility use dose modulation, iterative reconstruction, and/or weight based d osing when appropriate to reduce radiation dose to as low as reasonably achievable (ALARA). [facility]: Dose Right [facility]: CareDose [facility]: Dose Right [facility]: Teradose 4D [facility]: [employer] FINDINGS: VERTEBRAL BODIES: Multilevel lumbar spondylosis. DISCS: Multilevel degenerative disc disease. L1-L2: Lumbar spondylosis. L2-L3: Degenerative disc disease with minimal retrolisthesis of L2 on L3. Facet arthropathy and hype rtrophy. L3-L4: Degenerated circumferential bulging disc with vacuum disc phenomena. Facet arthropathy and hy pertrophy. L4-L5: Changes of a degenerated circumferential bulging disc. Minimal degenerative anterolisthesis o f L4 on L5. Facet arthropathy and hypertrophy. Mild narrowing of the spinal canal at the disc level secondary to facet arthropathy some, circumferential bulging disc, ligamentous thickening. There is evidence of lateral recess stenosis on the right. L5-S1: Pedicle screws and rods from prior fusion at L5-S1. The metallic screw at S1 on the right exte nds through the cortex of the sacrum anteriorly. Laminectomy defect at L5-S1. Disc spacer at L5-S1. HARDWARE: Prior lumbar fusion L5-S1 with rods and screws in place. There are stimulator wires extendi ng into the posterior epidural space at the L1-2 level the directed cephalad. IMPRESSION: 1. There is evidence of multilevel lumbar spondylosis and degenerative disc disease. 2. Findings consistent with mild acquired central canal stenosis at L4-5 and changes of a degenerated circumferential bulging disc. Degenerative anterolisthesis of L4 on L5. Lateral recess stenosis on the right at L4-5. 3. Status post lumbar fusion and laminectomy at L5-S1. TECHNICAL DOCUMENTATION: JOB ID: [id number] Quality ID # [id number]: Final reports with documentation of one or more dose reduction techniques (e.g., Au tomated exposure control, adjustment of the mA and/or kV according to patient size, use of iterative reconstruction technique) 2010 [employer]- All Rights Reserved RADIATION DOSE: 956.09mGy. LIMITATIONS: None. Reading location - IP/workstation name: [email or web address]
[2018-12-18] MEDS: ACYCLOVIR 800 MG TABLET PO SCH ×2 (17:30→21:26)
[2018-12-18] MEDS: PHARMACY COMMUNICATION ORDER MC SCH (21:43)
[2018-12-19] MEDS: HYDROMORPHONE HCL INJ/PF 2 MG/ML AMPULE IV PRN ×5 (03:28→23:59)
[2018-12-19] MEDS: DIPHENHYDRAMINE HCL 50 MG/ML VIAL IV PRN ×4 (03:28→19:47)
[2018-12-19] MEDS: METHYLPREDNISOLONE INJ 40 MG/1 ML SDV IV SCH ×3 (06:55→23:59)
[2018-12-19] MEDS: ACYCLOVIR 800 MG TABLET PO SCH ×3 (08:05→14:17)
[2018-12-19] MEDS: PANTOPRAZOLE SODIUM 40 MG TABLET.DR PO SCH (09:18)
[2018-12-19] MEDS: PREGABALIN 100 MG CAPSULE PO SCH ×2 (09:18→23:58)
[2018-12-19] MEDS: POLYETHYLENE GLYCOL 3350 POWDER 17 GM/1 PACKET PO SCH (09:18)
[2018-12-19] MEDS: LOSARTAN POTASSIUM 50 MG TABLET PO SCH (09:18)
[2018-12-19] MEDS: LIDOCAINE 5% (700 MG) TRANSDERMAL ADH..PATCH TP SCH (09:19)
--- NOTE | 2018-12-19 16:12 | PDOC PROGRESS REPORT ---
Subjective Progress Note for:: 12/19/18 Subjective:: Patient seen by the bedside,The detail of the CAT scan results was explained to patient and the family Reason For Visit: SHINGLES POLYNEUROPATHY Physical Exam Vital Signs: Temp Pulse Resp BP Pulse Ox 98.5 F 71 18 167/72 H 89 L 12/19/18 11:11 12/19/18 14:00 12/19/18 11:11 12/19/18 11:11 12/19/18 11:11 Intake & Output 12/18/18 12/19/18 12/20/18 06:59 06:59 06:59 Intake Total 2053 685 240 Balance 2053 685 240 General appearance: PRESENT: no acute distress Eye exam: PRESENT: PERRLA Respiratory exam: PRESENT: clear to auscultation uyen Cardiovascular exam: PRESENT: +S1, +S2 GI/Abdominal exam: PRESENT: soft Neurological exam: PRESENT: alert Results Laboratory Results: 12/18/18 04:55 12/18/18 04:55 12/14/18 21:35 Creatine Kinase 44 Impressions: Abdomen/Pelvis CT 12/14/18 15:38 IMPRESSION: NO SIGNIFICANT OR ACUTE FINDING IN THE ABDOMEN OR PELVIS ON CT SCAN WITH IV CONTRAST. Lumbar Spine CT 12/18/18 00:00 IMPRESSION: 1. There is evidence of multilevel lumbar spondylosis and degenerative disc disease. 2. Findings consistent with mild acquired central canal stenosis at L4-5 and changes of a degenerated circumferential bulging disc. Degenerative anterolisthesis of L4 on L5. Lateral recess stenosis on the right at L4-5. 3. Status post lumbar fusion and laminectomy at L5-S1. Thoracic Spine CT 12/18/18 00:00 IMPRESSION: Degenerative changes. Increased dorsal kyphosis. Assessment & Plan - Diagnosis (1) Lumbar canal stenosis Qualifiers: Neurogenic claudication status: with neurogenic claudication Qualified Code(s): M48.062 - Spinal stenosis, lumbar region with neurogenic claudication Is this a current diagnosis for this admission?: Yes Plan: The radiculopathy is more likely from spinal canal stenosis and not from shingles polyneuropathy, we discontinue antiviral (2) Spinal stenosis of lumbar region Qualifiers: Neurogenic claudication status: with neurogenic claudication Qualified Code(s): M48.062 - Spinal stenosis, lumbar region with neurogenic claudication Is this a current diagnosis for this admission?: Yes - Time Time Spent with patient: 35 or more minutes Level of Care: IMCU
[2018-12-20] MEDS: DIPHENHYDRAMINE HCL 50 MG/ML VIAL IV PRN ×5 (00:01→17:10)
[2018-12-20] MEDS: PHARMACY COMMUNICATION ORDER MC SCH (01:34)
[2018-12-20] MEDS: HYDROMORPHONE HCL INJ/PF 2 MG/ML AMPULE IV PRN ×4 (04:57→17:09)
[2018-12-20] MEDS: METHYLPREDNISOLONE INJ 40 MG/1 ML SDV IV SCH ×2 (05:04→13:23)
[2018-12-20] MEDS: PANTOPRAZOLE SODIUM 40 MG TABLET.DR PO SCH (09:10)
[2018-12-20] MEDS: PREGABALIN 100 MG CAPSULE PO SCH (09:10)
[2018-12-20] MEDS: LOSARTAN POTASSIUM 50 MG TABLET PO SCH (09:10)
[2018-12-20] MEDS: POLYETHYLENE GLYCOL 3350 POWDER 17 GM/1 PACKET PO SCH (09:11)
[2018-12-20] MEDS: LIDOCAINE 5% (700 MG) TRANSDERMAL ADH..PATCH TP SCH (09:12)
[2018-12-20 17:43] VITALS: BP 172/72
--- NOTE | 2018-12-20 20:18 | PDOC DISCHARGE SUMMARY ---
Impression - Admit/DC Date/PCP Admission Date/Primary Care Provider: 12/17/18 17:10 BRANDEN CROWELL MD Discharge Date: 12/20/18 - Discharge Diagnosis (1) Radiculopathy of lumbosacral region Is this a current diagnosis for this admission?: Yes (2) Lumbar canal stenosis Is this a current diagnosis for this admission?: Yes (3) Spinal stenosis of lumbar region Is this a current diagnosis for this admission?: Yes - Additional Information Referrals: BRANDEN CROWELL MD [Primary Care Provider] - 12/27/18 10:00 am Prescriptions: Hydromorphone HCl [Dilaudid] 8 mg PO Q6H #30 tablet Pregabalin [Lyrica 100 mg Capsule] 300 mg PO Q12 #60 capsule Home Medications: Telmisartan [Micardis 80 mg Tablet] 80 mg PO DAILY 04/23/17 Diclofenac Sodium [Voltaren] 1 applic TP BID 10/02/17 Methylnaltrexone [place] [Relistor Inj/Pf 12 mg/0.6 ml Kit] 12 mg SUBCUT Q2D 05/17/18 Dexlansoprazole [Dexilant 60 mg Capsule] 60 mg PO DAILY 12/14/18 Hydrocodone/Acetaminophen [[place] 7.5-325 mg Tablet] 1 tab PO BIDP PRN 12/14/18 Lidocaine [Lidoderm 5% (700 mg) Transdermal Patch] 1 patch TP DAILY 12/14/18 Polyethylene Glycol 3350 [Gentlelax] 1 dose PO DAILY 12/14/18 Zaleplon 5 mg PO QHS 12/14/18 Hydromorphone HCl [Dilaudid] 8 mg PO Q6H #30 tablet 12/20/18 Pregabalin [Lyrica 100 mg Capsule] 300 mg PO Q12 #60 capsule 12/20/18 History of Present Illiness History of Present Illness: ADRI GARCIA is a 68 year old female she came to the office for evaluation of left flank pain with radiation to the groin, that was last week I suspected kidney stone, I ordered CAT scan for kidney stone protocol, it was negative, she was still treated empirically for kidney stone because the presentation was consistent with renal colic due to kidney stone. She came to the office today complaining of severe pain in the left abdomen, she said she could no longer take it anymore, on examination in the office she was very tender, she was admitted directly from outpatient to the hospital, a CT scan of the abdomen and pelvis with IV contrast was obtained it was negative there was no acute pathology. I am not exactly sure what is causing her pain so far evaluation is showing no particular etiology. 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 There was no rash eruption, the CAT scan abdomen and pelvis with IV contrast was negative for any acute pathology. She was empirically treated with IV acyclovir, Solu-Medrol,Lyrica, pain control with Dilaudid despite this intervention patient condition did not completely CAT scan of the thoracic and lumbar spine was obtained, it demonstrated severe lumbar spine disease with bulging disc, anterolisthesis of L4 over L5It was felt that as symptom is most likely from lumbar spine radiculopathy. Physical Exam Vital Signs: Temp Pulse Resp BP Pulse Ox 98.7 F 66 17 172/72 H 97 12/20/18 17:42 12/20/18 17:42 12/20/18 17:42 12/20/18 17:42 12/20/18 17:42 Intake & Output 12/19/18 12/20/18 12/21/18 06:59 06:59 06:59 Intake Total 910 209 6769 Balance 611 239 2373 Weight 100.6 kg General appearance: PRESENT: no acute distress Eye exam: PRESENT: PERRLA Respiratory exam: PRESENT: clear to auscultation uyen Cardiovascular exam: PRESENT: +S1, +S2 GI/Abdominal exam: PRESENT: soft Neurological exam: PRESENT: alert, CN II-XII grossly intact Results Laboratory Results: WBC 18.2 10^3/uL (4.0-10.5) H 12/18/18 04:55 RBC 4.18 10^6/uL (3.72-5.28) 12/18/18 04:55 Hgb 11.1 g/dL (12.0-15.5) L 12/18/18 04:55 Hct 35.3 % (36.0-47.0) L 12/18/18 04:55 MCV 84 fl (80-97) 12/18/18 04:55 MCH 26.6 pg (27.0-33.4) L 12/18/18 04:55 MCHC 31.5 g/dL (32.0-36.0) L 12/18/18 04:55 RDW 15.0 % (11.5-14.0) H 12/18/18 04:55 Plt Count 273 10^3/uL (150-450) 12/18/18 04:55 Lymph % (Auto) Not Reportable 12/18/18 04:55 [place] % (Auto) Not Reportable 12/18/18 04:55 Eos % (Auto) Not Reportable 12/18/18 04:55 Baso % (Auto) Not Reportable 12/18/18 04:55 Absolute Neuts (auto) Not Reportable 12/18/18 04:55 Absolute Lymphs (auto) Not Reportable 12/18/18 04:55 Absolute Monos (auto) Not Reportable 12/18/18 04:55 Absolute Eos (auto) Not Reportable 12/18/18 04:55 Absolute Basos (auto) Not Reportable 12/18/18 04:55 Total Counted 100 12/18/18 04:55 Seg Neutrophils % Not Reportable 12/18/18 04:55 Seg Neuts % (Manual) 78 % (42-78) 12/18/18 04:55 Band Neutrophils % 7 % (3-5) H 12/18/18 04:55 Lymphocytes % (Manual) 11 % (13-45) L 12/18/18 04:55 Monocytes % (Manual) 4 % (3-13) 12/18/18 04:55 Eosinophils % (Manual) 0 % (0-6) 12/18/18 04:55 Basophils % (Manual) 0 % (0-2) 12/18/18 04:55 Abs Neuts (Manual) 15.5 10^3/uL (1.7-8.2) H 12/18/18 04:55 Abs Lymphs (Manual) 2.0 10^3/uL (0.5-4.7) 12/18/18 04:55 Abs Monocytes (Manual) 0.7 10^3/uL (0.1-1.4) 12/18/18 04:55 Absolute Eos (Manual) 0.0 10^3/uL (0.0-0.6) 12/18/18 04:55 Abs Basophils (Manual) 0.0 10^3/uL (0.0-0.2) 12/18/18 04:55 Platelet Estimate Cancelled 12/17/18 18:00 Platelet Comment ADEQUATE 12/18/18 04:55 Anisocytosis SLIGHT 12/18/18 04:55 ESR Cancelled 12/17/18 18:00 Sodium 144.4 mmol/L (137-145) 12/18/18 04:55 Potassium 4.1 mmol/L (3.6-5.0) 12/18/18 04:55 Chloride 110 mmol/L (98-107) H 12/18/18 04:55 Carbon Dioxide 25 mmol/L (22-30) 12/18/18 04:55 Anion Gap 9 (5-19) 12/18/18 04:55 BUN 11 mg/dL (7-20) 12/18/18 04:55 Creatinine 0.53 mg/dL (0.52-1.25) 12/18/18 04:55 Est GFR ( Amer) > 60 (>60) 12/18/18 04:55 Est GFR (MDRD) Non-Af > 60 (>60) 12/18/18 04:55 Glucose 170 mg/dL (75-110) H 12/18/18 04:55 Calcium 8.9 mg/dL (8.4-10.2) 12/18/18 04:55 Total Bilirubin < 0.1 mg/dL (0.2-1.3) L 12/18/18 04:55 Direct Bilirubin Not Reportable 12/18/18 04:55 Neonat Total Bilirubin Not Reportable 12/18/18 04:55 Neonat Direct Bilirubin Not Reportable 12/18/18 04:55 Neonat Indirect Bili Not Reportable 12/18/18 04:55 AST 22 U/L (14-36) 12/18/18 04:55 ALT 32 U/L (<35) 12/18/18 04:55 Alkaline Phosphatase 103 U/L (38-126) 12/18/18 04:55 Creatine Kinase 44 U/L (30-135) 12/14/18 21:35 Total Protein 6.2 g/dL (6.3-8.2) L 12/18/18 04:55 Albumin 3.5 g/dL (3.5-5.0) 12/18/18 04:55 Amylase 61 U/L (30-110) 12/14/18 16:07 Lipase 94.2 U/L (23-300) 12/14/18 16:07 Urine Color STRAW 12/14/18 16:45 Urine Appearance CLEAR 12/14/18 16:45 Urine pH 7.0 (5.0-9.0) 12/14/18 16:45 Ur Specific [place] 1.010 12/14/18 16:45 Urine Protein NEGATIVE mg/dL (NEGATIVE) 12/14/18 16:45 Urine Glucose (UA) NEGATIVE mg/dL (NEGATIVE) 12/14/18 16:45 Urine Ketones NEGATIVE mg/dL (NEGATIVE) 12/14/18 16:45 Urine Blood NEGATIVE (NEGATIVE) 12/14/18 16:45 Urine Nitrite NEGATIVE (NEGATIVE) 12/14/18 16:45 Urine Bilirubin NEGATIVE (NEGATIVE) 12/14/18 16:45 Urine Urobilinogen NEGATIVE mg/dL (<2.0) 12/14/18 16:45 Ur Leukocyte Esterase NEGATIVE (NEGATIVE) 12/14/18 16:45 Urine WBC (Auto) 1 /HPF 12/14/18 16:45 Urine RBC (Auto) 1 /HPF 12/14/18 16:45 Urine Bacteria (Auto) TRACE /HPF 12/14/18 16:45 Squamous Epi Cells Auto 2 /HPF 12/14/18 16:45 Urine Mucus (Auto) RARE /LPF 12/14/18 16:45 Urine Ascorbic Acid NEGATIVE (NEGATIVE) 12/14/18 16:45 Slides for Path Review Cancelled 12/17/18 18:00 Impressions: Abdomen/Pelvis CT 12/14/18 15:38 IMPRESSION: NO SIGNIFICANT OR ACUTE FINDING IN THE ABDOMEN OR PELVIS ON CT SCAN WITH IV CONTRAST. Lumbar Spine CT 12/18/18 00:00 IMPRESSION: 1. There is evidence of multilevel lumbar spondylosis and degenerative disc disease. 2. Findings consistent with mild acquired central canal stenosis at L4-5 and changes of a degenerated circumferential bulging disc. Degenerative anterolisthesis of L4 on L5. Lateral recess stenosis on the right at L4-5. 3. Status post lumbar fusion and laminectomy at L5-S1. Thoracic Spine CT 12/18/18 00:00 IMPRESSION: Degenerative changes. Increased dorsal kyphosis. Stroke Is this a Stroke Patient?: No Acute Heart Failure - Is this a Heart Failure Patient?: No
== END 2018-12-20 18:18 | disposition home or self-care (01) | DRG 552 ==
LOC: ER 15:17 → EH 16:29 → 3S 17:56 → OBSVTOIN 12-17 17:10
PROVIDERS: ADMIT Internal Medicine; ATTEND Internal Medicine
DX: M48.062 Spinal stenosis, lumbar region with neurogenic claudication (principal); M54.17 Radiculopathy, lumbosacral region; G89.29 Other chronic pain; I10 Essential (primary) hypertension; K21.9 Gastro-esophageal reflux disease without esophagitis; K57.90 Diverticulosis of intestine, part unspecified, without perforation or abscess without bleeding; M19.90 Unspecified osteoarthritis, unspecified site; E78.5 Hyperlipidemia, unspecified; Z90.49 Acquired absence of other specified parts of digestive tract; Z90.710 Acquired absence of both cervix and uterus; Z88.6 Allergy status to analgesic agent; Z79.899 Other long term (current) drug therapy; Z23 Encounter for immunization
CPT/HCPCS: 36415; 72128; 72131; 74177; 80053; 81001; 82150; 82550; 83690; 85025; 90686; 99285; G0378; J0133; J1170; J1200; J2920; J3490; J7030; J7050

== ENCOUNTER 2018-12-27 12:24 | Observation (INO) | payer MEDICARE, OTHER ==
[2018-12-27 14:29] LABS: ABSOLUTE BASOPHILS # (AUTO) 0.1 10^3/uL (0.0-0.2); ABSOLUTE LYMPHOCYTES (AUTO) 1.9 10^3/uL (0.5-4.7); ABSOLUTE MONOCYTES (AUTO) 0.9 10^3/uL (0.1-1.4); ABSOLUTE NEUT (AUTO) 10.7 10^3/uL (1.7-8.2); BASOPHILS % (AUTO) 0.8 % (0-2); EOSINOPHILS % (AUTO) 0.2 % (0-6); HEMATOCRIT 43.8 % (36.0-47.0); HEMOGLOBIN 14.3 g/dL (12.0-15.5); LYMPHOCYTES % (AUTO) 14.1 % (13-45); MEAN CORPUSCULAR HEMOGLOBIN 27.4 pg (27.0-33.4); MEAN CORPUSCULAR HGB CONC 32.6 g/dL (32.0-36.0); MEAN CORPUSCULAR VOLUME 84 fl (80-97); MONOCYTES % (AUTO) 6.5 % (3-13); PLATELET COUNT 305 10^3/uL (150-450); RED BLOOD COUNT 5.22 10^6/uL (3.72-5.28); RED CELL DISTRIBUTION WIDTH 15.6 % (11.5-14.0); SEGMENTED NEUTROPHILS % (AUTO) 78.4 % (42-78); TOTAL CELLS COUNTED % (AUTO) 100 %; WHITE BLOOD COUNT 13.6 10^3/uL (4.0-10.5)
[2018-12-27 14:29] LABS: ARTERIAL BLOOD BASE EXCESS 1.5 mmol/L; ARTERIAL BLOOD H2CO3 0.56 mmol/L (1.05-1.35); ARTERIAL BLOOD HCO3 19.8 mmol/L (20-24); ARTERIAL BLOOD O2 SATURATION 99.1 % (94-98); ARTERIAL BLOOD TOTAL CO2 20.4 mmol/L (21-25)
[2018-12-27 14:30] LABS: ARTERIAL BLOOD FIO2 ROOM AIR
[2018-12-27 14:32] LABS: ARTERIAL BLOOD PCO2 18.7 mmHg (35-45); ARTERIAL BLOOD PH 7.64 (7.35-7.45)
[2018-12-27 14:46] LABS: ALBUMIN 4.7 g/dL (3.5-5.0); ALKALINE PHOSPHATASE 137 U/L (38-126); ANION GAP 15 (5-19); ASPARTATE AMINO TRANSFERASE 39 U/L (14-36); BILIRUBIN,DIRECT 0.2 mg/dL (0.0-0.4); BILIRUBIN,TOTAL 0.6 mg/dL (0.2-1.3); BLOOD UREA NITROGEN 12 mg/dL (7-20); CALCIUM 10.4 mg/dL (8.4-10.2); CARBON DIOXIDE 22 mmol/L (22-30); CHLORIDE 103 mmol/L (98-107); GLUCOSE 121 mg/dL (75-110); POTASSIUM 4.6 mmol/L (3.6-5.0); TOTAL PROTEIN 8.3 g/dL (6.3-8.2)
--- NOTE | 2018-12-27 15:52 | RADIOLOGY REPORT (SQ) ---
EXAM DESCRIPTION: CHEST 2 VIEWS COMPLETED DATE/TIME: 12/27/2018 3:03 pm REASON FOR STUDY: WEAKNESS COMPARISON: 05/11/2018 EXAM PARAMETERS: NUMBER OF VIEWS: two views TECHNIQUE: Digital Frontal and Lateral radiographic views of the chest acquired. RADIATION DOSE: NA LIMITATIONS: none FINDINGS: LUNGS AND PLEURA: No opacities, masses or pneumothorax. No pleural effusion. MEDIASTINUM AND HILAR STRUCTURES: No masses or contour abnormalities. HEART AND VASCULAR STRUCTURES: Heart normal size. No evidence for failure. BONES: No acute findings. HARDWARE: Thoracic neurostimulator unchanged. OTHER: No other significant finding. IMPRESSION: NO ACUTE RADIOGRAPHIC FINDING IN THE CHEST. TECHNICAL DOCUMENTATION: JOB ID: [id number] [employer]- All Rights Reserved Reading location - IP/workstation name: [email or web address]
[2018-12-27 18:50] LABS: APPEARANCE,URINE CLEAR; BILIRUBIN,URINE NEGATIVE (NEGATIVE); COLOR,URINE YELLOW; GLUCOSE, URINE NEGATIVE (NEGATIVE); KETONES,URINE 20 mg/dL (NEGATIVE); LEUKOCYTE ESTERASE,URINE NEGATIVE (NEGATIVE); NITRITE,URINE NEGATIVE (NEGATIVE); PROTEIN,URINE NEGATIVE (NEGATIVE); URINE SPECIFIC GRAVITY 1.028; UROBILINOGEN,URINE NEGATIVE mg/dL (<2.0)
[2018-12-27] MEDS: NORMAL SALINE 1000 ML 1,000 ML IV PRN (19:00)
[2018-12-27 19:15] LABS: CREATINE KINASE MB 0.33 ng/mL (<4.55)
[2018-12-27 19:20] LABS: TROPONIN I < 0.012 ng/mL
[2018-12-27] MEDS ORDERED: ZALEPLON 5 MG PO SCH (22:00)
--- NOTE | 2018-12-27 22:02 | PDOC H&P ---
History of Present Illness Admission Date/PCP: 12/27/18 12:27 BRANDEN CROWELL MD History of Present Illness: ADRI GARCIA is a 68 year old female, She came to the office today with complaint of malaise, poor intake, generalized sense of not feeling well. She was recently admitted to this hospital for evaluation of left flank pain ultimately she was diagnosed with lumbar radiculopathy severe she was discharged home on Lyrica 150 mg p.o. twice daily she has not filled that new prescription. The apparent cause of her symptoms was not clear in the office she is admitted to the hospital for evaluation of her symptoms initial blood work did not demonstrate any significant pathology.The arterial blood gas, pH 7.64, PO2 129, PCO2 18.7, bicarbonate 19.8, this is consistent with respiratory alkalosis, CT scan of the abdomen and pelvis with contrast was obtained, it demonstrated 50 mm complex lesion extending of the mid lower pole of the right kidney Past Medical History Cardiac Medical History: Reports: Hyperlipidema, Hypertension Pulmonary Medical History: Reports: Asthma, Bronchitis, Pneumonia Neurological Medical History: Reports: Migraine GI Medical History: Reports: Gastroesophageal Reflux Disease, Hiatal Hernia Musculoskeltal Medical History: Reports: Arthritis Hematology: Denies: Anemia, Sickle Cell Disease Past Surgical History Past Surgical History: Reports: Appendectomy, Cholecystectomy, Hysterectomy, Orthopedic Surgery - Bilat foot; Bilat shoulder; Bilat knee; Bilat hip, Tonsillectomy, Tubal Ligation Social History Smoking Status: Never Smoker Electronic Cigarette use?: No Frequency of Alcohol Use: None Hx Recreational Drug Use: No Drugs: None Hx Prescription Drug Abuse: No Family History Family History: Reviewed & Not Pertinent Parental Family History Reviewed: Yes Children Family History Reviewed: Yes Sibling(s) Family History Reviewed.: Yes Medication/Allergy Home Medications: Atorvastatin Calcium [Lipitor 20 mg Tablet] 20 mg PO QHS 12/27/18 Dexlansoprazole [Dexilant 60 mg Capsule] 60 mg PO DAILY 12/27/18 Methylnaltrexone [place] [Relistor 12 mg/0.6 ml Vial] 12 mg SUBCUT Q2D 12/27/18 Pregabalin [Lyrica 75 mg Capsule] 75 mg PO Q12@0800,1200 12/27/18 Pregabalin [Lyrica 75 mg Capsule] 150 mg PO QHS 12/27/18 RX: Zaleplon 5 mg PO QHS 12/27/18 Telmisartan [Micardis 80 mg Tablet] 80 mg PO DAILY 12/27/18 Allergies/Adverse Reactions: morphine [Morphine] Allergy (Severe, Verified 12/14/18 15:29) blisters at insertion site of iv,severe nausea aspirin [Aspirin] Adverse Reaction (Intermediate, Verified 12/14/18 15:29) abdominal pain oxycodone [From Percocet] Adverse Reaction (Mild, Verified 12/14/18 15:29) Generalized Itching Review of Systems Constitutional: PRESENT: chills, fatigue. ABSENT: fever(s), headache(s), weight gain, weight loss Eyes: ABSENT: visual disturbances Ears: ABSENT: hearing changes Cardiovascular: ABSENT: chest pain, dyspnea on exertion, edema, orthropnea, palpitations Respiratory: ABSENT: cough, hemoptysis Gastrointestinal: ABSENT: abdominal pain, constipation, diarrhea, hematemesis, hematochezia, nausea, vomiting Genitourinary: ABSENT: dysuria, hematuria Musculoskeletal: ABSENT: joint swelling Integumentary: ABSENT: rash, wounds Neurological: ABSENT: abnormal gait, abnormal speech, confusion, dizziness, focal weakness, syncope Psychiatric: ABSENT: anxiety, depression, homidical ideation, suicidal ideation Endocrine: ABSENT: cold intolerance, heat intolerance, menstrual abnormalities, polydipsia, polyuria Hematologic/Lymphatic: ABSENT: easy bleeding, easy bruising, lymphadenopathy Physical Exam Vital Signs: Temp Pulse Resp BP Pulse Ox 98.6 F 93 16 136/86 H 96 12/27/18 20:05 12/27/18 20:05 12/27/18 20:05 12/27/18 20:05 12/27/18 20:05 Intake & Output 12/26/18 12/27/18 12/28/18 06:59 06:59 06:59 Intake Total 240 Balance 240 Weight 87.6 kg General appearance: PRESENT: mild distress Head exam: PRESENT: atraumatic, normocephalic Eye exam: PRESENT: PERRLA Mouth exam: PRESENT: moist, tongue midline Neck exam: PRESENT: full ROM Respiratory exam: PRESENT: clear to auscultation uyen Cardiovascular exam: PRESENT: RRR, +S1, +S2 Pulses: PRESENT: normal dorsalis pedis pul, +2 pedal pulses bilateral Vascular exam: PRESENT: normal capillary refill GI/Abdominal exam: PRESENT: normal bowel sounds, soft Rectal exam: PRESENT: deferred Neurological exam: PRESENT: alert, CN II-XII grossly intact Psychiatric exam: PRESENT: appropriate affect, normal mood Skin exam: PRESENT: dry, intact, warm Results Laboratory Results: 12/27/18 13:58 12/27/18 13:58 12/27/18 12/27/18 12/27/18 13:58 13:58 14:12 WBC 13.6 H RBC 5.22 Hgb 14.3 Hct 43.8 MCV 84 MCH 27.4 MCHC 32.6 RDW 15.6 H Plt Count 305 Seg Neutrophils % 78.4 H Carbonic Acid 0.56 L HCO3/H2CO3 Ratio 35:1 ABG pH 7.64 H* ABG pCO2 18.7 L* ABG pO2 129.0 H ABG HCO3 19.8 L ABG O2 Saturation 99.1 H ABG Base Excess 1.5 FiO2 ROOM AIR Sodium 140.3 Potassium 4.6 Chloride 103 Carbon Dioxide 22 Anion Gap 15 BUN 12 Creatinine 0.51 L Est GFR ( Amer) > 60 Glucose 121 H Calcium 10.4 H Total Bilirubin 0.6 AST 39 H Alkaline Phosphatase 137 H Total Protein 8.3 H Albumin 4.7 Urine Color Urine Appearance Urine pH Ur Specific [place] Urine Protein Urine Glucose (UA) Urine Ketones Urine Blood Urine Nitrite Ur Leukocyte Esterase Urine WBC (Auto) Urine RBC (Auto) 12/27/18 17:28 WBC RBC Hgb Hct MCV MCH MCHC RDW Plt Count Seg Neutrophils % Carbonic Acid HCO3/H2CO3 Ratio ABG pH ABG pCO2 ABG pO2 ABG HCO3 ABG O2 Saturation ABG Base Excess FiO2 Sodium Potassium Chloride Carbon Dioxide Anion Gap BUN Creatinine Est GFR ( Amer) Glucose Calcium Total Bilirubin AST Alkaline Phosphatase Total Protein Albumin Urine Color YELLOW Urine Appearance CLEAR Urine pH 9.0 Ur Specific [place] 1.028 Urine Protein NEGATIVE Urine Glucose (UA) NEGATIVE Urine Ketones 20 H Urine Blood NEGATIVE Urine Nitrite NEGATIVE Ur Leukocyte Esterase NEGATIVE Urine WBC (Auto) 1 Urine RBC (Auto) 3 12/27/18 12/27/18 18:35 18:35 Creatine Kinase 45 CK-MB (CK-2) 0.33 Troponin I < 0.012 Impressions: Chest X-Ray 12/27/18 00:00 IMPRESSION: NO ACUTE RADIOGRAPHIC FINDING IN THE CHEST. Assessment & Plan - Diagnosis (1) Acute respiratory alkalosis Is this a current diagnosis for this admission?: Yes Plan: This is probably from anxiety (2) Complex renal cyst Is this a current diagnosis for this admission?: Yes (3) Viral syndrome Is this a current diagnosis for this admission?: Yes Plan: Symptoms of malaise is nonspecific probably due to viral syndrome
[2018-12-27] MEDS: PREGABALIN 75 MG CAPSULE PO SCH (22:26)
[2018-12-27] MEDS: TEMAZEPAM 15 MG CAPSULE PO PRN (22:26)
[2018-12-28 03:24] LABS: CREATINE KINASE MB 0.49 ng/mL (<4.55)
[2018-12-28 03:30] LABS: TROPONIN I < 0.012 ng/mL
[2018-12-28] MEDS: PANTOPRAZOLE SODIUM 40 MG TABLET.DR PO SCH (05:12)
--- NOTE | 2018-12-28 08:40 | RADIOLOGY REPORT (SQ) ---
EXAM DESCRIPTION: CT ABD/PELVIS WITH IV ONLY COMPLETED DATE/TIME: 12/27/2018 5:50 pm REASON FOR STUDY: ABDOMINAL PAIN COMPARISON: 12/14/2018 TECHNIQUE: CT scan of the abdomen and pelvis performed using helical scanning technique with dynamic intravenous contrast injection. No oral contrast. Images reviewed with lung, soft tissue, and bone windows. Reconstructed coronal and sagittal MPR images reviewed. Delayed images for evaluation of the urinary system also acquired. All images stored on PACS. All CT scanners at this facility use dose modulation, iterative reconstruction, and/or weight based d osing when appropriate to reduce radiation dose to as low as reasonably achievable (ALARA). [facility]: Dose Right [facility]: CareDose [facility]: Dose Right [facility]: Teradose 4D [facility]: Nuovo Wind CONTRAST TYPE AND DOSE: contrast/concentration: Isovue 350.00 mg/ml; Total Contrast Delivered: 100.0 ml; Total Saline Delivered: 29.9 ml RENAL FUNCTION: Creatinine 0.51 RADIATION DOSE: CT Rad equipment meets quality standard of care and radiation dose reduction techniq ues were employed. CTDIvol: 17.0 - 19.7 mGy. DLP: 1959 mGy-cm.. LIMITATIONS: None. FINDINGS: LOWER CHEST: No significant findings. No nodules or infiltrates. LIVER: Normal size. No masses. No dilated ducts. SPLEEN: Normal size. No focal lesions. PANCREAS: No masses. No significant calcifications. No adjacent inflammation or peripancreatic fluid collections. Pancreatic duct not dilated. GALLBLADDER: Surgically absent. ADRENAL GLANDS: No significant masses or asymmetry. RIGHT KIDNEY AND URETER: 15 mm complex lesion extending off the medial lower pole right kidney (serie s 3, image 35), stable from prior and from MR dated 09/20/2014. No definite calcifications. Increas ed density within the calices felt to represent contrast. No hydronephrosis or hydroureter. LEFT KIDNEY AND URETER: No solid masses. No definite calcifications. Increased density within the calices felt to represent contrast. No hydronephrosis or hydroureter. AORTA AND VESSELS: No aneurysm. No dissection. Renal arteries, SMA, celiac without stenosis. RETROPERITONEUM: No retroperitoneal adenopathy, hemorrhage or masses. BOWEL AND PERITONEAL CAVITY: Scattered colonic diverticula. No focal bowel wall thickening. No evid ence of intestinal obstruction. APPENDIX: Not identified. PELVIS: Partially obscured from hip arthroplasty artifact. Bladder is decompressed. ABDOMINAL WALL: No masses. No hernias. BONES: No acute bony abnormality. No discrete lytic or blastic osseous lesions. Lower lumbar the sa cral posterior fusion hardware. Partially visualized hip arthroplasties. OTHER: Spinal stimulator device with leads at the level of the thoracolumbar junction. IMPRESSION: 1. No evidence of acute intra-abdominal process or findings to explain patient's sympto ms. 2. Complex 15 mm lesion extending off the medial lower pole right kidney. Stable to priors and dati ng back to MR dated 09/20/2014, likely complex cyst. TECHNICAL DOCUMENTATION: JOB ID: [id number] Quality ID # [id number]: Final reports with documentation of one or more dose reduction techniques (e.g., Au tomated exposure control, adjustment of the mA and/or kV according to patient size, use of iterative reconstruction technique) 2010 [employer]- All Rights Reserved Reading location - IP/workstation name: [email or web address]
[2018-12-28] MEDS: NORMAL SALINE 1000 ML 1,000 ML IV PRN (09:23)
[2018-12-28] MEDS: LOSARTAN POTASSIUM 50 MG TABLET PO SCH (09:24)
[2018-12-28] MEDS: PREGABALIN 75 MG CAPSULE PO SCH ×2 (09:24→11:55)
--- NOTE | 2018-12-28 09:38 | EKG REPORT ---
SEVERITY:- ABNORMAL ECG - SINUS RHYTHM LEFT VENTRICULAR HYPERTROPHY : Confirmed by: Lovely Jack 28-Dec-2018 09:37:45
[2018-12-28 11:42] LABS: ALBUMIN 4.2 g/dL (3.5-5.0); ALKALINE PHOSPHATASE 120 U/L (38-126); ANION GAP 15 (5-19); ASPARTATE AMINO TRANSFERASE 29 U/L (14-36); BILIRUBIN,DIRECT 0.2 mg/dL (0.0-0.4); BILIRUBIN,TOTAL 0.6 mg/dL (0.2-1.3); BLOOD UREA NITROGEN 12 mg/dL (7-20); CALCIUM 9.6 mg/dL (8.4-10.2); CARBON DIOXIDE 19 mmol/L (22-30); CHLORIDE 106 mmol/L (98-107); GLUCOSE 131 mg/dL (75-110); TOTAL PROTEIN 7.4 g/dL (6.3-8.2)
[2018-12-28 12:12] LABS: TROPONIN I < 0.012 ng/mL
[2018-12-28 13:37] LABS: ABSOLUTE BASOPHILS # (AUTO) 0.1 10^3/uL (0.0-0.2); ABSOLUTE EOSINOPHILS # (AUTO) 0.1 10^3/uL (0.0-0.6); ABSOLUTE LYMPHOCYTES (AUTO) 2.2 10^3/uL (0.5-4.7); ABSOLUTE MONOCYTES (AUTO) 1.1 10^3/uL (0.1-1.4); ABSOLUTE NEUT (AUTO) 9.1 10^3/uL (1.7-8.2); BASOPHILS % (AUTO) 0.8 % (0-2); EOSINOPHILS % (AUTO) 0.5 % (0-6); HEMOGLOBIN 13.1 g/dL (12.0-15.5); LYMPHOCYTES % (AUTO) 17.6 % (13-45); MEAN CORPUSCULAR HEMOGLOBIN 27.2 pg (27.0-33.4); MEAN CORPUSCULAR HGB CONC 32.7 g/dL (32.0-36.0); MEAN CORPUSCULAR VOLUME 83 fl (80-97); MONOCYTES % (AUTO) 8.4 % (3-13); PLATELET COUNT 275 10^3/uL (150-450); RED BLOOD COUNT 4.81 10^6/uL (3.72-5.28); RED CELL DISTRIBUTION WIDTH 15.4 % (11.5-14.0); SEGMENTED NEUTROPHILS % (AUTO) 72.7 % (42-78); TOTAL CELLS COUNTED % (AUTO) 100 %; WHITE BLOOD COUNT 12.6 10^3/uL (4.0-10.5)
[2018-12-28] MEDS ORDERED: INFLUENZA QUAD (6MOS+) 2019-20 VAC 0.5 ML SYR IM ONE (15:20)
[2018-12-28] MEDS: TEMAZEPAM 15 MG CAPSULE PO PRN (21:13)
[2018-12-29] MEDS: PANTOPRAZOLE SODIUM 40 MG TABLET.DR PO SCH (05:30)
[2018-12-29] MEDS: NORMAL SALINE 1000 ML 1,000 ML IV PRN ×2 (05:32→21:19)
[2018-12-29] MEDS: LOSARTAN POTASSIUM 50 MG TABLET PO SCH (09:17)
[2018-12-29] MEDS: PREGABALIN 75 MG CAPSULE PO SCH ×2 (09:18→12:00)
[2018-12-29 10:03] LABS: C DIFFICILE GDH NEGATIVE (NEGATIVE)
--- NOTE | 2018-12-29 14:34 | PDOC PROGRESS REPORT ---
Subjective Progress Note for:: 12/29/18 Subjective:: Patient was admitted for the evaluation of multiple complaints including malaise, today she complained of none specific abdominal pain, she stated that she recently had a colonoscopy, I do not have the results of the colonoscopy, this was done outpatient by nonmedical staff of the hospital, we will try to get records if possible I will consult with the surgeon for evaluation. The recent CAT scan of the abdomen and pelvis with contrast that was done on this admission demonstrated a complex cyst of the right kidney which was not apparent from the CT scan that was just done last month Reason For Visit: GENERAL BODY ACHES Physical Exam Vital Signs: Temp Pulse Resp BP Pulse Ox 98.0 F 66 17 122/83 98 12/29/18 11:40 12/29/18 11:40 12/29/18 11:40 12/29/18 11:40 12/29/18 11:40 Intake & Output 12/28/18 12/29/18 12/30/18 06:59 06:59 06:59 Intake Total 440 2163 Balance 440 2163 Weight 87.6 kg 87.5 kg General appearance: PRESENT: no acute distress Eye exam: PRESENT: PERRLA Respiratory exam: PRESENT: chest wall tenderness Cardiovascular exam: PRESENT: +S1, +S2 GI/Abdominal exam: PRESENT: soft Neurological exam: PRESENT: alert Results Laboratory Results: 12/28/18 12:55 12/28/18 10:22 12/27/18 17:28 Clean Catch Midstream Urine Culture - Final Mixed Skin. Possible Pathogen 12/27/18 12/27/18 12/28/18 18:35 18:35 02:11 Creatine Kinase 45 35 CK-MB (CK-2) 0.33 Troponin I < 0.012 12/28/18 12/28/18 12/28/18 02:11 10:22 10:22 Creatine Kinase 39 CK-MB (CK-2) 0.49 0.50 Troponin I < 0.012 < 0.012 Impressions: Abdomen/Pelvis CT 12/27/18 00:00 IMPRESSION: 1. No evidence of acute intra-abdominal process or findings to explain patient's symptoms. 2. Complex 15 mm lesion extending off the medial lower pole right kidney. Stable to priors and dating back to MR dated 09/20/2014, likely complex cyst. Chest X-Ray 12/27/18 00:00 IMPRESSION: NO ACUTE RADIOGRAPHIC FINDING IN THE CHEST. Assessment & Plan - Diagnosis (1) Acute respiratory alkalosis Is this a current diagnosis for this admission?: Yes (2) Complex renal cyst Is this a current diagnosis for this admission?: Yes (3) Viral syndrome Is this a current diagnosis for this admission?: Yes (4) Nonspecific abdominal pain Is this a current diagnosis for this admission?: Yes Plan: Obtain surgical consultation for evaluation - Time Time Spent with patient: 25-34 minutes Level of Care: TELE
[2018-12-29 15:38] LABS: FREE T4 (FREE THYROXINE) 1.26 ng/dL (0.78-2.19)
[2018-12-29 15:52] LABS: THYROID STIMULATING HORMONE 0.04 uIU/mL (0.47-4.68)
--- NOTE | 2018-12-29 19:50 | PDOC CONSULTATION ---
Consultation Consult Date: 12/29/18 Provider Consulted: OSCAR DIEGO Consult reason:: Abdominal pains History of Present Illness Admission Date/PCP: 12/27/18 12:27 BRANDEN CROWELL MD History of Present Illness: ADRI GARCIA is a 68 year old female who was admitted for malaise, poor ap petite and just not feeling well. She also claims she is having diarrhea although is seems to be subsiding at this time. She claims her lower abdominal pains also started when she had the diarrhea but now it is getting better. She had a CAT scan of the abdomen which was unremarkable except for 15mm cystic lesion on the mid lower pole of the right kidney. This was compared or this was also noted on the one done on 2014 which is essentially unchanged. This will make it most likely a benign lesion. Past Medical History Cardiac Medical History: Reports: Hyperlipidema, Hypertension Denies: Coronary Artery Disease, Myocardial Infarction Pulmonary Medical History: Reports: Asthma, Bronchitis, Pneumonia Denies: Chronic Obstructive Pulmonary Disease (COPD), Tuberculosis Neurological Medical History: Reports: Migraine Denies: Seizures GI Medical History: Reports: Gastroesophageal Reflux Disease, Hiatal Hernia Denies: Hepatitis Musculoskeltal Medical History: Reports: Arthritis Psychiatric Medical History: Denies: Depression Hematology: Denies: Anemia, Sickle Cell Disease Past Surgical History Past Surgical History: Reports: Appendectomy, Cholecystectomy, Hysterectomy, Orthopedic Surgery - Bilat foot; Bilat shoulder; Bilat knee; Bilat hip, Tonsill ectomy, Tubal Ligation Denies: Amputation, Mastectomy, Pacemaker Social History Smoking Status: Never Smoker Electronic Cigarette use?: No Frequency of Alcohol Use: None Hx Recreational Drug Use: No Drugs: None Hx Prescription Drug Abuse: No Family History Family History: Reviewed & Not Pertinent Parental Family History Reviewed: Yes Children Family History Reviewed: No Sibling(s) Family History Reviewed.: No Medication/Allergy Home Medications: Atorvastatin Calcium [Lipitor 20 mg Tablet] 20 mg PO QHS 12/27/18 Dexlansoprazole [Dexilant 60 mg Capsule] 60 mg PO DAILY 12/27/18 Methylnaltrexone [place] [Relistor 12 mg/0.6 ml Vial] 12 mg SUBCUT Q2D 12/27/18 Pregabalin [Lyrica 75 mg Capsule] 75 mg PO Q12@0800,1200 12/27/18 Pregabalin [Lyrica 75 mg Capsule] 150 mg PO QHS 12/27/18 Telmisartan [Micardis 80 mg Tablet] 80 mg PO DAILY 12/27/18 Zaleplon 5 mg PO QHS 12/27/18 Allergies/Adverse Reactions: morphine [Morphine] Allergy (Severe, Verified 12/14/18 15:29) blisters at insertion site of iv,severe nausea aspirin [Aspirin] Adverse Reaction (Intermediate, Verified 12/14/18 15:29) abdominal pain oxycodone [From Percocet] Adverse Reaction (Mild, Verified 12/14/18 15:29) Generalized Itching Review of Systems Constitutional: PRESENT: other - Denies any fever no chills Cardiovascular: PRESENT: other - No chest pains or cough Gastrointestinal: PRESENT: abdominal pain - crampy associated with diarrhea but improving now that the diarrhea appears to be getting less Physical Exam Vital Signs: Temp Pulse Resp BP Pulse Ox 97.6 F 71 17 168/65 H 98 12/29/18 16:09 12/29/18 16:09 12/29/18 16:09 12/29/18 16:09 12/29/18 16:09 Intake & Output 12/28/18 12/29/18 12/30/18 06:59 06:59 06:59 Intake Total 440 2163 924 Balance 440 2163 924 Weight 87.6 kg 87.5 kg 87.5 kg General appearance: PRESENT: no acute distress Head exam: PRESENT: atraumatic Mouth exam: PRESENT: moist Neck exam: PRESENT: full ROM Respiratory exam: PRESENT: clear to auscultation uyen Cardiovascular exam: PRESENT: RRR Pulses: PRESENT: normal radial pulses Vascular exam: PRESENT: normal capillary refill GI/Abdominal exam: PRESENT: soft - Very mild tenderness in both lower quadrants Rectal exam: PRESENT: deferred Neurological exam: PRESENT: alert, oriented to person, oriented to place, orie nted to time, oriented to situation Results Laboratory Results: 12/28/18 12:55 12/28/18 10:22 12/28/18 10:22 TSH 0.04 L Free T4 1.26 12/27/18 17:28 Clean Catch Midstream Urine Culture - Final Mixed Skin. Possible Pathogen 12/27/18 12/27/18 12/28/18 18:35 18:35 02:11 Creatine Kinase 45 35 CK-MB (CK-2) 0.33 Troponin I < 0.012 12/28/18 12/28/18 12/28/18 02:11 10:22 10:22 Creatine Kinase 39 CK-MB (CK-2) 0.49 0.50 Troponin I < 0.012 < 0.012 Impressions: Abdomen/Pelvis CT 12/27/18 00:00 IMPRESSION: 1. No evidence of acute intra-abdominal process or findings to explain patient's symptoms. 2. Complex 15 mm lesion extending off the medial lower pole right kidney. Stable to priors and dating back to MR dated 09/20/2014, likely complex cyst. Chest X-Ray 12/27/18 00:00 IMPRESSION: NO ACUTE RADIOGRAPHIC FINDING IN THE CHEST. Assessment & Plan - Diagnosis (1) Gastroenteritis Is this a current diagnosis for this admission?: Yes - Time Time Spent: 30 to 50 Minutes - Inpatient Certification Medical Necessity: Need For IV Fluids - Plan Summary Plan Summary: This is 68-year-old female complaining of lower abdominal crampy pains associated with diarrhea. Since that the diarrhea is getting better her abdominal pain is also appears to be subsiding. She had a CAT scan of the abdomen which was negative except for incidental finding of a 15mm cystic lesion in the right lower pole kidney which apparently has not changed since the last CAT scan done on 2014. This will make it more benign lesion. Plans: I would continue with supportive measures including IV fluids. Her abdominal pain should subside with the resolution of the gastroenteritis. We will sign off. Call us for further questions.
[2018-12-30] MEDS: PANTOPRAZOLE SODIUM 40 MG TABLET.DR PO SCH (05:13)
[2018-12-30] MEDS ORDERED: ONDANSETRON 4 MG TAB.RAPDIS PO PRN (09:58)
[2018-12-30] MEDS: TRAMADOL HCL 50 MG TABLET PO PRN ×2 (10:57→18:10)
[2018-12-30] MEDS: PREGABALIN 75 MG CAPSULE PO SCH ×2 (10:57→13:53)
[2018-12-30] MEDS: LOSARTAN POTASSIUM 50 MG TABLET PO SCH (10:58)
--- NOTE | 2018-12-30 21:54 | PDOC TRANSFER SUMMARY ---
General Admission Date/PCP: 12/27/18 12:27 BRANDEN CROWELL MD - Transfer Diagnosis (1) Complex renal cyst Is this a current diagnosis for this admission?: Yes (2) Acute respiratory alkalosis Is this a current diagnosis for this admission?: Yes (3) Nonspecific abdominal pain Is this a current diagnosis for this admission?: Yes - Transfer Medications Home Medications: Atorvastatin Calcium [Lipitor 20 mg Tablet] 20 mg PO QHS 12/27/18 Dexlansoprazole [Dexilant 60 mg Capsule] 60 mg PO DAILY 12/27/18 Methylnaltrexone [place] [Relistor 12 mg/0.6 ml Vial] 12 mg SUBCUT Q2D 12/27/18 Pregabalin [Lyrica 75 mg Capsule] 75 mg PO Q12@0800,1200 12/27/18 Pregabalin [Lyrica 75 mg Capsule] 150 mg PO QHS 12/27/18 Telmisartan [Micardis 80 mg Tablet] 80 mg PO DAILY 12/27/18 Zaleplon 5 mg PO QHS 12/27/18 Transfer Medications: Current Medications Hydromorphone HCl (Dilaudid Inj/Pf 2 Mg/Ml Ampule) 1 mg IV Q4HP PRN PRN Reason: FOR PAIN Stop: 01/06/19 21:48 Losartan Potassium (Cozaar 50 Mg Tablet) 100 mg PO DAILY [facility] Stop: 01/27/19 09:59 Last Admin: 12/30/18 10:58 Dose: 100 mg Documented by: Ondansetron HCl (Zofran Odt 4 Mg Tablet) 4 mg PO Q6HP PRN PRN Reason: NAUSEA Stop: 01/29/19 09:57 Last Admin: 12/30/18 10:58 Dose: 4 mg Documented by: Pantoprazole Sodium (Protonix [address] Tablet) 40 mg PO Q6AM [facility] Stop: 01/27/19 05:59 Last Admin: 12/30/18 05:13 Dose: Not Given Documented by: Patient Own Medication (Zaleplon [Zaleplon]) 5 mg PO QHS [facility] Stop: 01/26/19 21:59 Pregabalin (Lyrica 75 Mg Capsule) 75 mg PO Q12@0800,1200 [facility] Stop: 01/26/19 21:59 Last Admin: 12/30/18 13:53 Dose: 75 mg Documented by: Temazepam (Restoril 15 Mg Capsule) 15 mg PO HSP PRN PRN Reason: SLEEP OR INSOMNIA Stop: 01/03/19 21:58 Last Admin: 12/28/18 21:13 Dose: 15 mg Documented by: Tramadol HCl (Ultram 50 Mg Tablet) 50 mg PO Q6HP PRN PRN Reason: PAIN Stop: 01/06/19 09:57 Last Admin: 12/30/18 18:10 Dose: 50 mg Documented by: - Allergies Allergies/Adverse Reactions: morphine [Morphine] Allergy (Severe, Verified 12/14/18 15:29) blisters at insertion site of iv,severe nausea aspirin [Aspirin] Adverse Reaction (Intermediate, Verified 12/14/18 15:29) abdominal pain oxycodone [From Percocet] Adverse Reaction (Mild, Verified 12/14/18 15:29) Generalized Itching Hospital Course Hospital Course: Patient was admitted when she presented with pain in the right flank and feeling unwell, CT scan of the abdomen and pelvis with contrast demonstrated a complex cyst that measure 1.5 cm in the kidney. There was no hematuria no pyuria there is mild leukocytosis. There is no urology service presently in this hospital. Patient has been transferred to tertiary care for evaluation. Physical Exam Vital Signs: Temp Pulse Resp BP Pulse Ox 97.8 F 66 17 137/64 H 96 12/30/18 16:38 12/30/18 16:38 12/30/18 16:38 12/30/18 16:38 12/30/18 16:38 Intake & Output 12/29/18 12/30/18 12/31/18 06:59 06:59 06:59 Intake Total 2163 2881 474 Output Total 0 Balance 2163 2881 474 Weight 87.5 kg 89.8 kg Head exam: PRESENT: atraumatic, normocephalic Eye exam: PRESENT: conjunctiva pink, EOMI, PERRLA Ear exam: PRESENT: normal external ear exam Mouth exam: PRESENT: moist, tongue midline Respiratory exam: PRESENT: clear to auscultation uyen Cardiovascular exam: PRESENT: RRR, +S1, +S2 Pulses: PRESENT: normal dorsalis pedis pul Vascular exam: PRESENT: normal capillary refill GI/Abdominal exam: PRESENT: normal bowel sounds, soft, tenderness Rectal exam: PRESENT: deferred Extremities exam: PRESENT: full ROM Neurological exam: PRESENT: alert, awake, oriented to person, oriented to place, oriented to time, oriented to situation, CN II-XII grossly intact Psychiatric exam: PRESENT: appropriate affect, normal mood Skin exam: PRESENT: dry, intact, warm Results Laboratory Results: 12/28/18 12:55 12/28/18 10:22 12/27/18 12/27/18 12/28/18 18:35 18:35 02:11 Creatine Kinase 45 35 CK-MB (CK-2) 0.33 Troponin I < 0.012 12/28/18 12/28/18 12/28/18 02:11 10:22 10:22 Creatine Kinase 39 CK-MB (CK-2) 0.49 0.50 Troponin I < 0.012 < 0.012 Impressions: Abdomen/Pelvis CT 12/27/18 00:00 IMPRESSION: 1. No evidence of acute intra-abdominal process or findings to explain patient's symptoms. 2. Complex 15 mm lesion extending off the medial lower pole right kidney. Stable to priors and dating back to MR dated 09/20/2014, likely complex cyst. Chest X-Ray 12/27/18 00:00 IMPRESSION: NO ACUTE RADIOGRAPHIC FINDING IN THE CHEST.
[2018-12-31] MEDS: HYDROMORPHONE HCL INJ/PF 2 MG/ML AMPULE IV PRN ×3 (00:27→09:21)
[2018-12-31] MEDS: DIPHENHYDRAMINE HCL 50 MG/ML VIAL IV PRN ×2 (00:28→08:04)
[2018-12-31] MEDS: TRAMADOL HCL 50 MG TABLET PO PRN ×2 (02:49→08:33)
[2018-12-31] MEDS: PANTOPRAZOLE SODIUM 40 MG TABLET.DR PO SCH (05:02)
[2018-12-31] MEDS: PREGABALIN 75 MG CAPSULE PO SCH (08:04)
[2018-12-31] MEDS: LOSARTAN POTASSIUM 50 MG TABLET PO SCH (09:50)
[2018-12-31 10:17] VITALS: BP 136/69
== END 2018-12-31 10:09 | disposition short-term general hospital (02) ==
LOC: LAB 12:24 → 5 12:27 → INTOOBSV 12:27
PROVIDERS: ADMIT Internal Medicine; ATTEND Internal Medicine
DX: N28.1 Cyst of kidney, acquired (principal); E87.3 Alkalosis; R10.9 Unspecified abdominal pain; D72.829 Elevated white blood cell count, unspecified; R19.7 Diarrhea, unspecified; R63.0 Anorexia; R53.81 Other malaise; B34.9 Viral infection, unspecified; M19.90 Unspecified osteoarthritis, unspecified site; E78.5 Hyperlipidemia, unspecified; I10 Essential (primary) hypertension; K21.9 Gastro-esophageal reflux disease without esophagitis; Z79.899 Other long term (current) drug therapy; Z90.49 Acquired absence of other specified parts of digestive tract; Z90.710 Acquired absence of both cervix and uterus; Z98.51 Tubal ligation status
CPT/HCPCS: 36415 ×2; 87040; 87086; 84439; 82553 ×2; 82803; 82550 ×2; 83690; 84443; 85025 ×2; 80076; 80048; 80053; 81001; 84484 ×2; 87324; 87449; 71046; 74177; 93005; 93010; 36600; 97116; 97161; G0378 ×5; G0379; A9270 ×15; J1200; J1170; J7030 ×3; J3490; S0119

== ENCOUNTER → 2019-03-11 | Outpatient (CLI) | payer MEDICARE, OTHER ==
--- NOTE | 2019-03-14 11:41 | WOMENS IMAGING REPORT ---
EXAM DESCRIPTION: 3D SCREENING MAMMO BILAT COMPLETED DATE/TIME: 03/11/2019 11:06 am REASON FOR STUDY: Z12.31 ENCOUNTER FOR SCREENING MAMMOGRAM FOR MALIGNANT NEOPLASM OF BREAST Z12.31 ENCNTR SCREEN MAMMOGRAM FOR MALIGNANT NEOPLASM OF [place] COMPARISON: Multiple since 2008 EXAM PARAMETERS: Standard craniocaudal and mediolateral oblique views of each breast recorded using digital acquisition and breast tomosynthesis. Read with the assistance of CAD. .[facility] Business Proposal Rep Version 9.2 LIMITATIONS: None. FINDINGS: Findings present which are benign by mammographic criteria. No suspicious masses, calcific ations or architectural distortion. Pertinent benign findings: Benign bilateral breast parenchymal and vascular calcifications Benign mammographic findings may include one or more of the following: Smooth masses, popcorn/rim/coa rse calcifications, asymmetries, post-procedure changes, and lesions with long-standing stability. IMPRESSION: BENIGN MAMMOGRAPHIC FINDINGS. BIRADS 2 BREAST DENSITY: b. There are scattered areas of fibroglandular density. BIRAD: ASSESSMENT: 2 BENIGN FINDING(S) RECOMMENDATION: ROUTINE SCREENING Please continue yearly bilateral screening mammography/tomosynthesis in February 2020 COMMENT: The patient has been notified of the results by letter per MQSA requirements. Additional no tification policies are in place for contacting patient with suspicious or incomplete findings. Quality ID #225: The [employer] recommends an annual screening mammogram for women aged 40 years or over. This facility utilizes a reminder system to ensure that all patients receive reminder letters, and/or direct phone calls for appointments. This includes reminders for routine scr eening mammograms, diagnostic mammograms, or other Breast Imaging Interventions when appropriate. Th is patient will be placed in the appropriate reminder system. TECHNICAL DOCUMENTATION: FINDING NUMBER: (1) ASSESSMENT: (1) JOB ID: [id number] [employer]- All Rights Reserved Reading location - IP/workstation name: [email or web address]
== END ==
LOC: WI 10:36
PROVIDERS: ATTEND Obstetrics & Gynecology Gynecology
DX: Z12.31 Encounter for screening mammogram for malignant neoplasm of breast (principal)
CPT/HCPCS: 77063; 77067

== ENCOUNTER → 2019-09-05 | Outpatient (CLI) | payer MEDICARE, OTHER ==
[2019-09-05 12:03] LABS: APPEARANCE,URINE CLEAR; BILIRUBIN,URINE NEGATIVE (NEGATIVE); COLOR,URINE YELLOW; GLUCOSE, URINE NEGATIVE (NEGATIVE); KETONES,URINE NEGATIVE (NEGATIVE); LEUKOCYTE ESTERASE,URINE NEGATIVE (NEGATIVE); NITRITE,URINE NEGATIVE (NEGATIVE); PROTEIN,URINE NEGATIVE (NEGATIVE); URINE SPECIFIC GRAVITY 1.011; UROBILINOGEN,URINE NEGATIVE mg/dL (<2.0)
[2019-09-05 12:23] LABS: HEMOGLOBIN 13.5 g/dL (12.0-15.5); MEAN CORPUSCULAR VOLUME 85 fl (80-97); PLATELET COUNT 224 10^3/uL (150-450); RED BLOOD COUNT 4.83 10^6/uL (3.72-5.28); RED CELL DISTRIBUTION WIDTH 15.7 % (11.5-14.0); WHITE BLOOD COUNT 9.2 10^3/uL (4.0-10.5)
[2019-09-05 13:01] LABS: ALBUMIN 4.9 g/dL (3.5-5.0); ALKALINE PHOSPHATASE 102 U/L (38-126); ANION GAP 10 (5-19); ASPARTATE AMINO TRANSFERASE 31 U/L (14-36); BILIRUBIN,DIRECT 0.1 mg/dL (0.0-0.4); BILIRUBIN,TOTAL 0.7 mg/dL (0.2-1.3); BLOOD UREA NITROGEN 9 mg/dL (7-20); CALCIUM 10.2 mg/dL (8.4-10.2); CARBON DIOXIDE 28 mmol/L (22-30); CHLORIDE 102 mmol/L (98-107); CHOLESTEROL 161.29 mg/dL (0-200); GLUCOSE 136 mg/dL (75-110); POTASSIUM 4.9 mmol/L (3.6-5.0); TRIGLYCERIDES 212 mg/dL (<150); URIC ACID 5.4 mg/dL (2.5-7.5)
[2019-09-05 13:12] LABS: DIRECT LDL 87 mg/dL (<100)
[2019-09-05 13:14] LABS: VLDL CHOLESTEROL 42.4 mg/dL (10-31)
[2019-09-06 13:37] LABS: CREATININE URINE 93.7 mg/dL (Not Estab.); MICROALBUMIN URINE 3.5 ug/mL (Not Estab.)
== END ==
LOC: OD 11:07
PROVIDERS: ATTEND Internal Medicine
DX: I10 Essential (primary) hypertension (principal); E78.5 Hyperlipidemia, unspecified; R05 Cough
CPT/HCPCS: 36415; 80053; 80061; 81001; 82043; 82570; 84439; 84443; 84550; 85027; 86900; 86901

== ENCOUNTER → 2019-09-09 | Outpatient (CLI) | payer MEDICARE, OTHER ==
[2019-09-09 13:20] LABS: ABSOLUTE EOSINOPHILS # (AUTO) 0.1 10^3/uL (0.0-0.6); ABSOLUTE LYMPHOCYTES (AUTO) 2.5 10^3/uL (0.5-4.7); ABSOLUTE MONOCYTES (AUTO) 0.7 10^3/uL (0.1-1.4); ABSOLUTE NEUT (AUTO) 6.5 10^3/uL (1.7-8.2); BASOPHILS % (AUTO) 0.3 % (0-2); EOSINOPHILS % (AUTO) 0.8 % (0-6); HEMATOCRIT 41.9 % (36.0-47.0); HEMOGLOBIN 13.8 g/dL (12.0-15.5); LYMPHOCYTES % (AUTO) 25.8 % (13-45); MEAN CORPUSCULAR HEMOGLOBIN 27.9 pg (27.0-33.4); MEAN CORPUSCULAR HGB CONC 32.9 g/dL (32.0-36.0); MEAN CORPUSCULAR VOLUME 85 fl (80-97); MONOCYTES % (AUTO) 7.3 % (3-13); PLATELET COUNT 205 10^3/uL (150-450); RED BLOOD COUNT 4.92 10^6/uL (3.72-5.28); RED CELL DISTRIBUTION WIDTH 15.7 % (11.5-14.0); SEGMENTED NEUTROPHILS % (AUTO) 65.8 % (42-78); TOTAL CELLS COUNTED % (AUTO) 100 %; WHITE BLOOD COUNT 9.9 10^3/uL (4.0-10.5)
[2019-09-09 13:22] LABS: APPEARANCE,URINE CLEAR; BILIRUBIN,URINE NEGATIVE (NEGATIVE); COLOR,URINE YELLOW; GLUCOSE, URINE NEGATIVE (NEGATIVE); KETONES,URINE NEGATIVE (NEGATIVE); LEUKOCYTE ESTERASE,URINE NEGATIVE (NEGATIVE); NITRITE,URINE NEGATIVE (NEGATIVE); PROTEIN,URINE NEGATIVE (NEGATIVE); URINE SPECIFIC GRAVITY 1.018; UROBILINOGEN,URINE NEGATIVE mg/dL (<2.0)
[2019-09-09 13:54] LABS: ALBUMIN 4.8 g/dL (3.5-5.0); ALKALINE PHOSPHATASE 95 U/L (38-126); ANION GAP 10 (5-19); ASPARTATE AMINO TRANSFERASE 28 U/L (14-36); BILIRUBIN,TOTAL 0.7 mg/dL (0.2-1.3); BLOOD UREA NITROGEN 14 mg/dL (7-20); CALCIUM 10.2 mg/dL (8.4-10.2); CARBON DIOXIDE 26 mmol/L (22-30); CHLORIDE 102 mmol/L (98-107); GLUCOSE 125 mg/dL (75-110); POTASSIUM 4.3 mmol/L (3.6-5.0); TOTAL PROTEIN 7.9 g/dL (6.3-8.2); TRIGLYCERIDES 167 mg/dL (<150); URIC ACID 6.1 mg/dL (2.5-7.5)
[2019-09-09 14:05] LABS: DIRECT LDL 91 mg/dL (<100)
[2019-09-09 14:09] LABS: FREE T4 (FREE THYROXINE) 1.1 ng/dL (0.78-2.19)
[2019-09-09 14:10] LABS: VLDL CHOLESTEROL 33.4 mg/dL (10-31)
[2019-09-09 14:22] LABS: THYROID STIMULATING HORMONE 1.14 uIU/mL (0.47-4.68)
[2019-09-10 12:36] LABS: CREATININE URINE 142.5 mg/dL (Not Estab.); MICROALBUMIN URINE 6.1 ug/mL (Not Estab.)
== END ==
LOC: OD 11:27
PROVIDERS: ATTEND Internal Medicine
DX: I10 Essential (primary) hypertension (principal); Z79.899 Other long term (current) drug therapy
CPT/HCPCS: 36415; 80053; 80061; 81001; 82043; 82570; 83036; 84439; 84443; 84550; 85025; 86900; 86901

== ENCOUNTER → 2019-09-26 | Outpatient (CLI) | payer MEDICARE, OTHER ==
--- NOTE | 2019-09-26 16:14 | RADIOLOGY REPORT (SQ) ---
EXAM DESCRIPTION: CT CHEST WITHOUT IMAGES COMPLETED DATE/TIME: 09/26/2019 3:54 pm REASON FOR STUDY: R09.1 PLEURISY, R05 COUGH, R07.9 CHEST PAIN, UNSPECIFIED R07.9 CHEST PAIN, UNSPEC IFIED R05 COUGH R09.1 PLEURISY COMPARISON: 06/04/2017 TECHNIQUE: CT scan performed of the chest without intravenous contrast. Images reviewed with lung, soft tissue and bone windows. Reconstructed coronal and sagittal MPR images reviewed. All images st ored on PACS. All CT scanners at this facility use dose modulation, iterative reconstruction, and/or weight based d osing when appropriate to reduce radiation dose to as low as reasonably achievable (ALARA). [facility]: Dose Right [facility]: CareDose [facility]: Dose Right [facility]: Teradose 4D [facility]: [employer] RADIATION DOSE: CT Rad equipment meets quality standard of care and radiation dose reduction techniq ues were employed. CTDIvol: 15.5 mGy. DLP: 617 mGy-cm. mGy. LIMITATIONS: No technical limitations. FINDINGS: LUNGS AND PLEURA: No consolidation or effusions. Small amount of calcified pleural plaque along the left anterior chest wall. This is stable from prior exam. No suspicious pulmonary nodule s. HILAR AND MEDIASTINAL STRUCTURES: No identified masses or abnormal nodes. No obvious aneurysm. HEART AND VASCULAR STRUCTURES: No aneurysm. No pericardial effusion. UPPER ABDOMEN: No significant findings. Limited exam. THYROID AND OTHER SOFT TISSUES: No masses. No adenopathy. BONES: Degenerative changes in the dorsal spine. HARDWARE: None in the chest. OTHER: No other significant findings. IMPRESSION: No significant findings. Calcified pleural plaque on the left is unchanged from 2018. TECHNICAL DOCUMENTATION: JOB ID: [id number] Quality ID # 436: Final reports with documentation of one or more dose reduction techniques (e.g., Au tomated exposure control, adjustment of the mA and/or kV according to patient size, use of iterative reconstruction technique) 2010 [employer]- All Rights Reserved Reading location - IP/workstation name: [email or web address]
--- NOTE | 2019-09-26 16:18 | RADIOLOGY REPORT (SQ) ---
EXAM DESCRIPTION: CT CERVICAL SPINE WITHOUT IMAGES COMPLETED DATE/TIME: 09/26/2019 3:54 pm REASON FOR STUDY: M54.12 RADICULOPATHY, CERVICAL REGION R07.9 CHEST PAIN, UNSPECIFIED R05 COUGH R0 9.1 PLEURISY COMPARISON: 03/24/2017 TECHNIQUE: Axial images acquired through the cervical spine without intravenous contrast. Images re viewed with lung, soft tissue and bone windows. Reconstructed coronal and sagittal MPR images review ed. Images stored on PACS. All CT scanners at this facility use dose modulation, iterative reconstruction, and/or weight based d osing when appropriate to reduce radiation dose to as low as reasonably achievable (ALARA). [facility]: Dose Right [facility]: CareDose [facility]: Dose Right [facility]: Teradose 4D [facility]: [employer] (f. [employer]) RADIATION DOSE: CT Rad equipment meets quality standard of care and radiation dose reduction techniq ues were employed. CTDIvol: 23.0 mGy. DLP: 589 mGy-cm. mGy. LIMITATIONS: None. FINDINGS: ALIGNMENT: Anatomic. MINERALIZATION: Normal. VERTEBRAL BODIES: No fractures or dislocation. DISCS: Multilevel disc space narrowing with osteophytes. FACETS, LATERAL MASSES, POSTERIOR ELEMENTS: Facet arthropathy. No fractures. No dislocation. No ac chipewwa findings. HARDWARE: None in the spine. VISUALIZED RIBS: No fractures. LUNG APICES AND SOFT TISSUES: No significant or acute findings. OTHER: No other significant finding. IMPRESSION: CHRONIC DEGENERATIVE CHANGES. NO ACUTE FINDINGS. FINDINGS ARE STABLE FROM 03/24/2017. TECHNICAL DOCUMENTATION: JOB ID: [id number] Quality ID # 436: Final reports with documentation of one or more dose reduction techniques (e.g., Au tomated exposure control, adjustment of the mA and/or kV according to patient size, use of iterative reconstruction technique) 2010 [employer]- All Rights Reserved Reading location - IP/workstation name: [email or web address]
--- NOTE | 2019-09-26 17:04 | RADIOLOGY REPORT (SQ) ---
EXAM DESCRIPTION: CHEST 2 VIEWS IMAGES COMPLETED DATE/TIME: 09/26/2019 3:46 pm REASON FOR STUDY: R09.1 PLEURISY. COMPARISON: CT chest same date. Chest radiograph, 05/11/2018 EXAM PARAMETERS: NUMBER OF VIEWS: two views TECHNIQUE: Digital Frontal and Lateral radiographic views of the chest acquired. RADIATION DOSE: NA LIMITATIONS: none FINDINGS: LUNGS AND PLEURA: No opacities, masses or pneumothorax. No pleural effusion. MEDIASTINUM AND HILAR STRUCTURES: No masses or contour abnormalities. HEART AND VASCULAR STRUCTURES: Heart normal size. No evidence for failure. BONES: No acute findings. HARDWARE: Spinal stimulator hardware partially visualized. OTHER: No other significant finding. IMPRESSION: NO ACUTE RADIOGRAPHIC FINDING IN THE CHEST. TECHNICAL DOCUMENTATION: JOB ID: [id number] 2010 [employer]- All Rights Reserved Reading location - IP/workstation name: [email or web address]
--- NOTE | 2019-09-26 17:27 | RADIOLOGY REPORT (SQ) ---
EXAM DESCRIPTION: NM LUNG PERFUSION SCAN IMAGES COMPLETED DATE/TIME: 09/26/2019 5:12 pm REASON FOR STUDY: R09.1 PLEURISY R07.9 CHEST PAIN, UNSPECIFIED R05 COUGH R09.1 PLEURISY COMPARISON: None. RADIONUCLIDE AND DOSE: 5 millicuries TC-99m MAA The route of agent administration: Intravenous TECHNIQUE: Eight views of the lungs acquired following injection of MAA. LIMITATIONS: None. FINDINGS: PERFUSION: Perfusion images with normal homogenous activity and no wedge-shaped or segment al defects. OTHER: No other significant finding. IMPRESSION: NORMAL PERFUSION LUNG SCAN. TECHNICAL DOCUMENTATION: JOB ID: [id number] 2010 248 [employer]- All Rights Reserved Reading location - IP/workstation name: [email or web address]
== END ==
LOC: RAD 14:26
PROVIDERS: ATTEND Internal Medicine
DX: M54.12 Radiculopathy, cervical region (principal); R07.9 Chest pain, unspecified; R09.1 Pleurisy; R05 Cough
CPT/HCPCS: 71046; 78580; 71250; 72125; A9540; Q9969

== ENCOUNTER 2019-11-17 21:30 | Emergency (ER) | payer MEDICARE, OTHER ==
[2019-11-17 21:49] VITALS: BP 141/63
--- NOTE | 2019-11-17 23:25 | ER Document Report ---
ED Medical Screen (RME) - General Chief Complaint: Allergic Reaction Stated Complaint: POSSIBLE ALLERGIC REACTION Time Seen by Provider: 11/17/19 23:20 Primary Care Provider: BRANDEN CROWELL MD [Primary Care Provider] - Follow up as needed TRAVEL OUTSIDE OF THE [place] IN LAST 30 DAYS: No - Related Data Allergies/Adverse Reactions: morphine [Morphine] Allergy (Severe, Verified 12/14/18 15:29) blisters at insertion site of iv,severe nausea aspirin [Aspirin] Adverse Reaction (Intermediate, Verified 12/14/18 15:29) abdominal pain oxycodone [From Percocet] Adverse Reaction (Mild, Verified 12/14/18 15:29) Generalized Itching Past Medical History - Past Medical History Cardiac Medical History: Reports: Hx Hypercholesterolemia, Hx Hypertension Denies: Hx Coronary Artery Disease, Hx Heart Attack Pulmonary Medical History: Reports: Hx Asthma, Hx Bronchitis, Hx Pneumonia Denies: Hx COPD, Hx Tuberculosis Neurological Medical History: Reports: Hx Migraine. Denies: Hx Cerebrovascular Accident, Hx Seizures Renal/ Medical History: Denies: Hx Peritoneal Dialysis GI Medical History: Reports: Hx Gastroesophageal Reflux Disease, Hx Hiatal Hernia. Denies: Hx Hepatitis, Hx Ulcer Musculoskeltal Medical History: Reports Hx Arthritis Psychiatric Medical History: Denies: Hx Depression Infectious Medical History: Denies: Hx Hepatitis Past Surgical History: Reports: Hx Appendectomy, Hx Cholecystectomy, Hx Genitourinary Surgery - Bladder tact, Hx Hysterectomy, Hx Neurologic Surgery - Back, Hx Orthopedic Surgery - Bilat foot; Bilat shoulder; Bilat knee; Bilat hip, Hx Tonsillectomy, Hx Tubal Ligation. Denies: Hx Mastectomy, Hx Open Heart Surgery, Hx Pacemaker - Immunizations Hx Diphtheria, Pertussis, Tetanus Vaccination: No Physical Exam - Vital signs Vitals: Temp Pulse Resp BP Pulse Ox 98.6 F 92 18 141/63 H 100 11/17/19 21:47 11/17/19 21:47 11/17/19 21:47 11/17/19 21:47 11/17/19 21:47 Course - Vital Signs Vital signs: Temp Pulse Resp BP Pulse Ox 98.6 F 92 18 141/63 H 100 11/17/19 21:47 11/17/19 21:47 11/17/19 21:47 11/17/19 21:47 11/17/19 21:47 Doctor's Discharge - Discharge Referrals: BRANDEN CROWELL MD [Primary Care Provider] - Follow up as needed
[2019-11-17] MEDS ORDERED: FAMOTIDINE 20 MG TABLET PO ONE (23:26)
--- NOTE | 2019-11-17 23:34 | ER Document Report ---
HPI - HPI Patient complains to provider of: Rash Time Seen by Provider: 11/17/19 23:20 Notes: 69-year-old female to the emergency department with complaints of a diffuse rash to her arms, legs back and abdomen that started couple hours ago. She states they were "big whelps". She states they are very itchy. She states she took 2 Benadryl and that seems to have made the rash get a lot better. Denies any shortness of breath, chest pain, chest tightness, nausea, vomiting, diarrhea, weakness, dizziness. She states that she has not changed any lotions or soaps or detergents recently. She is not changed her diet. She is not been started on any new medications. - ROS Systems Reviewed and Negative: Yes All other systems reviewed and negative - CONSTITUTIONAL Constitutional: DENIES: Fever, Chills - EENT EENT: DENIES: Sore Throat, Ear Pain, Congestion - NEURO Neurology: DENIES: Headache, Weakness - CARDIOVASCULAR Cardiovascular: DENIES: Chest pain - RESPIRATORY Respiratory: DENIES: Trouble Breathing, Coughing - GASTROINTESTINAL Gastrointestinal: DENIES: Abdominal Pain, Nausea, Patient vomiting, Diarrhea - REPRODUCTIVE Reproductive: DENIES: : - MUSCULOSKELETAL Musculoskeletal: DENIES: Extremity pain, Neck Pain, Swelling - DERM Skin Problems: Rash Notes: See HPI Past Medical History - General Information source: Patient - Social History Smoking Status: Never Smoker Frequency of alcohol use: None Drug Abuse: None Family History: Reviewed & Not Pertinent - Past Medical History Cardiac Medical History: Reports: Hx Hypercholesterolemia, Hx Hypertension Denies: Hx Coronary Artery Disease, Hx Heart Attack Pulmonary Medical History: Reports: Hx Asthma, Hx Bronchitis, Hx Pneumonia Denies: Hx COPD, Hx Tuberculosis Neurological Medical History: Reports: Hx Migraine. Denies: Hx Cerebrovascular Accident, Hx Seizures Renal/ Medical History: Denies: Hx Peritoneal Dialysis GI Medical History: Reports: Hx Gastroesophageal Reflux Disease, Hx Hiatal Hernia. Denies: Hx Hepatitis, Hx Ulcer Musculoskeletal Medical History: Reports Hx Arthritis Psychiatric Medical History: Denies: Hx Depression Infectious Medical History: Denies: Hx Hepatitis Past Surgical History: Reports: Hx Appendectomy, Hx Cholecystectomy, Hx Genitourinary Surgery - Bladder tact, Hx Hysterectomy, Hx Neurologic Surgery - Back, Hx Orthopedic Surgery - Bilat foot; Bilat shoulder; Bilat knee; Bilat hip, Hx Tonsillectomy, Hx Tubal Ligation. Denies: Hx Mastectomy, Hx Open Heart Surgery, Hx Pacemaker - Immunizations Hx Diphtheria, Pertussis, Tetanus Vaccination: No Hx Pneumococcal Vaccination: 12/24/12 Vertical Provider Document - CONSTITUTIONAL Agree With Documented VS: Yes Exam Limitations: No Limitations General Appearance: WD/WN - INFECTION CONTROL TRAVEL OUTSIDE OF THE [place] IN LAST 30 DAYS: No - HEENT HEENT: Atraumatic, Normocephalic, PERRLA Notes: No tongue swelling, no lip swelling, grossly patent airway. No Guera's angina. No voice change. - NECK Neck: Normal Inspection, Supple - RESPIRATORY Respiratory: Breath Sounds Normal, No Respiratory Distress. negative: Rales, Rhonchi, Wheezing - CARDIOVASCULAR Cardiovascular: Regular Rate, Regular Rhythm, No Murmur - GI/ABDOMEN Gastrointestinal: Abdomen Soft, Abdomen Non-Tender - BACK Notes: Mild hives to the back, noted healed incision from lumbar surgery - MUSCULOSKELETAL/EXTREMETIES Musculoskeletal/Extremeties: MAEW, FROM - NEURO Level of Consciousness: Awake, Alert, Appropriate Motor/Sensory: No Motor Deficit, No Sensory Deficit - DERM Integumentary: Rash - There is a rash to bilateral arms and legs that seems to be resolving. It is urticarial in nature with mild erythema. No desquamation, necrosis, vesicles, herald patch Course - Re-evaluation Re-evalutation: 11/17/19 23:54 Impression: Allergic reaction with hives. Go ahead and start on Pepcid, Benadryl. Patient states she would like to hold on any steroids unless the hives start to get worse. We will write her for a prescription for it in case it does happen. Follow-up with primary care and dermatology. She is encouraged to return if she has worsening symptoms such as chest pain, shortness of breath, mouth swelling, diarrhea, dizziness, passing out. Patient agrees with the plan. - Vital Signs Vital signs: Temp Pulse Resp BP Pulse Ox 98.6 F 92 18 141/63 H 100 11/17/19 21:47 11/17/19 21:47 11/17/19 21:47 11/17/19 21:47 11/17/19 21:47 Discharge - Discharge Clinical Impression: Hives Allergic reaction Qualifiers: Encounter type: initial encounter Qualified Code(s): T78.40XA - Allergy, unspecified, initial encounter Condition: Stable Disposition: HOME, SELF-CARE Instructions: Acute Allergic Reaction ([facility]) Additional Instructions: Take medicines as prescribed. Follow up with primary care and director sales support without fail. return if worse. Prescriptions: Hydroxyzine HCl [Atarax 10 mg Tablet] 10 mg PO Q4H #20 tablet Famotidine [Pepcid 20 mg Tablet] 20 mg PO BID #20 tablet Prednisone 20 mg PO DAILY #6 tablet Referrals: BRANDEN CROWELL MD [Primary Care Provider] - Follow up in 3-5 days VARUN WATTERS DO [ACTIVE STAFF] - Follow up in 1 week (for dermatology follow up)
== END 2019-11-17 23:40 | disposition home or self-care (01) ==
LOC: ER 21:30
DX: T78.40XA Allergy, unspecified, initial encounter (principal); L50.9 Urticaria, unspecified; R21 Rash and other nonspecific skin eruption; I10 Essential (primary) hypertension; J45.909 Unspecified asthma, uncomplicated; Y92.9 Unspecified place or not applicable
CPT/HCPCS: 99283; A9270

== ENCOUNTER 2019-12-12 12:46 | Emergency (ER) | payer MEDICARE, OTHER ==
[2019-12-12 12:58] VITALS: BP 172/79
--- NOTE | 2019-12-12 13:00 | ER Document Report ---
ED Medical Screen (RME) - General Chief Complaint: Arm Pain Stated Complaint: RIGHT HAND,ARM SWELLING Time Seen by Provider: 12/12/19 12:56 Primary Care Provider: BRANDEN CROWELL MD [Primary Care Provider] - Follow up as needed Mode of Arrival: Ambulatory Information source: Patient Notes: 69-year-old female presented to ED for complaint of right elbow pain and swelling with pain going down to the hand and decreased movement to the hand due to the pain in the elbow. She states she has had gout in the past but not in this location. She does have a history of high blood pressure cholesterol and diabetes. I have ordered blood urine and x-ray for the elbow. She will be seen by another provider. The elbow is red and warm to the touch as well as swollen. I have greeted and performed a rapid initial assessment of this patient. A comprehensive ED assessment and evaluation of the patient, analysis of test results and completion of medical decision making process will be conducted by an additional ED providers. TRAVEL OUTSIDE OF THE [place] IN LAST 30 DAYS: No - Related Data Allergies/Adverse Reactions: morphine [Morphine] Allergy (Severe, Verified 12/14/18 15:29) blisters at insertion site of iv,severe nausea aspirin [Aspirin] Adverse Reaction (Intermediate, Verified 12/14/18 15:29) abdominal pain oxycodone [From Percocet] Adverse Reaction (Mild, Verified 12/14/18 15:29) Generalized Itching Past Medical History - Past Medical History Cardiac Medical History: Reports: Hx Hypercholesterolemia, Hx Hypertension Denies: Hx Coronary Artery Disease, Hx Heart Attack Pulmonary Medical History: Reports: Hx Asthma, Hx Bronchitis, Hx Pneumonia Denies: Hx COPD, Hx Tuberculosis Neurological Medical History: Reports: Hx Migraine. Denies: Hx Cerebrovascular Accident, Hx Seizures Renal/ Medical History: Denies: Hx Peritoneal Dialysis GI Medical History: Reports: Hx Gastroesophageal Reflux Disease, Hx Hiatal Hernia. Denies: Hx Hepatitis, Hx Ulcer Musculoskeltal Medical History: Reports Hx Arthritis Psychiatric Medical History: Denies: Hx Depression Infectious Medical History: Denies: Hx Hepatitis Past Surgical History: Reports: Hx Appendectomy, Hx Cholecystectomy, Hx Genitourinary Surgery - Bladder tact, Hx Hysterectomy, Hx Neurologic Surgery - Back, Hx Orthopedic Surgery - Bilat foot; Bilat shoulder; Bilat knee; Bilat hip, Hx Tonsillectomy, Hx Tubal Ligation. Denies: Hx Mastectomy, Hx Open Heart Surgery, Hx Pacemaker - Immunizations Hx Diphtheria, Pertussis, Tetanus Vaccination: No Doctor's Discharge - Discharge Referrals: BRANDEN CROWELL MD [Primary Care Provider] - Follow up as needed
--- NOTE | 2019-12-12 13:33 | RADIOLOGY REPORT (SQ) ---
EXAM DESCRIPTION: ELBOW RIGHT OVER 2 VIEWS IMAGES COMPLETED DATE/TIME: 12/12/2019 1:24 pm REASON FOR STUDY: Pain swelling fever to the elbow pain down the arm COMPARISON: None. NUMBER OF VIEWS: Three views. TECHNIQUE: AP, lateral, and single oblique radiographic images acquired of the right elbow. LIMITATIONS: None. FINDINGS: MINERALIZATION: Normal. BONES: No definite fracture. Corticated ossific density along the lateral condyles, likely degenerat ravindra. Small additional scattered osteophytes. No suspicious osseous lesions. JOINT: No effusion. SOFT TISSUES: No soft tissue swelling. No foreign body. OTHER: No other significant finding. IMPRESSION: No evidence of acute bony abnormality. No significant joint effusion. Mild degenerative change about the elbow. TECHNICAL DOCUMENTATION: JOB ID: [id number] 2010 [employer]- All Rights Reserved Reading location - IP/workstation name: [email or web address]
[2019-12-12 14:54] LABS: ABSOLUTE EOSINOPHILS # (AUTO) 0.1 10^3/uL (0.0-0.6); ABSOLUTE LYMPHOCYTES (AUTO) 2.5 10^3/uL (0.5-4.7); ABSOLUTE MONOCYTES (AUTO) 1.1 10^3/uL (0.1-1.4); ABSOLUTE NEUT (AUTO) 7.2 10^3/uL (1.7-8.2); BASOPHILS % (AUTO) 0.5 % (0-2); EOSINOPHILS % (AUTO) 0.5 % (0-6); HEMATOCRIT 36.8 % (36.0-47.0); HEMOGLOBIN 12.4 g/dL (12.0-15.5); LYMPHOCYTES % (AUTO) 23.2 % (13-45); MEAN CORPUSCULAR HEMOGLOBIN 28.2 pg (27.0-33.4); MEAN CORPUSCULAR HGB CONC 33.8 g/dL (32.0-36.0); MEAN CORPUSCULAR VOLUME 83 fl (80-97); MONOCYTES % (AUTO) 10.1 % (3-13); PLATELET COUNT 234 10^3/uL (150-450); RED BLOOD COUNT 4.42 10^6/uL (3.72-5.28); RED CELL DISTRIBUTION WIDTH 14.6 % (11.5-14.0); SEGMENTED NEUTROPHILS % (AUTO) 65.7 % (42-78); TOTAL CELLS COUNTED % (AUTO) 100 %; WHITE BLOOD COUNT 10.9 10^3/uL (4.0-10.5)
[2019-12-12 15:18] LABS: ALBUMIN 4.6 g/dL (3.5-5.0); ALKALINE PHOSPHATASE 90 U/L (38-126); ANION GAP 15 (5-19); ASPARTATE AMINO TRANSFERASE 34 U/L (14-36); BILIRUBIN,DIRECT 0.3 mg/dL (0.0-0.4); BILIRUBIN,TOTAL 0.6 mg/dL (0.2-1.3); BLOOD UREA NITROGEN 12 mg/dL (7-20); CALCIUM 10.4 mg/dL (8.4-10.2); CARBON DIOXIDE 26 mmol/L (22-30); CHLORIDE 100 mmol/L (98-107); GLUCOSE 102 mg/dL (75-110); TOTAL PROTEIN 7.3 g/dL (6.3-8.2); URIC ACID 5.3 mg/dL (2.5-7.5)
[2019-12-12] MEDS ORDERED: IBUPROFEN 800 MG TABLET PO ONE (16:48)
== END 2019-12-12 17:00 | disposition left against medical advice (07) ==
LOC: ER 12:46
DX: M25.521 Pain in right elbow (principal); I10 Essential (primary) hypertension; J45.909 Unspecified asthma, uncomplicated; Z87.39 Personal history of other diseases of the musculoskeletal system and connective tissue; Z53.20 Procedure and treatment not carried out because of patient's decision for unspecified reasons; Z88.6 Allergy status to analgesic agent; Z88.5 Allergy status to narcotic agent
CPT/HCPCS: 36415; 80053; 84550; 85025; 86140; 99281

== ENCOUNTER → 2019-12-29 | Outpatient (CLI) | payer MEDICARE, OTHER ==
--- NOTE | 2019-12-29 15:11 | RADIOLOGY REPORT (SQ) ---
EXAM DESCRIPTION: HIPS BILATERAL IMAGES COMPLETED DATE/TIME: 12/29/2019 2:09 pm REASON FOR STUDY: RT HIP PAIN M25.551 PAIN IN RIGHT HIP COMPARISON: 12/26/2014 NUMBER OF VIEWS: Two views TECHNIQUE: AP pelvis and additional frog-leg view of both hips. LIMITATIONS: None. FINDINGS: MINERALIZATION: Normal. HIPS: Prior bilateral hip arthroplasty. No acute findings. PELVIS AND SACRUM: No acute fracture or dislocation. No worrisome bone lesions. PUBIS AND ISCHIUM: No acute fracture. LOWER LUMBAR SPINE: Postsurgical changes the visualized lumbar spine. Since prior study neurostimula tor has been placed. Battery pack overlies the left ilium. SOFT TISSUES: No findings. OTHER: No other significant finding. IMPRESSION: Postsurgical changes. No acute findings. TECHNICAL DOCUMENTATION: JOB ID: [id number] 2010 [employer]- All Rights Reserved Reading location - IP/workstation name: [email or web address]
== END ==
LOC: OD 13:53
PROVIDERS: ATTEND Pain Medicine Pain Medicine
DX: M25.551 Pain in right hip (principal)
CPT/HCPCS: 73522

== ENCOUNTER → 2020-03-12 | Outpatient (CLI) | payer MEDICARE, OTHER ==
--- NOTE | 2020-03-13 08:57 | WOMENS IMAGING REPORT ---
EXAM DESCRIPTION: 3D SCREENING MAMMO BILAT IMAGES COMPLETED DATE/TIME: 03/12/2020 10:19 am REASON FOR STUDY: Z12.31 ENCOUNTER FOR SCREENING MAMMOGRAM FOR MALIGNANT NEOPLASM OF BREAST Z12.31 ENCNTR SCREEN MAMMOGRAM FOR MALIGNANT NEOPLASM OF [place] COMPARISON: 03/11/2019, 03/04/2018, 02/24/2017, 02/21/2016 EXAM PARAMETERS: Views: Standard craniocaudal and mediolateral oblique views of each breast recorded using digital acquisition and breast tomosynthesis. Read with the assistance of CAD. .[facility] - [employer] Operations Officer Version 9.2 LIMITATIONS: None. FINDINGS: No suspicious masses, suspicious calcifications or architectural distortion. No areas of c oncern. IMPRESSION: NEGATIVE MAMMOGRAM. BIRADS 1. BREAST DENSITY: b. There are scattered areas of fibroglandular density. BIRAD: ASSESSMENT: 1 NEGATIVE RECOMMENDATION: ROUTINE SCREENING COMMENT: The patient has been notified of the results by letter per MQSA requirements. Additional no tification policies are in place for contacting patient with suspicious or incomplete findings. Quality ID #[id number]: The [employer] recommends an annual screening mammogram for women aged 40 years or over. This facility utilizes a reminder system to ensure that all patients receive reminder letters, and/or direct phone calls for appointments. This includes reminders for routine scr eening mammograms, diagnostic mammograms, or other Breast Imaging Interventions when appropriate. Th is patient will be placed in the appropriate reminder system. TECHNICAL DOCUMENTATION: FINDING NUMBER: (1) ASSESSMENT: (1) JOB ID: [id number] 2010 [employer]- All Rights Reserved Reading location - IP/workstation name: [email or web address]
== END ==
LOC: WI 11:02
PROVIDERS: ATTEND Obstetrics & Gynecology Gynecology
DX: Z12.31 Encounter for screening mammogram for malignant neoplasm of breast (principal)
CPT/HCPCS: 77063; 77067